=== PATIENT | male | born 1950 | race Caucasian/White ===

== ENCOUNTER 2019-02-11 04:31 | Inpatient (IN) ==
[2019-02-11] MEDS ORDERED: NS 1,000 ML ONE ×2 (04:33→05:17)
[2019-02-11] MEDS ORDERED: NS 1,000 ML IV ONE ×4 (04:37→07:24)
--- NOTE | 2019-02-11 04:46 | PROVIDER DOCUMENTATION ---
HPI-Fever - General Chief Complaint: Shortness of Breath Stated Complaint: AMS/difficulty breathing Time Seen by Provider: 02/11/19 04:40 Source: patient Allergies/Adverse Reactions: Patient Allergies Allergy/AdvReac Type Severity Reaction Status Date / Time No Known Allergies Allergy Verified 01/11/19 20:52 Home Medications: Home Medication List Medication Instructions Recorded Confirmed Last Taken Type Hum Insulin NPH/Reg Insulin Hm 32 units SQ BID 01/31/17 02/11/19 01/11/19 History [Novolin 70-30 100 Unit/ml Vial] Insulin Lispro [Humalog] 5 units SQ DIRECTED 02/11/19 02/11/19 Unknown History - History of Present Illness-Fever Nature of Presenting Problem: Patient is a 69 year old white male with renal failure requiring hemodialysis and sepsis, just discharged from [facility] yesterday evening, who presents by [facility] ambulance with severe hypotension. Patient is folowed by Dr. Morales. Fever Severity/Quality: reports: subjective Onset/Duration: reports: unsure Timing: reports: still present Context: reports: decreased mental status Similar Symptoms Previously?: Yes Recently seen or treated by another doctor?: Yes ([facility]) - Glascow Coma Score Best Eye Response (Shant): (4) open spontaneously Best Verbal Response (Shant): (5) oriented Best Motor Response ([place]): (6) obeys commands [place] Total: 15 Review of Systems - Adult - REVIEW OF SYSTEMS - ADULT ROS:: limited per condition Constitutional: reports: chills Eyes: reports: no symptoms reported Ears, Nose, Mouth & Throat: reports: no symptoms reported Cardiovascular: denies: chest pain Respiratory: reports: shortness of breath Gastrointestinal: denies: abdominal pain Past History - Adult - PAST MEDICAL HISTORY-ADULT Review of Records: reports: Old Records Reviewed, Nursing Assessment Review, Medications Reviewed, Social history reviewed & non-contributory. Cardiovascular: reports: denies history Respiratory: reports: denies history Gastrointestinal: reports: other (gallbladder disease) Genitourinary: reports: dialysis, ESRD, kidney stones Endocrine/Immune: reports: Diabetes - IMMUNIZATION STATUS Childhood Immunizations: See Nurse Assessment Flu Vaccine: See Nurse Assessment - FAMILY HISTORY Family History: reviewed, not pertinent Physical Exam-General - CONSTITUTIONAL General Appearance: other (cool, clammy, slow mentation, oriented to person) - EYES Eyes: other (clear) - HEAD, EARS, NOSE, MOUTH & THROAT HENMT: moist mucous membranes - NECK Neck: supple - RESPIRATORY Respiratory: no respiratory distress, no accessory muscle use, decreased breath sounds, other (large dialysis catheter over right upper chest) - CARDIOVASCULAR Cardiovascular: regular rate, rhythm - GASTROINTESTINAL (ABDOMEN) Abdominal Exam: non tender, soft - LYMPHATIC Lymphatic: no adenopathy - MUSCULOSKELETAL Back Exam: normal inspection Extremity: other (dressing over right groin due to previous central line) - SKIN Integumentary: other (poor turgor, cool) - NEUROLOGIC Neurologic: other (nonfocal) Progress - PLAN OF CARE/RESULTS Progress/Plan/Lab Results: Vital Signs - 8 hr 02/11/19 04:33 02/11/19 05:05 02/11/19 05:10 Temperature Pulse Rate 98 H 89 87 Respiratory Rate 26 H 15 16 Blood Pressure 77/48 80/39 75/41 O2 Sat by Pulse Oximetry 100 100 100 02/11/19 05:15 02/11/19 05:20 02/11/19 05:25 Temperature Pulse Rate 80 89 91 H Respiratory Rate 16 15 14 Blood Pressure 83/46 73/46 87/54 O2 Sat by Pulse Oximetry 100 100 100 02/11/19 05:30 02/11/19 05:35 02/11/19 05:40 Temperature Pulse Rate 88 90 94 H Respiratory Rate 20 16 15 Blood Pressure 82/49 74/53 78/37 O2 Sat by Pulse Oximetry 100 100 100 02/11/19 05:43 02/11/19 05:44 02/11/19 05:45 Temperature 95.3 F L Pulse Rate 90 69 Respiratory Rate 14 16 Blood Pressure 93/47 80/51 O2 Sat by Pulse Oximetry 100 100 02/11/19 05:47 02/11/19 05:49 02/11/19 06:05 Temperature Pulse Rate 90 90 96 H Respiratory Rate 13 18 14 Blood Pressure 81/65 78/36 81/63 O2 Sat by Pulse Oximetry 100 100 100 02/11/19 06:07 02/11/19 06:10 02/11/19 06:12 Temperature Pulse Rate 95 H 95 H 95 H Respiratory Rate 26 H Blood Pressure 78/59 110/77 94/57 O2 Sat by Pulse Oximetry 100 100 100 02/11/19 06:15 02/11/19 06:17 02/11/19 06:20 Temperature Pulse Rate 94 H 94 H 94 H Respiratory Rate 25 H 28 H 24 Blood Pressure 94/58 102/65 107/55 O2 Sat by Pulse Oximetry 100 100 100 02/11/19 06:23 02/11/19 06:25 02/11/19 06:27 Temperature 95.4 F L Pulse Rate 99 H 97 H 97 H Respiratory Rate 14 16 25 H Blood Pressure 117/52 128/69 104/66 O2 Sat by Pulse Oximetry 100 100 100 02/11/19 06:31 02/11/19 06:32 02/11/19 06:35 Temperature Pulse Rate 95 H 95 H 96 H Respiratory Rate 26 H 26 H 25 H Blood Pressure 100/56 90/60 95/68 O2 Sat by Pulse Oximetry 100 96 96 02/11/19 06:37 02/11/19 06:40 02/11/19 06:42 Temperature Pulse Rate 96 H 96 H 96 H Respiratory Rate 17 14 25 H Blood Pressure 108/57 87/57 110/67 O2 Sat by Pulse Oximetry 100 100 100 02/11/19 06:45 02/11/19 07:00 02/11/19 07:20 Temperature Pulse Rate 97 H 100 H Respiratory Rate 31 H 19 Blood Pressure 122/64 125/65 O2 Sat by Pulse Oximetry 100 100 100 02/11/19 07:22 02/11/19 08:00 Temperature 97.4 F L Pulse Rate 101 H 104 H Respiratory Rate 24 14 Blood Pressure 96/53 132/71 O2 Sat by Pulse Oximetry 100 100 Laboratory Results - last 24 hr 02/11/19 02/11/19 02/11/19 05:05 05:05 05:05 WBC 26.59 H RBC 3.35 L Hgb 9.3 L Hct 30.3 L MCV 90.4 MCH 27.8 MCHC 30.7 L RDW Std Deviation 14.3 Plt Count 331 MPV 10.9 H Immature Gran % (Auto) 1.7 H Neut % (Auto) 82.5 H Lymph % (Auto) 8.6 L [place] % (Auto) 7.0 Eos % (Auto) 0.0 Baso % (Auto) 0.2 Immature Gran # (Auto) 0.45 H Neut # (Auto) 21.92 H Lymph # (Auto) 2.29 [place] # (Auto) 1.86 H Eos # (Auto) 0.01 Baso # (Auto) 0.06 Segmented Neutrophils 87 H Band Neutrophils 1 Lymphocytes 6 L Monocytes 4 Atypical Lymphocytes 2.0 Hypochromia 1+ Poikilocytosis OCCASIONAL Anisocytosis OCCASIONAL Macrocytosis OCCASIONAL Ovalocytes OCCASIONAL Stomatocytes OCCASIONAL PT INR PTT (Actin FS) Sodium Potassium Chloride Carbon Dioxide Anion Gap BUN Creatinine Estimated GFR/1.73 m2 BUN/Creatinine Ratio Glucose Calculated Osmolality Calcium Magnesium Total Bilirubin AST ALT Alkaline Phosphatase Creatine Kinase Troponin T 0.425 H* Lwt-F-Lbdhosctrnc Pept 9262 H Total Protein Albumin Globulin Albumin/Globulin Ratio Plasma Lactate Urine Source Urine Color Urine Turbidity Urine pH Ur Specific [place] Urine Protein Ur Glucose (Stick) Ur Ketones (Stick) Urine Blood Urine Nitrite Urine Bilirubin Urobilinogen Dipstick Urine Leukocytes Urine WBC (Auto) Urine RBC (Auto) U Epithel Cells (Auto) Urine Bacteria (Auto) Urine Crystals Small Round Cells Urine Casts Urine Yeast-like Cells Acetone Level 02/11/19 02/11/19 02/11/19 05:05 05:20 05:20 WBC RBC Hgb Hct MCV MCH MCHC RDW Std Deviation Plt Count MPV Immature Gran % (Auto) Neut % (Auto) Lymph % (Auto) [place] % (Auto) Eos % (Auto) Baso % (Auto) Immature Gran # (Auto) Neut # (Auto) Lymph # (Auto) [place] # (Auto) Eos # (Auto) Baso # (Auto) Segmented Neutrophils Band Neutrophils Lymphocytes Monocytes Atypical Lymphocytes Hypochromia Poikilocytosis Anisocytosis Macrocytosis Ovalocytes Stomatocytes PT INR PTT (Actin FS) Sodium 135 L Potassium 4.6 Chloride 98 Carbon Dioxide 5 L Anion Gap 32 BUN 17 Creatinine 3.7 H Estimated GFR/1.73 m2 16 BUN/Creatinine Ratio 5 Glucose 378 H Calculated Osmolality 287 Calcium 7.6 L Magnesium 1.7 Total Bilirubin 0.40 AST 22 ALT 11 Alkaline Phosphatase 416 H Creatine Kinase 80 Troponin T Qnd-C-Yqmnyfkahds Pept Total Protein 4.9 L Albumin 2.6 L Globulin 2.0 Albumin/Globulin Ratio 1.0 Plasma Lactate 5.7 H* Urine Source CATH Urine Color YELLOW Urine Turbidity TURBID Urine pH 6.0 Ur Specific [place] 1.009 Urine Protein 200 A Ur Glucose (Stick) 100 A Ur Ketones (Stick) 10 A Urine Blood MODERATE A Urine Nitrite NEGATIVE Urine Bilirubin NEGATIVE Urobilinogen Dipstick NORMAL Urine Leukocytes LARGE A Urine WBC (Auto) TNTC A Urine RBC (Auto) <10 U Epithel Cells (Auto) <10 Urine Bacteria (Auto) 1+ Urine Crystals NONE SEEN Small Round Cells NONE SEEN Urine Casts NONE SEEN Urine Yeast-like Cells PRESENT Acetone Level 02/11/19 02/11/19 02/11/19 05:20 08:40 09:10 WBC RBC Hgb Hct MCV MCH MCHC RDW Std Deviation Plt Count MPV Immature Gran % (Auto) Neut % (Auto) Lymph % (Auto) [place] % (Auto) Eos % (Auto) Baso % (Auto) Immature Gran # (Auto) Neut # (Auto) Lymph # (Auto) [place] # (Auto) Eos # (Auto) Baso # (Auto) Segmented Neutrophils Band Neutrophils Lymphocytes Monocytes Atypical Lymphocytes Hypochromia Poikilocytosis Anisocytosis Macrocytosis Ovalocytes Stomatocytes PT 15.9 INR 1.20 PTT (Actin FS) 35.7 Sodium Potassium Chloride Carbon Dioxide Anion Gap BUN Creatinine Estimated GFR/1.73 m2 BUN/Creatinine Ratio Glucose Calculated Osmolality Calcium Magnesium Total Bilirubin AST ALT Alkaline Phosphatase Creatine Kinase Troponin T Egd-G-Bxwuntpjgoq Pept Total Protein Albumin Globulin Albumin/Globulin Ratio Plasma Lactate 3.0 H Urine Source Urine Color Urine Turbidity Urine pH Ur Specific [place] Urine Protein Ur Glucose (Stick) Ur Ketones (Stick) Urine Blood Urine Nitrite Urine Bilirubin Urobilinogen Dipstick Urine Leukocytes Urine WBC (Auto) Urine RBC (Auto) U Epithel Cells (Auto) Urine Bacteria (Auto) Urine Crystals Small Round Cells Urine Casts Urine Yeast-like Cells Acetone Level LARGE A Orders Category Date Time Status Admit - [facility] Routine AdmDCTranf 02/11/19 07:49 Active Cardiac Monitoring DIRECTED Care 02/11/19 05:21 Active Core Temperature ORDERED Care 02/11/19 04:46 Active Alan Cath Insertion ORDERED Care 02/11/19 05:12 Active IV Insertion ORDERED Care 02/11/19 05:12 Active Intake and Output-Strict ORDERED Care 02/11/19 05:12 Active Notify MD of + Sepsis Screen NOW Care 02/11/19 05:21 Active Notify MD of + Sepsis Screen NOW Care 02/11/19 09:05 Active Notify MD/PA/BRANDON for exam NOW Care 02/11/19 05:12 Active Notify Physician As Ordered Care 02/11/19 09:05 Active Repeat Vital Signs .Blood Pressure Care 02/11/19 05:12 Active Repeat Vital Signs .Heart Rate Care 02/11/19 05:12 Active Repeat Vital Signs .Oxygen Saturation Care 02/11/19 05:12 Active Repeat Vital Signs .Respiratory Rate Care 02/11/19 05:12 Active Repeat Vital Signs .Temp Care 02/11/19 05:12 Active Update & Confirm Home Medicati ROUTINE Care 02/11/19 08:01 Active CHEST-PORTABLE [RAD] Stat Exams 02/11/19 04:40 Completed ABG [RESP] Routine Lab 02/11/19 05:14 Ordered ABG [RESP] Routine Lab 02/11/19 09:06 Ordered ACETONE SERUM [CHEM] Stat Lab 02/11/19 09:10 Completed BASIC METABOLIC PANEL [CHEM] Routine Lab 02/12/19 06:00 Ordered BLOOD CULTURE [BLDCUL] Stat Lab 02/11/19 05:31 Ordered BNP [PRO B-NATRIURETIC PEPTIDE] Stat Lab 02/11/19 05:05 Completed CBC WITH DIFF [HEME] Routine Lab 02/12/19 06:00 Ordered CBC WITH DIFF [HEME] Stat Lab 02/11/19 05:05 Completed CK PROFILE [SP CHEM] Stat Lab 02/11/19 05:05 Completed CMP [COMPREHENSIVE METABOLIC PANEL] [CHEM] Stat Lab 02/11/19 05:05 Completed LACTATE, PLASMA [CHEM] Lab 02/11/19 08:40 Completed LACTATE, PLASMA [CHEM] Lab 02/11/19 11:30 Uncollected LACTATE, PLASMA [CHEM] Timed Lab 02/11/19 05:20 Completed MAGNESIUM [CHEM] Stat Lab 02/11/19 05:05 Completed PROTIME WITH INR [COAG] Stat Lab 02/11/19 05:20 Completed PROTIME WITH INR [COAG] Stat Lab 02/11/19 09:05 Uncollected PTT [COAG] Stat Lab 02/11/19 05:20 Completed TROPONIN T Stat Lab 02/11/19 05:05 Completed URINALYSIS W/POSS RFLX CULT [URINALYSIS] Stat Lab 02/11/19 05:20 Completed URINE CULTURE [RM] Routine Lab 02/11/19 06:40 Ordered URINE MANUAL MICROSCOPIC [URINALYSIS] Stat Lab 02/11/19 05:20 Completed 0.9% Sodium Chloride Inj [Ns] 1,000 ml Med 02/11/19 04:33 Discontinued .ROUTE As directed 0.9% Sodium Chloride Inj [Ns] 1,000 ml Med 02/11/19 05:17 Discontinued .ROUTE As directed 0.9% Sodium Chloride Inj [Ns] 1,000 ml Med 02/11/19 07:24 Discontinued IV 50 mls/hr 0.9% Sodium Chloride Inj [Ns] 1,000 ml Med 02/11/19 04:37 Discontinued IV 999 mls/hr 0.9% Sodium Chloride Inj [Ns] 1,000 ml Med 02/11/19 04:40 Discontinued IV 999 mls/hr 0.9% Sodium Chloride Inj [Ns] 1,000 ml Med 02/11/19 05:12 Discontinued IV As Directed mls/hr 0.9% Sodium Chloride Inj [Ns] 100 ml Med 02/11/19 05:15 Active Vasopressin [Pitressin] 40 unit IV As Directed mls/hr 0.9% Sodium Chloride Inj [Ns] 500 ml Med 02/11/19 08:31 Discontinued .ROUTE As directed 0.9% Sodium Chloride Inj [Ns] 500 ml Med 02/11/19 05:12 Discontinued IV 999 mls/hr Dextrose 5%-0.45% NaCl Inj [D5 1/2 Ns] 250 ml Med 02/11/19 05:15 Active Norepinephrine [Levophed] 8 mg IV As Directed mls/hr Dextrose 5%-0.45% NaCl Inj [D5 1/2 Ns] 250 ml Med 02/11/19 05:13 Discontinued .ROUTE As directed Dextrose 5%-Water Inj [D5w] 250 ml Med 02/11/19 05:15 Discontinued Epinephrine 8 mg IV As Directed mls/hr Norepinephrine [Levophed] Med 02/11/19 05:11 Discontinued 8 mg .ROUTE .STK-MED ONE Piperacillin/Tazobactam [Zosyn] 3.375 gm Med 02/11/19 05:14 Discontinued 0.9% Sodium Chloride Inj [Ns] 50 ml IV NOW Sodium Bicarbonate 8.4% Med 02/11/19 09:03 Discontinued 50 meq IV NOW ONE Vancomycin 1 gm/Ns Med 02/11/19 05:12 Discontinued 1 gm in 250 ml IV NOW Oxygen Device Stat Oth 02/11/19 05:21 Active Transfer/Admit Order [TRANSFER] Routine Transfer 02/11/19 07:31 Ordered Result Diagrams: 02/11/19 05:05 02/11/19 05:05 - XRAY 1 XRAY Study: Chest XRAY Interpretation: RLL infiltrate - CONSULTS/PCP/HOSPITALIST Notification #1 *Consult/PCP/Hospitalist*: Dr. June, hospitalist Time Discussed: 06:30 Reason/Comments: admit to ICU at [facility] when available Consult Disposition: Admit - CHANGE OF SHIFT REPORT (ED Provider) 1 Report Given and Care Transferred to:: Dr. Thomas Time of Transfer: 07:00 Items Pending: Labs, Physician Consult/Arrival (manage sepsis until bed is available at [facility] ICU) Departure - Departure Date of Disposition Decision: 02/11/19 Time of Disposition Decision: 09:31 DIAGNOSIS: Septic shock UTI (urinary tract infection) Qualifiers: Urinary tract infection type: site unspecified Hematuria presence: with hematuria Qualified Code(s): N39.0 - Urinary tract infection, site not specified Pneumonia Qualifiers: Pneumonia type: due to unspecified organism Laterality: right Lung location: lower lobe of lung Qualified Code(s): J18.1 - Lobar pneumonia, unspecified organism Uncontrolled diabetes mellitus Qualifiers: Diabetes mellitus type: type 2 Glycemic state: with hyperglycemia Qualified Code(s): E11.65 - Type 2 diabetes mellitus with hyperglycemia Disposition: ADMITTED INPATIENT 09 Certified Medical Emergency: Emergent Condition: Critical Referrals and Follow-Ups: Adonay Subramanian [Primary Care Provider] - - Critical Care Note This patient required my direct & personal management of CC.: Yes Total Time (mins): 95 Critical Care Statement: This patient required my direct personal management to treat or rule out processes, the absence of which, could potentiallly result in sudden, clinically significant life or limb threatening deterioration. Attestation - Physician/ LOPEZ Attestation Patient care was provided by Advanced Practice Provider:: No The physician spent face to face time with patient:: Yes Advanced Practice Provider documentation review:: Supervising physician onsite and consulted in the evaluation and care of this patient. The physician did have a face to face encounter with the patient. Sepsis: Tissue Perfusion Assmt - Physical Exam Assessment Date: 02/11/19 Time Assessment Initialized: 07:38 Vital Signs: Last Vital Signs Temp 97.4 F L 02/11/19 08:00 Pulse 104 H 02/11/19 08:00 Resp 14 02/11/19 08:00 BP 132/71 02/11/19 08:00 Pulse Ox 100 02/11/19 08:00 Height 5 ft 11 in Weight 79.379 kg Lung Sounds:: rhonchi, diminished Heart Sounds:: Regular Capillary Refill Time: Greater Than 2 Seconds Skin Exam:: pallor, turgor good - Impression Impression:: Tissue Perfusion Adequate - Plan Plan:: See Orders
[2019-02-11] MEDS ORDERED: LEVOPHED ONE (05:11)
[2019-02-11] MEDS ORDERED: VANCOMYCIN 1 GM/NS 1 GM/250 ML IVPB IV ONE (05:12)
[2019-02-11] MEDS: NS 500 ML IV ONE ×2 (05:12→06:00)
[2019-02-11] MEDS ORDERED: D5 1/2 NS 250 ML ONE (05:13)
[2019-02-11] MEDS ORDERED: ZOSYN 3.375 GM in NS 50 ML IV ONE (05:14)
[2019-02-11] MEDS ORDERED: EPINEPHRINE 8 MG in D5W 250 ML IV SCH (05:15)
[2019-02-11] MEDS ORDERED: PITRESSIN 40 UNIT in NS 100 ML IV SCH (05:15)
[2019-02-11] MEDS: LEVOPHED 8 MG in D5 1/2 NS 250 ML IV SCH ×11 (05:24→13:36)
[2019-02-11 05:33] LABS: BASO# 0.06 X1000 (0.0-0.2); BASO% 0.2 % (0.0-0.8); EOS# 0.01 X1000 (0.0-0.7); HEMATOCRIT 30.3 % (42.0-52.0); HEMOGLOBIN 9.3 g/dL (14.0-18.0); IMM GRAN# 0.45 X1000 (0.0-0.04); IMM GRAN% 1.7 % (0.0-0.5); LYMPH# 2.29 X1000 (1.2-3.4); LYMPH% 8.6 % (20.5-51.1); MCH 27.8 PG (27-31); MCHC 30.7 g/dL (33-37); MCV 90.4 FL (81-99); MONO# 1.86 X1000 (0.11-0.59); MPV 10.9 FL (7.4-10.4); NEUT# 21.92 X1000 (1.4-6.5); NEUT% 82.5 % (42.2-75.2); PLT 331 X1000 (130-400); RBC 3.35 XMIL (4.7-6.1); RDW 14.3 % (11.5-14.5); WBC 26.59 X1000 (4.8-10.8)
[2019-02-11 05:56] LABS: INR 1.2; PROTIME 15.9 Seconds (11.0-16.0)
[2019-02-11 05:57] LABS: PTT 35.7 Seconds (22.3-41.8)
[2019-02-11 06:03] LABS: URINE SOURCE CATH
[2019-02-11 06:15] LABS: ALBUMIN 2.6 g/dL (3.5-5.0); CALCIUM 7.6 mg/dL (8.8-10.2); CREATININE 3.7 mg/dL (0.7-1.2); MAGNESIUM 1.7 mg/dL (1.5-2.7); POTASSIUM 4.6 mmol/L (3.5-5.1); TOTAL BILIRUBIN 0.4 mg/dL (0.20-1.00); TOTAL PROTEIN 4.9 g/dL (6.3-8.3)
[2019-02-11 06:22] LABS: BILIRUBIN URINE NEGATIVE (NEGATIVE); BLOOD URINE MODERATE (NEGATIVE); COLOR YELLOW; GLUCOSE URINE 100 mg/dL (NEGATIVE); KETONE URINE 10 mg/dL (NEGATIVE); LEUKOCYTES URINE LARGE (NEGATIVE); NITRITE URINE NEGATIVE (NEGATIVE); PROTEIN URINE 200 mg/dL (NEGATIVE); SP GRAVITY URINE 1.009; TURBIDITY URINE TURBID (CLEAR); UROBILINOGEN URINE NORMAL (NORMAL)
[2019-02-11 06:29] LABS: BANDS 1 % (0-1); LYMPHS 6 % (21-51); MONO 4 % (1-9); SEGS 87 % (42-75)
[2019-02-11 06:30] LABS: ANISOCYTOSIS OCCASIONAL; HYPOCHROM 1+
[2019-02-11 06:31] LABS: OVALOCYTES OCCASIONAL; POIKILOCYTOSIS OCCASIONAL; STOMATOCYTES OCCASIONAL
[2019-02-11 06:40] LABS: UR EPITHELIAL CELLS <10 /HPF (<10); URINE BACTERIA 1+ /HPF; URINE CASTS NONE SEEN; URINE CRYSTALS NONE SEEN; URINE RBC <10 /HPF (<10); URINE SMALL ROUND CELLS NONE SEEN; URINE WBC TNTC /HPF (<10); URINE YEAST PRESENT
--- NOTE | 2019-02-11 07:07 | Diag Imaging Result Doc PS360 ---
EXAM: CHEST-PORTABLE 02/11/2019 HISTORY: sob TECHNIQUE: AP portable at 0512 COMMENT: There is a double-lumen catheter in the right internal jugular with its tip in the right atrium. There is ill-defined opacity in the right lower lobe which was not present on 02/01/2017. Otherwise are has been no significant change. IMPRESSION: Right lower lobe pneumonia. Electronically signed by Kvng iLzama 02/11/2019 7:05 AM
[2019-02-11] MEDS ORDERED: NS 500 ML ONE (08:31)
[2019-02-11] MEDS ORDERED: SODIUM BICARBONATE 8.4% IV ONE (09:03)
--- NOTE | 2019-02-11 09:10 | HISTORY AND PHYSICAL ---
PRIMARY CARE PHYSICIAN: Dr. Subramanian. CHIEF COMPLAINT: Was brought in by EMS for severe hypotension. HISTORY OF PRESENTING ILLNESS: This is a 69-year-old male who presents to [facility] ER via EMS after he was discharged from [facility] yesterday. Mom is at bedside and states that he had been having some shortness of breath, but she was not sure of the exact diagnosis. He also is an end-stage renal disease patient with hemodialysis and did receive dialysis yesterday around 3 p.m. He arrived to the emergency room this morning around 4:40 a.m. His blood pressure was noted to be 77/48. His core rectal temp was 95 degrees. He was placed on a Bear Hugger. Multiple attempts were made to obtain IV access. They were unable so they had to use his dialysis port or dialysis catheter to his right chest emergently. They placed him on a Levophed drip. He had a white blood cell count of 26.59. His creatinine was 3.7, glucose was 378. His troponin was 0.425. It is felt that may be elevated due to him being end-stage renal disease patient, but we will work that up further and he is plasma lactate was 5.7. Chest x-ray showed a right lower lobe pneumonia so he will be admitted to the intensive care unit at the [facility] for further evaluation and treatment. PAST MEDICAL HISTORY: Diabetes type 2 and end-stage renal disease with dialysis. PAST SURGICAL HISTORY: Of a left ureteroscopy with urethral stent placement. FAMILY HISTORY: Reviewed and noncontributory. SOCIAL HISTORY: Currently lives with family. Denies any tobacco, alcohol or illicit drug use. ALLERGIES: He has no known drug allergies. HOME MEDICATIONS: We will verify current medication list. We will reconcile, review and then restart as appropriate. We will place an order for nursing to update and confirm home medications. LABORATORY DATA: Showed a white blood cell count of 26.59, hemoglobin 9.3, hematocrit 30.3, platelets 331,000. PT and INR of 15.9 and 1.20. Sodium of 135, potassium 4.6, chloride 98, CO2 5, BUN of 17, creatinine 3.7, glucose 378, magnesium 1.7. Troponin of 0.425. ProBNP of 9262. Plasma lactate of 5.7. Urinalysis showed moderate blood, negative nitrites, large leukocytes, 1+ bacteria. Chest x-ray showed a right lower lobe pneumonia. REVIEW OF SYSTEMS: Unable to obtain from patient at this time. PHYSICAL EXAMINATION: On arrival he had a temperature of 95 degrees rectally on arrival, pulse was 98, respirations 26, blood pressure 77/48 and was saturating 100% on a non-rebreather. Blood pressure on a Levophed drip at 5 mcg currently is 132/71. The oral temp at this time is 97.4, and he remains on a Bear Hugger. HEENT: Normocephalic, atraumatic. Normal ENT inspection. Oropharynx and nares are clear. EYES: Pupils are equal, round, reactive to light and accommodation. Extraocular movements are intact. NECK: Normal inspection. Normal range of motion. LUNGS: With decreased breath sounds bilaterally with equal lung expansion and chest wall movement. O2 via nasal cannula currently in use. HEART: Regular rate and rhythm. No murmurs, rubs, or gallops. ABDOMEN: Soft, nontender, nondistended. Bowel sounds are present x4 quadrants. MUSCULOSKELETAL: Has normal inspection. Normal range of motion. Unable to participate in strength examination at this time. NEUROLOGICAL: Cranial nerves 2-12 appear grossly intact. ASSESSMENT: 1. Sepsis. 2. Healthcare acquired right lower lobe pneumonia. 3. Hypothermia. 4. Leukocytosis. 5. Hypotension. 6. An elevated troponin. 7. End-stage renal disease with dialysis. PLAN: He will be transferred to the [facility] to the intensive care unit. Placed on Zosyn 3.375 g IV q.6, vancomycin per pharmacy protocol. DuoNeb q.4 hours. Pattern blood sugars with sliding scale insulin. We need to update and confirm home medications. O2 per protocol. He will need a surgical consultation for central line placement. We will also consult Nephrology and do serial cardiac enzymes q.8 x3. Further orders after being seen by attending. Dictated by BRANDON Parker for Thad Carlton MD cc: BRANDON Parker MD Charles D Coffey, MD
--- NOTE | 2019-02-11 09:33 | HISTORY AND PHYSICAL ---
ADDENDUM: This is a 69-year-old male recently diagnosed with renal failure associated with sepsis. He was in [place] for about 10 days, got started on dialysis. Apparently he went to dialysis yesterday. There was a report his blood pressure was as low as 60. He was still awake I guess, but in any case he was discharged. He had been on Levaquin. It is not clear what his septic source was. There was some concern about his gallbladder. He was never told he had pneumonia, but he was discharged on Levaquin. In any case, he came back for evaluation because of hypotension. He was clinically septic. His blood pressure was low at 77/48. His temperature was 95.3 degrees. His white count is 26,000. His urine looks like there is infection or at least there is gross pyuria. His troponin was elevated. His lactate was elevated. His bicarbonate is 5. His chest x-ray shows a right lower lobe pneumonia. PROBLEM LIST: 1. Septic shock. He is currently on Levophed and stabilized blood pressure. We will presume pneumonia; hospital-acquired is the source and continue broad-spectrum antibiotics. He is on vancomycin and Zosyn. We will have to renally dose those. 2. Profound metabolic acidosis, which is likely lactic acidosis. He is not really azotemic. His BUN is only 17, but his lactate is 5.7. His gap is 32. I am not entirely sure. His sugar is 378, so we also need to probably rule out diabetic ketoacidosis, but in any case the patient is profoundly acidotic. I have started a bicarbonate drip on him, and we have initiated some bicarbonate. I am going to try to get a blood gas on him as well. 3. End-stage renal. He is on dialysis Wednesday, Wednesday, Wednesday. Dr. Jones knows him from [place]. He will evaluate him here. 4. Respiratory failure. We will continue to wean oxygen and follow. Get a Pulmonary consultation. 5. Possible balanitis. He has got irritation around the urethra just below the glans, like almost a constrictive band around his glans. I am not quite sure. Apparently the was aware of that and she describes there were some issues he had with the catheter when he was in [place], so we will get Urology just to look over and recommend wound care, and we will continue to follow. He has a catheter in place that is draining some urine. Continue antibiotics and follow. DISPOSITION: He is critically ill. He will need ICU care. TIME SPENT: 35 minute critical care time for septic shock, IV vasopressors, bicarbonate, and we will continue to monitor. cc: Thad Carlton MD
[2019-02-11 09:58] LABS: INR 1.02; PROTIME 13.9 Seconds (11.0-16.0)
[2019-02-11] MEDS ORDERED: HUMULIN R (PARKWAY) IV ONE ×2 (11:01→15:14)
[2019-02-11] MEDS ORDERED: D50W SYRINGE IV PRN ×2 (11:01→22:45)
[2019-02-11] MEDS ORDERED: HUMULIN R 100 UNIT in NS 100 ML IV SCH ×2 (11:15→22:45)
[2019-02-11] MEDS ORDERED: VANCOMYCIN IV PER PHARMACY MISC SCH (11:24)
[2019-02-11] MEDS ORDERED: HUMALOG SUBQ SCH (11:24)
[2019-02-11] MEDS ORDERED: ZOSYN 2.25 GM in NS 50 ML IV SCH ×2 (11:24→13:00)
[2019-02-11 11:44] LABS: BLOOD TYPE ARTERIAL; SAMPLE BLOOD
[2019-02-11 11:57] LABS: CALCIUM 7.3 mg/dL (8.8-10.2); CREATININE 3.6 mg/dL (0.7-1.2); MAGNESIUM 1.6 mg/dL (1.5-2.7); PHOSPHORUS 4.4 mg/dL (2.7-4.5); POTASSIUM 3.9 mmol/L (3.5-5.1)
[2019-02-11] MEDS ORDERED: SODIUM BICARBONATE 8.4% 150 MEQ in STERILE WATER INJ. 1,000 ML IV SCH (12:00)
[2019-02-11] MEDS ORDERED: HUMALOG (PARKWAY) ONE (12:05)
[2019-02-11 12:37] LABS: BE -8.6 mmoll (-2.0-2.0); BLOOD TYPE VENOUS; HCO3-(ACT) 18.1 mmoll (22-27); PCO2(98.6) 31 mmHg (40-60); PO2(98.6) 56 mmHg (30-55); SAMPLE BLOOD; SAO2 92.9 % (40.0-85.0); pH(98.6) 7.33 (7.32-7.43)
--- NOTE | 2019-02-11 13:10 | EKG Report ---
Test Performed on : 02/11/2019 04:36:18 AM Test Reason : HYPOTENSION Blood Pressure : / mmHG Vent. Rate : 098 BPM Atrial Rate : 100 BPM P-R Int : 000 ms QRS Dur : 082 ms QT Int : 364 ms P-R-T Axes : 000 042 -83 degrees QTc Int : 464 ms Accelerated Junctional rhythm. Nonspecific ST and T wave abnormality Prolonged QT Abnormal ECG When compared with ECG of 01-FEB-2017 07:49, Junctional rhythm. has replaced Sinus rhythm. Non-specific change in ST segment in Inferior leads Inverted T waves have replaced nonspecific T wave abnormality in Inferior leads Unconfirmed Result
--- NOTE | 2019-02-11 13:33 | Diag Imaging Result Doc PS360 ---
EXAM: CHEST-PORTABLE 02/11/2019 HISTORY: confirm central line placement TECHNIQUE: AP portable at 1322 COMMENT: There is a double-lumen right internal jugular central venous catheter with its tip in the right atrium. There is a left subclavian central venous catheter with its tip in the superior vena cava. There is atelectatic appearing opacity in the right middle and lower lobes. This is slightly worse than on 02/11/2019 at 0512. There is no evidence of pneumothorax. No abnormal pleural fluid collections are present. IMPRESSION: Worsened right middle lobe and lower lobe atelectasis. Electronically signed by Kvng Lizama 02/11/2019 1:30 PM
[2019-02-11 14:01] LABS: CALCIUM 7.4 mg/dL (8.8-10.2); CREATININE 3.9 mg/dL (0.7-1.2); POTASSIUM 3.7 mmol/L (3.5-5.1)
[2019-02-11] MEDS ORDERED: HUMULIN R (PARKWAY) 100 UNITS in NS 100 ML IV SCH (14:30)
[2019-02-11] MEDS ORDERED: TYLENOL PO ONE (15:02)
[2019-02-11] MEDS ORDERED: TYLENOL PO PRN (15:04)
[2019-02-11] MEDS ORDERED: HUMULIN R (PARKWAY) ONE (15:16)
--- NOTE | 2019-02-11 15:25 | OPERATIVE NOTE ---
PROCEDURE DATE: 02/11/2019 PROCEDURE: Left subclavian placement. SURGEON: Thad Carlton MD. INDICATION: Intravenous access. The patient has no IV access, except there is a dialysis catheter, and he is requiring several infusions. DESCRIPTION OF PROCEDURE: The patient was prepped in sterile fashion. Consent obtained. Local anesthetic was achieved. I had difficulty passing the catheter initially during the first pass. We got some blood return, but we could not easily pass the catheter. Patient was repositioned slightly and in Trendelenburg, and we were easily able to cannulate the vessel at that point, and the wire placed without difficulty. A triple lumen was placed up to 15 cm and good venous return from all ports. The patient tolerated procedure without difficulty. That being said, chest x-ray confirms placement, although the catheter is a bit high in the SVC, but he has another catheter on the other side that is from a Port-A-Cath. Hopefully, this will only be used short term. Chest x- ray again, confirmed placement. cc: Thad Carlton MD
[2019-02-11 15:44] LABS: CALCIUM 7.5 mg/dL (8.8-10.2); MAGNESIUM 1.6 mg/dL (1.5-2.7); PHOSPHORUS 4.4 mg/dL (2.7-4.5); POTASSIUM 3.7 mmol/L (3.5-5.1)
[2019-02-11] MEDS ORDERED: HUMALOG (PARKWAY) SUBQ SCH (16:00)
--- NOTE | 2019-02-11 17:00 | NEPHROLOGY CONSULTATION ---
DATE: 02/11/2019 REASON FOR CONSULTATION: Acute kidney injury. HISTORY OF PRESENT ILLNESS: Mr. Broussard is a 69-year-old white male who was just hospitalized at [facility] with pneumonia. He was discharged just yesterday evening. While he was hospitalized he developed oliguric acute kidney injury and was treated with renal replacement therapy. He underwent tunnel catheter placement prior to discharge. After getting home his status continually worsened according to his mother. Fatigue, malaise, weakness and therefore she brought him to the emergency room where he was markedly hypotensive and his exam indicated worsening status with metabolic acidosis etc. His anion gap was 32 and bicarbonate of 5. He is therefore being admitted to the hospital. He did have dialysis on yesterday. PAST MEDICAL HISTORY: As above. He also has diabetes and takes insulin. HOME MEDICATIONS: Only illicit drug is insulin. ALLERGIES: None. SOCIAL: Lives with his mother. FAMILY HISTORY/REVIEW OF SYSTEMS: Noncontributory. PHYSICAL EXAMINATION: Vital Signs: Blood pressure 135/62, heart rate 95, respirations 14, afebrile. General: Ill-appearing man lying flat. Skin is warm and dry pale. Pupils are equal. Conjunctivae are pink. Oropharynx is moist. Neck: Neck veins are not distended. Heart: Regular and tachycardic. No gallops. Lungs: Equal, no crackles. Abdomen: Soft, nontender. Bowel sounds present. Extremities: With minimal edema. No clubbing or cyanosis. IMPRESSION: 1. Acute kidney injury. Established acute tubular necrosis. We will continue his routine dialysis management while he is an inpatient. 2. Acidosis. Diabetic ketoacidosis. Dr. Carlton and Johanna Brown are managing this with IV insulin. He will have a central line placed to facilitate care. I agree with empiric broad spectrum antibiotics. His next planned dialysis treatment will be tomorrow. I have reviewed his medication and the only change I will make is to increase the interval back on his Zosyn to q.8 hours. cc: Stefano Jones MD
[2019-02-11 19:09] LABS: ALLEN TEST YES; BE -3.9 mmoll (-3.0-3.0); BLOOD TYPE ARTERIAL; HCO3-(ACT) 21.9 mmoll (20.0-26.0); METHB 0.7 % (0.0-1.5); O2HB 95.4 % (95.0-99.0); PCO2(98.6) 35 mmHg (35-45); PO2(98.6) 78 mmHg (60-100); SAMPLE BLOOD; SAO2 96.5 % (95.0-100.0); THB 9.6 g/dL (11.5-17.4); pH(98.6) 7.38 (7.35-7.45)
[2019-02-11 19:16] LABS: MODALITY CANNULA
[2019-02-11 21:23] LABS: CALCIUM 7.3 mg/dL (8.8-10.2); CREATININE 4.1 mg/dL (0.7-1.2); POTASSIUM 3.5 mmol/L (3.5-5.1)
[2019-02-11] MEDS ORDERED: POTASSIUM CHLORIDE 10% LIQUID PO PRN (22:45)
[2019-02-11] MEDS ORDERED: SODIUM BICARBONATE 8.4% 100 MEQ in STERILE WATER INJ. 500 ML IV PRN (22:45)
[2019-02-11] MEDS ORDERED: POTASSIUM CHLORIDE 40 MEQ/SWI 40 MEQ/100 ML IVPB IV PRN (22:45)
[2019-02-11] MEDS ORDERED: SODIUM PHOSPHATE 30 MMOL in D5W 250 ML IV PRN (22:45)
[2019-02-11] MEDS ORDERED: POTASSIUM CHLORIDE 20 MEQ/SWI 20 MEQ/100 ML IVPB IV PRN (22:45)
[2019-02-11] MEDS ORDERED: MAGNESIUM SULFATE 2 GM/S.W.I. 2 GM/50 ML IVPB IV PRN (22:45)
[2019-02-11] MEDS ORDERED: POTASSIUM CHLORIDE 20% LIQUID PO PRN (22:45)
[2019-02-11] MEDS: ZOSYN 2.25 GM in NS 50 ML IV SCH (23:07)
[2019-02-12 00:05] LABS: CALCIUM 7.4 mg/dL (8.8-10.2); CREATININE 4.3 mg/dL (0.7-1.2); POTASSIUM 3.5 mmol/L (3.5-5.1)
[2019-02-12 04:59] LABS: ALLEN TEST YES; BE 1.5 mmoll (-3.0-3.0); BLOOD TYPE ARTERIAL; HCO3-(ACT) 26.1 mmoll (20.0-26.0); METHB 0.5 % (0.0-1.5); O2(CT) 14.9 mL/dL (15.0-23.0); O2HB 96.2 % (95.0-99.0); PCO2(98.6) 43 mmHg (35-45); PO2(98.6) 95 mmHg (60-100); SAMPLE BLOOD; SAO2 96.9 % (95.0-100.0); THB 10.9 g/dL (11.5-17.4)
[2019-02-12 05:00] LABS: MODALITY CANNULA
[2019-02-12 05:44] LABS: CALCIUM 7.3 mg/dL (8.8-10.2); CREATININE 4.6 mg/dL (0.7-1.2); PHOSPHORUS 4.6 mg/dL (2.7-4.5); POTASSIUM 3.8 mmol/L (3.5-5.1)
[2019-02-12 06:21] LABS: BASO# 0.04 X1000 (0.0-0.2); BASO% 0.2 % (0.0-0.8); EOS# 0.12 X1000 (0.0-0.7); EOS% 0.7 % (0.0-10.0); HEMATOCRIT 25.4 % (42.0-52.0); HEMOGLOBIN 8.4 g/dL (14.0-18.0); IMM GRAN# 0.14 X1000 (0.0-0.04); IMM GRAN% 0.8 % (0.0-0.5); LYMPH# 2.14 X1000 (1.2-3.4); LYMPH% 12.2 % (20.5-51.1); MCH 27.8 PG (27-31); MCHC 33.1 g/dL (33-37); MCV 84.1 FL (81-99); MONO% 9.1 % (1.7-9.3); MPV 10.4 FL (7.4-10.4); NEUT# 13.47 X1000 (1.4-6.5); PLT 237 X1000 (130-400); RBC 3.02 XMIL (4.7-6.1); RDW 13.5 % (11.5-14.5); WBC 17.51 X1000 (4.8-10.8)
[2019-02-12] MEDS: ZOSYN 2.25 GM in NS 50 ML IV SCH ×3 (07:03→23:04)
--- NOTE | 2019-02-12 08:51 | PROGRESS NOTE ---
DATE: 02/12/2019 SUBJECTIVE: This patient seems to be a little bit better compared with yesterday. He is still on pressors. His anion gap closed and he received around 31 units of insulin in the past 24 hours so I will go ahead and put him on insulin 70/30 with 15 units in the morning and 15 in the afternoon, and I will monitor. Also, I will stop the insulin drip 2 hours after giving him the first dose of insulin 70/30. He is going to get dialysis today. He is more awake. He is answering my questions. He is not complaining of chest pain or shortness of breath. He is complaining of some periumbilical discomfort. OBJECTIVE: Vital Signs: Temperature 97.7 degrees, pulse 89, respiratory rate 12, blood pressure 111/58, oxygen saturation 95% on 1 L of nasal cannula. HEENT: Head normocephalic. No trauma. Poor dentition. Neck: Supple. No JVD. No masses. Central trachea. Chest: Decreased breath sounds, mostly at the bases, with right lower thoracic area rhonchi and crepitus. Abdomen: Soft. Some tenderness to palpation at the level of the periumbilical area. Extremities: Trace edema. No clubbing, no cyanosis. Neurological Examination: The patient is awake and alert. He is oriented x3. No focal deficits but generalized weakness. Laboratory: WBCs 17.5, hemoglobin 8.4, hematocrit 25.4, platelets 237,000. Sodium 139, potassium 3.8, chloride 103, bicarbonate 24, BUN 22, creatinine 4.6, glucose 125, calcium 7.3. Troponin 0.387. ASSESSMENT AND PLAN: 1. Septic shock due to right lower lobe pneumonia. Continue with broad-spectrum antibiotics. He seems to be feeling a bit better today. He is not requiring too much oxygen. Blood culture and urine culture are negative. Pending a sputum culture. 2. Diabetic ketoacidosis, resolved. I will put this patient back on insulin 70/30, sliding scale insulin, and I will put this patient on a diet. He seems to be tolerating well ice chips. 3. End-stage renal disease. He will get dialysis hopefully today. 4. Elevated troponin, likely due to his acute kidney injury and severe dehydration/septic shock. Troponin still elevated but getting better compared with admission. He is not complaining of chest pain. I requested an EKG today in the morning again and did not show any ST changes. 5. Uncontrolled type 2 diabetes with a hemoglobin A1c of 10. 6. Profound metabolic acidosis, resolved. 7. Possible balanitis. There is an erythema and irritation around the urethra just below the glans. We have requested a urology evaluation for this case. CRITICAL CARE TIME: 32 minutes. cc: Syd Rodriges MD
[2019-02-12] MEDS: HUMULIN 70/30 SUBQ SCH ×2 (09:10→15:54)
[2019-02-12] MEDS ORDERED: INSULIN PEN NEEDLES ONE (09:12)
[2019-02-12] MEDS ORDERED: CALMOSEPTINE OINTMENT TOP PRN (09:42)
[2019-02-12] MEDS ORDERED: TORADOL IV ONE (09:42)
--- NOTE | 2019-02-12 10:43 | PROVIDER PROGRESS NOTE ---
Progress Note Pulmonary additional note: Full consult dictation to follow. I have seen the case, reviewed the EMR, labs, latest images and other medical teams notes. Also reviewed the [employer] notes and signed necessary form(s). I have noted changes in condition if any from yesterday and did orders. Please see also signed progress sheet. Prognosis: Guarded for now. Septic Shock on pressors, DKA better and ERDS. Respiratory failure is better and now on NC. CXR seen. I reviewed notes from Dr. Anderson and Dr. Carlton I asked staff anesthesiologist about condition changes and if they have any needs in regard to today conditions. I spent 32 minutes in this process.
[2019-02-12] MEDS: HUMULIN R SUBQ SCH ×3 (11:17→21:00)
[2019-02-12] MEDS ORDERED: SODIUM BICARBONATE 8.4% 150 MEQ in STERILE WATER INJ. 1,000 ML IV SCH (12:15)
[2019-02-12 14:10] LABS: BASO# 0.06 X1000 (0.0-0.2); BASO% 0.4 % (0.0-0.8); EOS% 1.4 % (0.0-10.0); HEMOGLOBIN 8.4 g/dL (14.0-18.0); IMM GRAN# 0.08 X1000 (0.0-0.04); IMM GRAN% 0.6 % (0.0-0.5); LYMPH# 1.91 X1000 (1.2-3.4); LYMPH% 13.4 % (20.5-51.1); MCH 27.5 PG (27-31); MCHC 32.3 g/dL (33-37); MCV 85.2 FL (81-99); MONO# 1.14 X1000 (0.11-0.59); MPV 9.6 FL (7.4-10.4); NEUT# 10.82 X1000 (1.4-6.5); NEUT% 76.2 % (42.2-75.2); PLT 307 X1000 (130-400); RBC 3.05 XMIL (4.7-6.1); RDW 13.8 % (11.5-14.5); WBC 14.21 X1000 (4.8-10.8)
[2019-02-12 14:39] LABS: CALCIUM 7.5 mg/dL (8.8-10.2); MAGNESIUM 1.7 mg/dL (1.5-2.7); PHOSPHORUS 4.4 mg/dL (2.7-4.5); POTASSIUM 3.8 mmol/L (3.5-5.1)
[2019-02-12 14:40] LABS: CREATININE 5.2 mg/dL (0.7-1.2)
[2019-02-12] MEDS ORDERED: MORPHINE IV ONE (16:17)
--- NOTE | 2019-02-12 17:40 | EKG Report ---
Test Performed on : 02/12/2019 07:44:13 AM Test Reason : Elevated troponin Blood Pressure : / mmHG Vent. Rate : 089 BPM Atrial Rate : 089 BPM P-R Int : 126 ms QRS Dur : 082 ms QT Int : 380 ms P-R-T Axes : 021 041 036 degrees QTc Int : 462 ms Normal sinus rhythm. Low voltage QRS Borderline ECG When compared with ECG of 11-FEB-2019 04:36, (Unconfirmed) Sinus rhythm. has replaced Junctional rhythm. Non-specific change in ST segment in Inferior leads Confirmed by Brent PIZARRO, Shabbir Patel ([id number]) on 02/13/2019 9:29:02 AM
--- NOTE | 2019-02-12 20:58 | CONSULTATION ---
DATE OF CONSULTATION: 02/12/2019 CONSULTING PHYSICIAN: Dr. Anderson. REASON FOR CONSULTATION: "Balanitis". HISTORY OF PRESENT ILLNESS: A 69-year-old male, known to me in the past secondary to history of urolithiasis. He has poorly controlled diabetes mellitus. He was admitted to [facility] with gallbladder issues and was discharged on 02/10/2019. He re-presented to [facility] secondary to shortness of breath and hypotension. He was placed on pressors and during evaluation was noted to have irritation around the urethra. The patient states that while he was in [place] he had a Alan catheter placed after his foreskin was pulled back with discomfort and it was never replaced. He reports persistent pain at the head of the penis. He has not been circumcised. He denies flank pain. PAST MEDICAL HISTORY: Diabetes mellitus, end-stage renal disease on hemodialysis, urolithiasis. PAST SURGICAL HISTORY: Ureteroscopy with laser lithotripsy. ALLERGIES: No known drug allergies. HOME MEDICATIONS: Insulin. SOCIAL HISTORY: Denies tobacco, alcohol or illicit drug use. FAMILY HISTORY: No malignancies. REVIEW OF SYSTEMS: Reviewed and 12 systems negative except for the HPI. PHYSICAL EXAMINATION: Vital signs: Temperature 98 degrees, P 85, BP 108/61. General: No acute distress. Cooperative male. HEENT: Normocephalic, atraumatic. Cardiovascular: Regular rate and rhythm. Pulmonary: Bilateral breath sounds. Abdomen: Protuberant but soft and nontender to palpation. Normal bowel sounds. Back: No CVA tenderness. : Testes are descended bilaterally, atrophic, but age appropriate. Scrotum is without lesions. Alan catheter is in place. Glans is hyperemic and the foreskin is pulled back with the band consistent with paraphimosis. There is an area of skin breakdown and almost gangrenous appearance at the band level at the distal shaft. Perineum is without rashes or lesions noted. Rectal: Digital rectal examination deferred at this time. PERTINENT LABORATORY DATA: White cell count 14,000, creatinine is 5.3. His urinalysis from 02/11/2018 shows yeast, bacteria, white cells and red cells. His blood sugar was 100 on 02/12/2019. PERTINENT IMAGES: None. ASSESSMENT AND PLAN: A 69-year-old male with diabetes redundant foreskin and paraphimosis. He has evidence of ischemia from the band and appearing skin, but no significant gangrene noted at this time. I have requested for the patient to get 4 mg of morphine. I then used gauze and squeezed the head of the penis in order to decrease the swelling. I was eventually able to pull the skin back over the glans of the glans penis after multiple maneuvers. I have instructed the patient's family that nursing staff can clean the area, but should not retract the redundant foreskin all the way back. We discussed that if he does not heal at the area of the band or continues to have issues he may benefit from circumcision. PLAN: 1. Keep the skin reduced. 2. Its okay to clean the foreskin during his daily baths, but he does not need to have it pulled all the way back as to not have recurrent paraphimosis. 3. We will follow. cc: Miguel Ángel Gomez MD
--- NOTE | 2019-02-12 21:12 | CONSULTATION ---
DATE OF CONSULTATION: 02/12/2019 CHIEF COMPLAINT: Respiratory failure. HISTORY OF PRESENT ILLNESS: This is a 69-year-old male who has a medical history of diabetes mellitus type 2 and end-stage renal disease on dialysis. Recent chest x-ray reveals atelectatic-appearing opacity in the right middle and lower lobes. PAST MEDICAL HISTORY: Diabetes mellitus type 2 and end-stage renal disease with dialysis treatment. PAST SURGICAL HISTORY: Left ureteroscopy with urethral stent placement. FAMILY HISTORY: Noncontributory. SOCIAL HISTORY: Currently lives with family. Denies tobacco, alcohol or illicit drug use. ALLERGIES: No known drug allergies. HOME MEDICATIONS: Please see home reconciliation list. REVIEW OF SYSTEMS: A 10-point review of systems was obtained and the pertinent is listed in the HPI, otherwise noncontributory. LABORATORY DATA: White blood cells 26.59. Hemoglobin 9.3. Hematocrit 30.3. Platelets 331,000. PT and INR of [*]and 1.20. Sodium 135. Potassium 4.6. Chloride 98. CO2 of 5. BUN 17. Creatinine 3.7. Glucose 378. Magnesium 1.7. Troponin of 0.425. ProBNP 9262. Urinalysis showed moderate blood, negative nitrites, large leukocytes, plus-1 bacteria. DIAGNOSTIC DATA: Chest x-ray showed right lower lobe pneumonia. PHYSICAL EXAMINATION: VITAL SIGNS: Blood pressure 94/51, pulse 81, respirations 12, O2 saturation 98 with O2 per nasal cannula at 1 L. GENERAL: This is a 69-year-old male resting quietly in bed in no acute distress at the present time. HEENT: Head is normocephalic, atraumatic. PERRLA noted. Moist mucous membranes. NECK: Neck is supple. Trachea midline. RESPIRATORY: Decreased entry in all 4 quadrants, nonlabored. CARDIOVASCULAR: Regular rate and rhythm. No murmurs, rubs or gallops. S1, S2 auscultated. ABDOMEN: Soft, nontender, nondistended. Bowel sounds are present in all 4 quadrants. NEUROLOGICAL: Awake and alert. ASSESSMENT AND PLAN: 1. Septic shock. He is on pressors. 2. Acute hypoxic respiratory failure. Continue supplemental O2 and we will monitor with ABGs. We will also continue antibiotics as described. 3. Diabetic ketoacidosis. He is on IV insulin. 4. Acute kidney injury. He has established acute tubular necrosis. He is on dialysis Nephrology following. Thank you for the courtesy of this consult. Dictated by BRANDON Spicer for Sandip Berg MD cc: BRANDON Spicer MD
[2019-02-12 22:34] LABS: BASO# 0.02 X1000 (0.0-0.2); BASO% 0.2 % (0.0-0.8); EOS# 0.21 X1000 (0.0-0.7); EOS% 1.8 % (0.0-10.0); HEMATOCRIT 25.2 % (42.0-52.0); HEMOGLOBIN 8.3 g/dL (14.0-18.0); LYMPH# 1.93 X1000 (1.2-3.4); LYMPH% 16.6 % (20.5-51.1); MCH 28.8 PG (27-31); MCHC 32.9 g/dL (33-37); MCV 87.5 FL (81-99); MONO# 1.05 X1000 (0.11-0.59); MPV 9.7 FL (7.4-10.4); NEUT# 8.45 X1000 (1.4-6.5); NEUT% 72.4 % (42.2-75.2); PLT 274 X1000 (130-400); RBC 2.88 XMIL (4.7-6.1); RDW 13.9 % (11.5-14.5); WBC 11.66 X1000 (4.8-10.8)
[2019-02-12 23:15] LABS: CALCIUM 7.6 mg/dL (8.8-10.2); MAGNESIUM 1.7 mg/dL (1.5-2.7); PHOSPHORUS 4.4 mg/dL (2.7-4.5); POTASSIUM 3.9 mmol/L (3.5-5.1)
[2019-02-12 23:30] LABS: CREATININE 5.6 mg/dL (0.7-1.2)
[2019-02-13 05:03] LABS: ALLEN TEST YES; BE 1.3 mmoll (-3.0-3.0); BLOOD TYPE ARTERIAL; HCO3-(ACT) 25.9 mmoll (20.0-26.0); METHB 0.3 % (0.0-1.5); O2(CT) 18.9 mL/dL (15.0-23.0); O2HB 96.9 % (95.0-99.0); PCO2(98.6) 47 mmHg (35-45); PO2(98.6) 114 mmHg (60-100); SAMPLE BLOOD; SAO2 98.3 % (95.0-100.0); THB 13.8 g/dL (11.5-17.4); pH(98.6) 7.37 (7.35-7.45)
[2019-02-13 05:04] LABS: MODALITY CANNULA
[2019-02-13] MEDS: HUMULIN R SUBQ SCH ×4 (06:04→21:41)
[2019-02-13] MEDS: HUMULIN 70/30 SUBQ SCH ×2 (06:04→16:34)
[2019-02-13] MEDS: ZOSYN 2.25 GM in NS 50 ML IV SCH ×3 (06:06→22:15)
[2019-02-13 06:18] LABS: BASO# 0.03 X1000 (0.0-0.2); BASO% 0.3 % (0.0-0.8); EOS# 0.23 X1000 (0.0-0.7); EOS% 2.2 % (0.0-10.0); HEMATOCRIT 25.8 % (42.0-52.0); HEMOGLOBIN 8.3 g/dL (14.0-18.0); IMM GRAN# 0.06 X1000 (0.0-0.04); IMM GRAN% 0.6 % (0.0-0.5); LYMPH# 1.41 X1000 (1.2-3.4); LYMPH% 13.2 % (20.5-51.1); MCH 27.6 PG (27-31); MCHC 32.2 g/dL (33-37); MCV 85.7 FL (81-99); MONO# 0.95 X1000 (0.11-0.59); MONO% 8.9 % (1.7-9.3); MPV 10.6 FL (7.4-10.4); NEUT# 8.01 X1000 (1.4-6.5); NEUT% 74.8 % (42.2-75.2); PLT 236 X1000 (130-400); RBC 3.01 XMIL (4.7-6.1); RDW 13.8 % (11.5-14.5); WBC 10.69 X1000 (4.8-10.8)
[2019-02-13] MEDS ORDERED: HEPARIN IV PRN (06:20)
[2019-02-13] MEDS ORDERED: NS 2,000 ML MISC PRN (06:20)
[2019-02-13] MEDS ORDERED: TIGHT: 0.2 ML/HR FOR DIALYSIS MISC PRN (06:20)
[2019-02-13 06:47] LABS: CALCIUM 7.2 mg/dL (8.8-10.2); CREATININE 5.7 mg/dL (0.7-1.2); MAGNESIUM 1.8 mg/dL (1.5-2.7); PHOSPHORUS 4.8 mg/dL (2.7-4.5); POTASSIUM 4.1 mmol/L (3.5-5.1)
--- NOTE | 2019-02-13 08:22 | PROGRESS NOTE ---
DATE: 02/13/2019 SUBJECTIVE: The patient seems to be much better compared with yesterday. He is not on pressors. His vital signs are more stable. He had an episode of hypoglycemia because this patient has not been eating, even though I put him on half of his insulin dose. He is complaining of generalized weakness. I have requested Physical Therapy to evaluate this patient. OBJECTIVE: Vital Signs: Temperature 98.9 degrees, pulse 90, respiratory rate 15, blood pressure 153/68, oxygen saturation 98 on 2 L of nasal cannula. HEENT: Head normocephalic. No trauma. PERRLA. Neck: Supple. No JVD. No masses. Central trachea. Chest: Decreased breath sounds mostly at the bases, with right lower thoracic area rhonchi and crepitus. Abdomen: Soft. Some tenderness to palpation at the level of the periumbilical area. Extremities: Trace edema. No clubbing, no cyanosis. Neurological: The patient is awake, alert. He is oriented x3, but he does have generalized weakness. LABORATORY DATA: WBC 10.6, hemoglobin 8.3, hematocrit 25.8, platelets 236,000. Sodium 139, potassium 4.1, chloride 101, bicarbonate 25, BUN 27, creatinine 5.7, glucose 189, calcium 7.2. Phosphorus 4.8, magnesium 1.8. ASSESSMENT AND PLAN: 1. Septic shock due to right lower lobe pneumonia. Continue with broad-spectrum antibiotics. He seems to be much better. He is still on nasal cannula. Continue with the same management. 2. Diabetic ketoacidosis, resolved. I put this patient back on insulin 70/30, half of his home dose. He had an episode of hypoglycemia yesterday because he is not eating. I talked to the patient about it. 3. End-stage renal disease. Continue with dialysis as scheduled. 4. Elevated troponin, likely due to his chronic kidney disease, severe dehydration, and septic shock. He is not complaining of chest pain or shortness of breath. No electrocardiogram changes. 5. Uncontrolled type 2 diabetes with a hemoglobin A1c of 10. 6. Profound metabolic acidosis, resolved. 7. Redundant foreskin and paraphimosis. This patient has been evaluated by Urology Department already. He seems to be better. cc: Syd Rodriges MD
[2019-02-13] MEDS: ZOFRAN IV PRN (09:01)
[2019-02-13] MEDS ORDERED: APRESOLINE IV PRN (09:35)
--- NOTE | 2019-02-13 10:01 | PROVIDER PROGRESS NOTE ---
Progress Note Pulmonary additional note: Full consult dictation to follow. I have seen the case, reviewed the EMR, labs, latest images and other medical teams notes. Also reviewed the [employer] notes and signed necessary form(s). I have noted changes in condition if any from yesterday and did orders. Please see also signed progress sheet. Vital Signs 02/12/19 13:15 02/12/19 13:30 02/12/19 13:45 Temperature Pulse Rate 79 84 84 Respiratory Rate 13 11 L 11 L Blood Pressure 90/51 92/56 99/57 O2 Sat by Pulse Oximetry 96 97 97 02/12/19 14:00 02/12/19 14:15 02/12/19 14:30 Temperature Pulse Rate 85 84 85 Respiratory Rate 11 L 7 L 13 Blood Pressure 103/51 105/58 105/50 O2 Sat by Pulse Oximetry 98 98 99 02/12/19 14:45 02/12/19 15:00 02/12/19 15:15 Temperature Pulse Rate 84 87 86 Respiratory Rate 9 L 9 L 11 L Blood Pressure 107/53 107/54 115/57 O2 Sat by Pulse Oximetry 98 98 98 02/12/19 15:30 02/12/19 15:47 02/12/19 16:00 Temperature 97.9 F Pulse Rate 83 88 84 Respiratory Rate 13 16 9 L Blood Pressure 108/56 125/82 109/61 O2 Sat by Pulse Oximetry 99 99 100 02/12/19 16:15 02/12/19 16:30 02/12/19 16:43 Temperature Pulse Rate 89 89 87 Respiratory Rate 9 L 10 L 9 L Blood Pressure 120/61 124/75 124/75 O2 Sat by Pulse Oximetry 100 98 99 02/12/19 16:45 02/12/19 17:01 02/12/19 17:15 Temperature Pulse Rate 86 86 86 Respiratory Rate 8 L 13 11 L Blood Pressure 127/59 113/57 112/54 O2 Sat by Pulse Oximetry 99 97 99 02/12/19 17:30 02/12/19 17:46 02/12/19 18:00 Temperature Pulse Rate 86 81 86 Respiratory Rate 8 L 13 13 Blood Pressure 115/61 100/52 111/61 O2 Sat by Pulse Oximetry 98 98 98 02/12/19 18:15 02/12/19 18:30 02/12/19 18:45 Temperature Pulse Rate 85 83 83 Respiratory Rate 9 L 12 13 Blood Pressure 101/59 105/58 103/58 O2 Sat by Pulse Oximetry 98 99 99 02/12/19 19:05 02/12/19 19:15 02/12/19 19:30 Temperature Pulse Rate 87 78 77 Respiratory Rate 26 H 13 13 Blood Pressure 94/42 107/57 106/53 O2 Sat by Pulse Oximetry 97 99 99 02/12/19 19:45 02/12/19 20:00 02/12/19 20:16 Temperature 97.2 F L Pulse Rate 75 84 83 Respiratory Rate 15 15 15 Blood Pressure 106/56 123/76 122/73 O2 Sat by Pulse Oximetry 99 98 94 L 02/12/19 20:31 02/12/19 20:45 02/12/19 21:00 Temperature Pulse Rate 80 85 87 Respiratory Rate 12 13 11 L Blood Pressure 104/54 112/60 99/52 O2 Sat by Pulse Oximetry 96 99 97 02/12/19 21:16 02/12/19 21:31 02/12/19 21:47 Temperature Pulse Rate 83 83 89 Respiratory Rate 11 L 17 14 Blood Pressure 121/55 97/48 109/53 O2 Sat by Pulse Oximetry 97 96 98 02/12/19 22:00 02/12/19 22:15 02/12/19 22:30 Temperature Pulse Rate 81 84 81 Respiratory Rate 14 12 20 Blood Pressure 117/53 114/59 109/52 O2 Sat by Pulse Oximetry 92 L 94 L 93 L 02/12/19 22:45 02/12/19 23:00 02/12/19 23:16 Temperature Pulse Rate 86 83 88 Respiratory Rate 16 11 L 24 Blood Pressure 113/55 106/60 137/78 O2 Sat by Pulse Oximetry 94 L 95 88 L 02/12/19 23:30 02/12/19 23:45 02/13/19 00:00 Temperature 97.0 F L Pulse Rate 81 78 81 Respiratory Rate 11 L 14 17 Blood Pressure 121/56 114/56 115/55 O2 Sat by Pulse Oximetry 99 99 99 02/13/19 00:15 02/13/19 00:30 02/13/19 00:45 Temperature Pulse Rate 80 79 78 Respiratory Rate 12 18 13 Blood Pressure 118/61 118/60 129/59 O2 Sat by Pulse Oximetry 100 99 100 02/13/19 01:00 02/13/19 01:16 02/13/19 01:31 Temperature Pulse Rate 89 87 87 Respiratory Rate 14 15 18 Blood Pressure 139/69 144/65 134/68 O2 Sat by Pulse Oximetry 100 99 97 02/13/19 01:45 02/13/19 02:00 02/13/19 02:15 Temperature Pulse Rate 81 84 84 Respiratory Rate 16 17 14 Blood Pressure 129/59 136/57 126/60 O2 Sat by Pulse Oximetry 98 97 96 02/13/19 02:30 02/13/19 02:45 02/13/19 03:00 Temperature Pulse Rate 84 85 88 Respiratory Rate 8 L 18 12 Blood Pressure 135/64 136/78 135/62 O2 Sat by Pulse Oximetry 94 L 95 92 L 02/13/19 03:15 02/13/19 03:30 02/13/19 03:45 Temperature Pulse Rate 85 85 85 Respiratory Rate 7 L 14 13 Blood Pressure 132/63 122/62 141/68 O2 Sat by Pulse Oximetry 96 97 100 02/13/19 04:00 02/13/19 04:15 02/13/19 04:30 Temperature 98.9 F Pulse Rate 85 85 84 Respiratory Rate 13 8 L 10 L Blood Pressure 127/71 145/70 134/66 O2 Sat by Pulse Oximetry 100 99 100 02/13/19 04:45 02/13/19 05:00 02/13/19 05:15 Temperature Pulse Rate 84 86 90 Respiratory Rate 14 12 11 L Blood Pressure 140/65 139/64 142/72 O2 Sat by Pulse Oximetry 100 100 100 02/13/19 05:31 02/13/19 05:45 02/13/19 06:00 Temperature Pulse Rate 93 H 88 90 Respiratory Rate 16 15 15 Blood Pressure 143/73 133/71 153/68 O2 Sat by Pulse Oximetry 98 98 02/13/19 07:00 02/13/19 07:16 02/13/19 07:30 Temperature Pulse Rate 95 H 95 H 95 H Respiratory Rate 15 13 13 Blood Pressure 157/77 147/77 146/81 O2 Sat by Pulse Oximetry 99 99 98 02/13/19 07:45 02/13/19 08:00 02/13/19 08:16 Temperature 97.8 F Pulse Rate 95 H 94 H 94 H Respiratory Rate 11 L 10 L 11 L Blood Pressure 148/80 172/87 145/84 O2 Sat by Pulse Oximetry 97 98 93 L 02/13/19 08:31 02/13/19 08:46 02/13/19 08:49 Temperature Pulse Rate 92 H 97 H 97 H Respiratory Rate 12 14 15 Blood Pressure 164/70 162/105 153/84 O2 Sat by Pulse Oximetry 98 100 92 L 02/13/19 09:00 02/13/19 09:04 02/13/19 09:16 Temperature Pulse Rate 95 H 95 H 94 H Respiratory Rate 16 15 9 L Blood Pressure 163/82 169/89 156/78 O2 Sat by Pulse Oximetry 98 100 98 02/13/19 09:30 02/13/19 09:46 02/13/19 10:00 Temperature Pulse Rate 93 H 94 H 97 H Respiratory Rate 12 15 13 Blood Pressure 170/86 156/75 172/81 O2 Sat by Pulse Oximetry 98 96 96 02/13/19 10:16 02/13/19 10:31 02/13/19 10:46 Temperature Pulse Rate 94 H 95 H 93 H Respiratory Rate 17 13 13 Blood Pressure 161/83 164/84 154/86 O2 Sat by Pulse Oximetry 97 97 96 02/13/19 11:00 02/13/19 11:15 02/13/19 11:31 Temperature 97.9 F Pulse Rate 94 H 95 H 97 H Respiratory Rate 19 23 16 Blood Pressure 153/105 166/85 169/89 O2 Sat by Pulse Oximetry 96 97 96 02/13/19 11:46 02/13/19 11:47 Temperature Pulse Rate 96 H 96 H Respiratory Rate 14 9 L Blood Pressure 158/82 O2 Sat by Pulse Oximetry 97 96 Intake & Output 02/12/19 02/13/19 02/13/19 19:59 07:59 19:59 Intake Total 1205 / 3095 1890 / 3095 Output Total 100 / 195 95 / 195 Balance 1105 / 2900 1795 / 2900 Intake: Intake, IV Amount 400 / 1200 800 / 1200 Intake, IVPB 150 / 150 Intake, IV Insulin 4 / 4 Intake, IV Levophed / Intake, Oral Amount 800 / 1740 940 / 1740 Output: Output, Urine Alan Amount 100 / 195 95 / 195 Other: Percent of Meal Consumed Bites Only Prognosis: Guarded for now. Septic Shock is better, DKA better and ERDS. Respiratory failure now on NC. CXR ordered. I reviewed notes from Dr. Anderson I asked staff nurse anesthetist about condition changes and if they have any needs in regard to today conditions. I spent 33 minutes in this process. Laboratory Results 02/12/19 02/12/19 02/12/19 13:53 13:53 15:45 WBC 14.21 H RBC 3.05 L Hgb 8.4 L Hct 26.0 L MCV 85.2 MCH 27.5 MCHC 32.3 L RDW Std Deviation 13.8 Plt Count 307 MPV 9.6 Immature Gran % (Auto) 0.6 H Neut % (Auto) 76.2 H Lymph % (Auto) 13.4 L [place] % (Auto) 8.0 Eos % (Auto) 1.4 Baso % (Auto) 0.4 Immature Gran # (Auto) 0.08 H Neut # (Auto) 10.82 H Lymph # (Auto) 1.91 [place] # (Auto) 1.14 H Eos # (Auto) 0.20 Baso # (Auto) 0.06 Specimen Type Sample Site pH pCO2 pO2 HCO3 Base Excess Oxyhemoglobin ABG O2 Sat (Calculated) ABG O2 Saturation ABG Carboxyhemoglobin ABG Methemoglobin Jaya Test A-a O2 Difference Total Hemoglobin Lactate Liter Flow Blood Gas Modality FiO2 % Sodium 142 Potassium 3.8 Chloride 105 Carbon Dioxide 24 L Anion Gap 13 BUN 24 H Creatinine 5.2 H Estimated GFR/1.73 m2 11 BUN/Creatinine Ratio 5 Glucose 100 POC Glucose 143 H Calculated Osmolality 287 Calcium 7.5 L Phosphorus 4.4 Magnesium 1.7 02/12/19 02/12/19 02/12/19 19:59 21:00 22:15 WBC RBC Hgb Hct MCV MCH MCHC RDW Std Deviation Plt Count MPV Immature Gran % (Auto) Neut % (Auto) Lymph % (Auto) [place] % (Auto) Eos % (Auto) Baso % (Auto) Immature Gran # (Auto) Neut # (Auto) Lymph # (Auto) [place] # (Auto) Eos # (Auto) Baso # (Auto) Specimen Type Sample Site pH pCO2 pO2 HCO3 Base Excess Oxyhemoglobin ABG O2 Sat (Calculated) ABG O2 Saturation ABG Carboxyhemoglobin ABG Methemoglobin Jaya Test A-a O2 Difference Total Hemoglobin Lactate Liter Flow Blood Gas Modality FiO2 % Sodium 143 Potassium 3.9 Chloride 104 Carbon Dioxide 26 Anion Gap 13 BUN 25 H Creatinine 5.6 H Estimated GFR/1.73 m2 10 BUN/Creatinine Ratio 4 Glucose 83 POC Glucose 64 L D 78 Calculated Osmolality 289 Calcium 7.6 L Phosphorus 4.4 Magnesium 1.7 02/12/19 02/13/19 02/13/19 22:15 04:10 04:10 WBC 11.66 H 10.69 RBC 2.88 L 3.01 L Hgb 8.3 L 8.3 L Hct 25.2 L 25.8 L MCV 87.5 85.7 MCH 28.8 27.6 MCHC 32.9 L 32.2 L RDW Std Deviation 13.9 13.8 Plt Count 274 236 MPV 9.7 10.6 H Immature Gran % (Auto) 0.6 H Neut % (Auto) 72.4 74.8 Lymph % (Auto) 16.6 L 13.2 L [place] % (Auto) 9.0 8.9 Eos % (Auto) 1.8 2.2 Baso % (Auto) 0.2 0.3 Immature Gran # (Auto) 0.06 H Neut # (Auto) 8.45 H 8.01 H Lymph # (Auto) 1.93 1.41 [place] # (Auto) 1.05 H 0.95 H Eos # (Auto) 0.21 0.23 Baso # (Auto) 0.02 0.03 Specimen Type Sample Site pH pCO2 pO2 HCO3 Base Excess Oxyhemoglobin ABG O2 Sat (Calculated) ABG O2 Saturation ABG Carboxyhemoglobin ABG Methemoglobin Jaya Test A-a O2 Difference Total Hemoglobin Lactate Liter Flow Blood Gas Modality FiO2 % Sodium 139 Potassium 4.1 Chloride 101 Carbon Dioxide 25 Anion Gap 13 BUN 27 H Creatinine 5.7 H Estimated GFR/1.73 m2 10 BUN/Creatinine Ratio 5 Glucose 189 H D POC Glucose Calculated Osmolality 288 Calcium 7.2 L Phosphorus 4.8 H Magnesium 1.8 02/13/19 02/13/19 02/13/19 04:55 06:02 08:50 WBC RBC Hgb Hct MCV MCH MCHC RDW Std Deviation Plt Count MPV Immature Gran % (Auto) Neut % (Auto) Lymph % (Auto) [place] % (Auto) Eos % (Auto) Baso % (Auto) Immature Gran # (Auto) Neut # (Auto) Lymph # (Auto) [place] # (Auto) Eos # (Auto) Baso # (Auto) Specimen Type ARTERIAL Sample Site R RADIAL pH 7.37 pCO2 47 H pO2 114 H HCO3 25.9 Base Excess 1.3 Oxyhemoglobin 96.9 ABG O2 Sat (Calculated) 18.9 ABG O2 Saturation 98.3 ABG Carboxyhemoglobin 1.10 ABG Methemoglobin 0.3 Jaya Test YES A-a O2 Difference 27.0 Total Hemoglobin 13.8 Lactate 0.90 Liter Flow 2.0 Blood Gas Modality [place]UL[place] FiO2 % 28.0 Sodium Potassium Chloride Carbon Dioxide Anion Gap BUN Creatinine Estimated GFR/1.73 m2 BUN/Creatinine Ratio Glucose POC Glucose 221 H D 221 H Calculated Osmolality Calcium Phosphorus Magnesium 02/13/19 10:09 WBC RBC Hgb Hct MCV MCH MCHC RDW Std Deviation Plt Count MPV Immature Gran % (Auto) Neut % (Auto) Lymph % (Auto) [place] % (Auto) Eos % (Auto) Baso % (Auto) Immature Gran # (Auto) Neut # (Auto) Lymph # (Auto) [place] # (Auto) Eos # (Auto) Baso # (Auto) Specimen Type Sample Site pH pCO2 pO2 HCO3 Base Excess Oxyhemoglobin ABG O2 Sat (Calculated) ABG O2 Saturation ABG Carboxyhemoglobin ABG Methemoglobin Jaya Test A-a O2 Difference Total Hemoglobin Lactate Liter Flow Blood Gas Modality FiO2 % Sodium Potassium Chloride Carbon Dioxide Anion Gap BUN Creatinine Estimated GFR/1.73 m2 BUN/Creatinine Ratio Glucose POC Glucose 258 H Calculated Osmolality Calcium Phosphorus Magnesium
--- NOTE | 2019-02-13 13:08 | PROVIDER PROGRESS NOTE ---
Progress Note Dr. Berg Progress Note/Pulmonary and or critical care We appreciated progress of care, Complications, change in diagnosis, and instructions to patient under direct supervision of Dr. Berg. Subjective: We note the level of consciousness, bed (chair) position, family presence (if any), level of lethargy, feeling of symptoms, and changes from baseline condition/symptom. The patient feels: no change from baseline The patient has been on RA since this am and he tolerates well. He reports productive cough with white foamy phlegm at times. Family at the bedside. Vital Signs: We reviewed EMR current values for Pulse rate, Blood pressure, Pulse rate, respiratory rate and Pulse oximetry. Also noted other values and trends if present (e.g. I/O, CVP). Vital Signs 02/12/19 17:15 02/12/19 17:30 02/12/19 17:46 Temperature Pulse Rate 86 86 81 Respiratory Rate 11 L 8 L 13 Blood Pressure 112/54 115/61 100/52 O2 Sat by Pulse Oximetry 99 98 98 02/12/19 18:00 02/12/19 18:15 02/12/19 18:30 Temperature Pulse Rate 86 85 83 Respiratory Rate 13 9 L 12 Blood Pressure 111/61 101/59 105/58 O2 Sat by Pulse Oximetry 98 98 99 02/12/19 18:45 02/12/19 19:05 02/12/19 19:15 Temperature Pulse Rate 83 87 78 Respiratory Rate 13 26 H 13 Blood Pressure 103/58 94/42 107/57 O2 Sat by Pulse Oximetry 99 97 99 02/12/19 19:30 02/12/19 19:45 02/12/19 20:00 Temperature 97.2 F L Pulse Rate 77 75 84 Respiratory Rate 13 15 15 Blood Pressure 106/53 106/56 123/76 O2 Sat by Pulse Oximetry 99 99 98 02/12/19 20:16 02/12/19 20:31 02/12/19 20:45 Temperature Pulse Rate 83 80 85 Respiratory Rate 15 12 13 Blood Pressure 122/73 104/54 112/60 O2 Sat by Pulse Oximetry 94 L 96 99 02/12/19 21:00 02/12/19 21:16 02/12/19 21:31 Temperature Pulse Rate 87 83 83 Respiratory Rate 11 L 11 L 17 Blood Pressure 99/52 121/55 97/48 O2 Sat by Pulse Oximetry 97 97 96 02/12/19 21:47 02/12/19 22:00 02/12/19 22:15 Temperature Pulse Rate 89 81 84 Respiratory Rate 14 14 12 Blood Pressure 109/53 117/53 114/59 O2 Sat by Pulse Oximetry 98 92 L 94 L 02/12/19 22:30 02/12/19 22:45 02/12/19 23:00 Temperature Pulse Rate 81 86 83 Respiratory Rate 20 16 11 L Blood Pressure 109/52 113/55 106/60 O2 Sat by Pulse Oximetry 93 L 94 L 95 02/12/19 23:16 02/12/19 23:30 02/12/19 23:45 Temperature Pulse Rate 88 81 78 Respiratory Rate 24 11 L 14 Blood Pressure 137/78 121/56 114/56 O2 Sat by Pulse Oximetry 88 L 99 99 02/13/19 00:00 02/13/19 00:15 02/13/19 00:30 Temperature 97.0 F L Pulse Rate 81 80 79 Respiratory Rate 17 12 18 Blood Pressure 115/55 118/61 118/60 O2 Sat by Pulse Oximetry 99 100 99 02/13/19 00:45 02/13/19 01:00 02/13/19 01:16 Temperature Pulse Rate 78 89 87 Respiratory Rate 13 14 15 Blood Pressure 129/59 139/69 144/65 O2 Sat by Pulse Oximetry 100 100 99 02/13/19 01:31 02/13/19 01:45 02/13/19 02:00 Temperature Pulse Rate 87 81 84 Respiratory Rate 18 16 17 Blood Pressure 134/68 129/59 136/57 O2 Sat by Pulse Oximetry 97 98 97 02/13/19 02:15 02/13/19 02:30 02/13/19 02:45 Temperature Pulse Rate 84 84 85 Respiratory Rate 14 8 L 18 Blood Pressure 126/60 135/64 136/78 O2 Sat by Pulse Oximetry 96 94 L 95 02/13/19 03:00 02/13/19 03:15 02/13/19 03:30 Temperature Pulse Rate 88 85 85 Respiratory Rate 12 7 L 14 Blood Pressure 135/62 132/63 122/62 O2 Sat by Pulse Oximetry 92 L 96 97 02/13/19 03:45 02/13/19 04:00 02/13/19 04:15 Temperature 98.9 F Pulse Rate 85 85 85 Respiratory Rate 13 13 8 L Blood Pressure 141/68 127/71 145/70 O2 Sat by Pulse Oximetry 100 100 99 02/13/19 04:30 02/13/19 04:45 02/13/19 05:00 Temperature Pulse Rate 84 84 86 Respiratory Rate 10 L 14 12 Blood Pressure 134/66 140/65 139/64 O2 Sat by Pulse Oximetry 100 100 100 02/13/19 05:15 02/13/19 05:31 02/13/19 05:45 Temperature Pulse Rate 90 93 H 88 Respiratory Rate 11 L 16 15 Blood Pressure 142/72 143/73 133/71 O2 Sat by Pulse Oximetry 100 98 02/13/19 06:00 02/13/19 07:00 02/13/19 07:16 Temperature Pulse Rate 90 95 H 95 H Respiratory Rate 15 15 13 Blood Pressure 153/68 157/77 147/77 O2 Sat by Pulse Oximetry 98 99 99 02/13/19 07:30 02/13/19 07:45 02/13/19 08:00 Temperature 97.8 F Pulse Rate 95 H 95 H 94 H Respiratory Rate 13 11 L 10 L Blood Pressure 146/81 148/80 172/87 O2 Sat by Pulse Oximetry 98 97 98 02/13/19 08:16 02/13/19 08:31 02/13/19 08:46 Temperature Pulse Rate 94 H 92 H 97 H Respiratory Rate 11 L 12 14 Blood Pressure 145/84 164/70 162/105 O2 Sat by Pulse Oximetry 93 L 98 100 02/13/19 08:49 02/13/19 09:00 02/13/19 09:04 Temperature Pulse Rate 97 H 95 H 95 H Respiratory Rate 15 16 15 Blood Pressure 153/84 163/82 169/89 O2 Sat by Pulse Oximetry 92 L 98 100 02/13/19 09:16 02/13/19 09:30 02/13/19 09:46 Temperature Pulse Rate 94 H 93 H 94 H Respiratory Rate 9 L 12 15 Blood Pressure 156/78 170/86 156/75 O2 Sat by Pulse Oximetry 98 98 96 02/13/19 10:00 02/13/19 10:16 02/13/19 10:31 Temperature Pulse Rate 97 H 94 H 95 H Respiratory Rate 13 17 13 Blood Pressure 172/81 161/83 164/84 O2 Sat by Pulse Oximetry 96 97 97 02/13/19 10:46 02/13/19 11:00 02/13/19 11:15 Temperature Pulse Rate 93 H 94 H 95 H Respiratory Rate 13 19 23 Blood Pressure 154/86 153/105 166/85 O2 Sat by Pulse Oximetry 96 96 97 02/13/19 11:31 02/13/19 11:46 02/13/19 11:47 Temperature 97.9 F Pulse Rate 97 H 96 H 96 H Respiratory Rate 16 14 9 L Blood Pressure 169/89 158/82 O2 Sat by Pulse Oximetry 96 97 96 Intake & Output 02/12/19 02/13/19 02/13/19 19:59 07:59 19:59 Intake Total 1205 / 3095 1890 / 3095 410 / 410 Output Total 100 / 195 95 / 195 188 / 1887 Balance 1105 / 2900 1795 / 2900 -1477 / -1477 Intake: Intake, IV Amount 400 / 1200 800 / 1200 50 / 50 Intake, IVPB 150 / 150 Intake, IV Insulin 4 / 4 Intake, IV Levophed / Intake, Oral Amount 800 / 1740 940 / 1740 360 / 360 Output: Output, Urine Alan Amount 100 / 195 95 / 195 Output Dialysis 1886 Other: Percent of Meal Consumed Bites Only 50% Bowel Movement Color and Soft Character Liquid Brown Objective: General and HEENT: Trachea Midline. Chest: Reduced Entry. shallow CVS: S1 S2. Abdomen: Non-tender. Bowel Sounds present. Soft. edema Extremities: 1+edema. Neuro: Alert. Weakness present. Labs and Radiology: Reviewed available labs and radiology values available at time of EMR review. Laboratory Results 02/12/19 02/12/19 02/12/19 19:59 21:00 22:15 WBC RBC Hgb Hct MCV MCH MCHC RDW Std Deviation Plt Count MPV Immature Gran % (Auto) Neut % (Auto) Lymph % (Auto) [place] % (Auto) Eos % (Auto) Baso % (Auto) Immature Gran # (Auto) Neut # (Auto) Lymph # (Auto) [place] # (Auto) Eos # (Auto) Baso # (Auto) Specimen Type Sample Site pH pCO2 pO2 HCO3 Base Excess Oxyhemoglobin ABG O2 Sat (Calculated) ABG O2 Saturation ABG Carboxyhemoglobin ABG Methemoglobin Jaya Test A-a O2 Difference Total Hemoglobin Lactate Liter Flow Blood Gas Modality FiO2 % Sodium 143 Potassium 3.9 Chloride 104 Carbon Dioxide 26 Anion Gap 13 BUN 25 H Creatinine 5.6 H Estimated GFR/1.73 m2 10 BUN/Creatinine Ratio 4 Glucose 83 POC Glucose 64 L D 78 Calculated Osmolality 289 Calcium 7.6 L Phosphorus 4.4 Magnesium 1.7 02/12/19 02/13/19 02/13/19 22:15 04:10 04:10 WBC 11.66 H 10.69 RBC 2.88 L 3.01 L Hgb 8.3 L 8.3 L Hct 25.2 L 25.8 L MCV 87.5 85.7 MCH 28.8 27.6 MCHC 32.9 L 32.2 L RDW Std Deviation 13.9 13.8 Plt Count 274 236 MPV 9.7 10.6 H Immature Gran % (Auto) 0.6 H Neut % (Auto) 72.4 74.8 Lymph % (Auto) 16.6 L 13.2 L [place] % (Auto) 9.0 8.9 Eos % (Auto) 1.8 2.2 Baso % (Auto) 0.2 0.3 Immature Gran # (Auto) 0.06 H Neut # (Auto) 8.45 H 8.01 H Lymph # (Auto) 1.93 1.41 [place] # (Auto) 1.05 H 0.95 H Eos # (Auto) 0.21 0.23 Baso # (Auto) 0.02 0.03 Specimen Type Sample Site pH pCO2 pO2 HCO3 Base Excess Oxyhemoglobin ABG O2 Sat (Calculated) ABG O2 Saturation ABG Carboxyhemoglobin ABG Methemoglobin Jaya Test A-a O2 Difference Total Hemoglobin Lactate Liter Flow Blood Gas Modality FiO2 % Sodium 139 Potassium 4.1 Chloride 101 Carbon Dioxide 25 Anion Gap 13 BUN 27 H Creatinine 5.7 H Estimated GFR/1.73 m2 10 BUN/Creatinine Ratio 5 Glucose 189 H D POC Glucose Calculated Osmolality 288 Calcium 7.2 L Phosphorus 4.8 H Magnesium 1.8 02/13/19 02/13/19 02/13/19 04:55 06:02 08:50 WBC RBC Hgb Hct MCV MCH MCHC RDW Std Deviation Plt Count MPV Immature Gran % (Auto) Neut % (Auto) Lymph % (Auto) [place] % (Auto) Eos % (Auto) Baso % (Auto) Immature Gran # (Auto) Neut # (Auto) Lymph # (Auto) [place] # (Auto) Eos # (Auto) Baso # (Auto) Specimen Type ARTERIAL Sample Site R RADIAL pH 7.37 pCO2 47 H pO2 114 H HCO3 25.9 Base Excess 1.3 Oxyhemoglobin 96.9 ABG O2 Sat (Calculated) 18.9 ABG O2 Saturation 98.3 ABG Carboxyhemoglobin 1.10 ABG Methemoglobin 0.3 Jaya Test YES A-a O2 Difference 27.0 Total Hemoglobin 13.8 Lactate 0.90 Liter Flow 2.0 Blood Gas Modality CANNULA FiO2 % 28.0 Sodium Potassium Chloride Carbon Dioxide Anion Gap BUN Creatinine Estimated GFR/1.73 m2 BUN/Creatinine Ratio Glucose POC Glucose 221 H D 221 H Calculated Osmolality Calcium Phosphorus Magnesium 02/13/19 02/13/19 10:09 16:29 WBC RBC Hgb Hct MCV MCH MCHC RDW Std Deviation Plt Count MPV Immature Gran % (Auto) Neut % (Auto) Lymph % (Auto) [place] % (Auto) Eos % (Auto) Baso % (Auto) Immature Gran # (Auto) Neut # (Auto) Lymph # (Auto) [place] # (Auto) Eos # (Auto) Baso # (Auto) Specimen Type Sample Site pH pCO2 pO2 HCO3 Base Excess Oxyhemoglobin ABG O2 Sat (Calculated) ABG O2 Saturation ABG Carboxyhemoglobin ABG Methemoglobin Jaya Test A-a O2 Difference Total Hemoglobin Lactate Liter Flow Blood Gas Modality FiO2 % Sodium Potassium Chloride Carbon Dioxide Anion Gap BUN Creatinine Estimated GFR/1.73 m2 BUN/Creatinine Ratio Glucose POC Glucose 258 H 173 H Calculated Osmolality Calcium Phosphorus Magnesium Dr. Berg evaluated and additional note below. Evaluation time in minutes: 31 minutes Assessment: Respiratory failure Septic Shock: improving; off pressor at this time Uncontrolled DM with DKA, improved ERDS, dialysis Atelectasis, RML and RLL Plan Continue current treatment and supportive care per admitting and other teams on the case. Antibiotics Appropriate DVT and GI prophylaxis Input was appreciated from Admitting MD and other teams on the case. See additional notes of Dr. Berg.
--- NOTE | 2019-02-13 13:55 | NEPHROLOGY PROGRESS NOTE ---
DATE: 02/13/2019 TIME SEEN: 0650. SUBJECTIVE: Mr. Broussard is resting quietly in bed. States that he is feeling much better. He currently has IV fluids infusing. Insulin drip is off. OBJECTIVE: Vital Signs: Temperature is 98.9 degrees, blood pressure 145/66, heart rate 96, respirations 10. He is on 2 L nasal cannula. Last recorded saturation 99%. He has had 3095 in. He has had 160 mL out to Alan catheter. Laboratory Data: Sodium 139, potassium 4.1, chloride of 101, CO2 of 25, BUN 27, creatinine 5.7, glucose 189, his anion gap is 13, calcium 7.2, phosphorus 4.8, magnesium of 1.8. White count 10.69, hemoglobin 8.3, hematocrit 25.8, with a platelet count of 236,000. ABGs, pH 7.37, CO2 of 47, PO2 of 114, bicarb 25.9, with a plasma lactate of 0.9 on 2 L nasal cannula. Physical Examination: General: This is a 69-year-old, white male. He is currently resting quietly in bed. He appears chronically ill, though no acute distress. Skin is warm and dry. HEENT: Normocephalic, atraumatic. Conjunctiva are pale pink. He has [place]. Mucous membranes are dry. Neck: Supple. Trachea midline. Trace JVD. Cardiovascular: Regular rate and rhythm. No murmur or gallop appreciated. Lungs: Clear to auscultation bilaterally. Equal excursion, on O2. Abdomen: Soft, nontender. Positive bowel sounds. Genitourinary: Not inspected. Alan catheter is in place, with hemodialysis assist. Extremities: Have 2+ lower extremity edema up into the mid hip/thigh region. Neurological: Alert and oriented x3. ASSESSMENT AND PLAN: 1. Chronic kidney disease stage 5D. The patient is to have hemodialysis today per his routine treatments on Wednesday, Wednesday, Wednesday, but secondary to his fluid volume overload, we will place him on dialysis today. He is to be on a 2 K bath. He will dialyze for 3.5 hours. We will attempt to pull 4 L of ultrafiltration with plan for dialysis again on Wednesday. 2. Electrolytes and acid-base balance. The patient's ketoacidosis and diabetic acidosis have improved. He has been monitored on fluid volume resuscitation with insulin drip. This is currently off. This is being monitored by the primary care. 3. Electrolytes and acid-base balance. Closing gap to be corrected on dialysis. 4. Anemia. This is close to target with a hemoglobin of 11.66. 5. Pneumonia. Patient is currently on renal dosed antibiotics. 6. Septic shock. Blood pressure remains stable, with diminished urine output at this time. I would like to thank you for allowing us to follow with this patient. Dictated by BRANDON Tejada for Stefano Jones MD Face to face encounter, data reviewed, discussed with Chase Skinner on 02/13/19. I agree with the above assessment and plan of care. cc: BRANDON Tejada MD [facility]
[2019-02-13] MEDS ORDERED: VANCOMYCIN 500 MG/NS 500 MG/100 ML IVPB IV SCH (17:00)
[2019-02-14] MEDS: ZOSYN 2.25 GM in NS 50 ML IV SCH ×2 (06:40→16:10)
[2019-02-14] MEDS: HUMULIN 70/30 SUBQ SCH ×2 (06:50→15:54)
[2019-02-14 07:13] LABS: BASO# 0.02 X1000 (0.0-0.2); BASO% 0.3 % (0.0-0.8); CALCIUM 7.4 mg/dL (8.8-10.2); CREATININE 4.5 mg/dL (0.7-1.2); EOS# 0.12 X1000 (0.0-0.7); EOS% 1.9 % (0.0-10.0); HEMATOCRIT 29.1 % (42.0-52.0); HEMOGLOBIN 9.2 g/dL (14.0-18.0); IMM GRAN# 0.02 X1000 (0.0-0.04); IMM GRAN% 0.3 % (0.0-0.5); LYMPH# 1.06 X1000 (1.2-3.4); LYMPH% 16.6 % (20.5-51.1); MCH 27.4 PG (27-31); MCHC 31.6 g/dL (33-37); MCV 86.6 FL (81-99); MONO# 0.52 X1000 (0.11-0.59); MONO% 8.2 % (1.7-9.3); MPV 10.3 FL (7.4-10.4); NEUT# 4.64 X1000 (1.4-6.5); NEUT% 72.7 % (42.2-75.2); PLT 201 X1000 (130-400); POTASSIUM 3.8 mmol/L (3.5-5.1); RBC 3.36 XMIL (4.7-6.1); RDW 13.7 % (11.5-14.5); WBC 6.38 X1000 (4.8-10.8)
--- NOTE | 2019-02-14 07:31 | Diag Imaging Result Doc PS360 ---
EXAM: CHEST-PORTABLE INDICATION: dyspnea TECHNIQUE: One view COMPARISON: 02/11/2019 FINDINGS: Bilateral central lines are in stable positions. There is stable platelike opacity at the right lower lung zone likely representing atelectasis, +/- pneumonia. There is now blunting of the right costophrenic angle suggesting a possible trace effusion. No new consolidation is identified. Cardiac silhouette is stable. IMPRESSION: Suggestion of a trace effusion at the right lung base. Stable chest, otherwise. Electronically signed by Magen Wolff 02/14/2019 7:28 AM
[2019-02-14] MEDS ORDERED: HEPARIN IV PRN (07:41)
[2019-02-14] MEDS ORDERED: NS 2,000 ML MISC PRN (07:41)
[2019-02-14] MEDS: HUMULIN R SUBQ SCH ×4 (08:49→21:00)
--- NOTE | 2019-02-14 09:23 | PROVIDER PROGRESS NOTE ---
Progress Note Pulmonary additional note: I have seen the case, reviewed the EMR, labs, latest images and other medical teams notes. Also reviewed the PIPE [employer]EM[employer] notes and signed necessary form(s). I have noted changes in condition if any from yesterday and did orders. Please see also signed progress sheet. Prognosis: Guarded for now. Since yesterday, he is off pressors and has satisfactory oxygenation. I reviewed notes from Dr. Anderson and Dr. Jones, HD per renal. Pneumonia. Septic Shock is better, DKA better and ERDS. Respiratory failure now on NC. I asked staff radiographer about condition changes and if they have any needs in regard to today conditions. I spent 32 minutes in this process.
--- NOTE | 2019-02-14 10:15 | PROVIDER PROGRESS NOTE ---
Progress Note Dr. Berg Progress Note/Pulmonary and or critical care We appreciated progress of care, Complications, change in diagnosis, and instructions to patient under direct supervision of Dr. Berg. Subjective: We note the level of consciousness, bed (chair) position, family presence (if any), level of lethargy, feeling of symptoms, and changes from baseline condition/symptom. The patient feels better. The patient is on RA since yesterday am and tolerates well. He has difficulty hearing. Patients daughter at the bedside. He has been having diarrhea with slow improvement. He is currently on bedside dialysis. Objective: Vital Signs: We reviewed EMR current values for Pulse rate, Blood pressure, Pulse rate, respiratory rate and Pulse oximetry. Also noted other values and trends if present (e.g. I/O, CVP). Vital Signs 02/13/19 16:23 02/13/19 16:24 02/13/19 16:30 Temperature Pulse Rate 90 88 89 Respiratory Rate 14 15 20 Blood Pressure 129/63 130/60 O2 Sat by Pulse Oximetry 95 95 95 02/13/19 16:45 02/13/19 17:00 02/13/19 17:15 Temperature Pulse Rate 90 91 H 91 H Respiratory Rate 10 L 21 13 Blood Pressure 135/63 136/69 133/65 O2 Sat by Pulse Oximetry 95 95 96 02/13/19 17:30 02/13/19 17:45 02/13/19 18:00 Temperature Pulse Rate 92 H 91 H 92 H Respiratory Rate 13 14 14 Blood Pressure 139/70 129/66 139/82 O2 Sat by Pulse Oximetry 96 96 96 02/13/19 18:15 02/13/19 18:30 02/13/19 18:31 Temperature Pulse Rate 92 H 89 89 Respiratory Rate 12 11 L 8 L Blood Pressure 142/72 128/60 O2 Sat by Pulse Oximetry 97 94 L 96 02/13/19 18:45 02/13/19 19:00 02/13/19 19:15 Temperature Pulse Rate 87 84 83 Respiratory Rate 10 L 12 11 L Blood Pressure 109/56 105/57 96/55 O2 Sat by Pulse Oximetry 95 95 92 L 02/13/19 19:30 02/13/19 19:45 02/13/19 20:00 Temperature 98.5 F Pulse Rate 79 87 81 Respiratory Rate 10 L 10 L 14 Blood Pressure 99/57 116/62 115/57 O2 Sat by Pulse Oximetry 84 L 94 L 93 L 02/13/19 20:15 02/13/19 20:30 02/13/19 20:45 Temperature Pulse Rate 80 88 90 Respiratory Rate 10 L 13 9 L Blood Pressure 107/55 139/69 O2 Sat by Pulse Oximetry 93 L 94 L 91 L 02/13/19 20:46 02/13/19 21:00 02/13/19 21:15 Temperature Pulse Rate 90 87 88 Respiratory Rate 8 L 11 L 17 Blood Pressure 130/73 124/68 129/65 O2 Sat by Pulse Oximetry 94 L 94 L 94 L 02/13/19 21:30 02/13/19 21:45 02/13/19 22:00 Temperature Pulse Rate 90 85 85 Respiratory Rate 10 L 13 15 Blood Pressure 124/63 110/58 101/55 O2 Sat by Pulse Oximetry 94 L 90 L 91 L 02/13/19 22:15 02/13/19 22:30 02/13/19 22:45 Temperature Pulse Rate 85 83 83 Respiratory Rate 11 L 13 14 Blood Pressure 101/54 92/52 109/56 O2 Sat by Pulse Oximetry 92 L 93 L 92 L 02/13/19 23:00 02/13/19 23:15 02/13/19 23:30 Temperature Pulse Rate 81 82 84 Respiratory Rate 15 13 10 L Blood Pressure 105/55 107/60 105/58 O2 Sat by Pulse Oximetry 93 L 95 92 L 02/13/19 23:45 02/14/19 00:00 02/14/19 00:15 Temperature 98.5 F Pulse Rate 81 82 85 Respiratory Rate 16 14 13 Blood Pressure 102/55 111/57 103/57 O2 Sat by Pulse Oximetry 93 L 92 L 91 L 02/14/19 00:30 02/14/19 00:45 02/14/19 01:00 Temperature Pulse Rate 86 87 87 Respiratory Rate 10 L 10 L 12 Blood Pressure 109/57 122/61 117/58 O2 Sat by Pulse Oximetry 91 L 93 L 93 L 02/14/19 01:15 02/14/19 01:30 02/14/19 01:45 Temperature Pulse Rate 89 90 87 Respiratory Rate 13 11 L 10 L Blood Pressure 130/59 121/61 113/53 O2 Sat by Pulse Oximetry 93 L 94 L 90 L 02/14/19 02:00 02/14/19 02:15 02/14/19 02:30 Temperature Pulse Rate 85 83 84 Respiratory Rate 10 L 13 12 Blood Pressure 111/55 109/54 109/54 O2 Sat by Pulse Oximetry 92 L 92 L 91 L 02/14/19 02:45 02/14/19 03:00 02/14/19 03:15 Temperature Pulse Rate 81 81 81 Respiratory Rate 13 10 L 12 Blood Pressure 126/62 128/60 125/60 O2 Sat by Pulse Oximetry 91 L 94 L 95 02/14/19 03:30 02/14/19 03:45 02/14/19 04:00 Temperature 98.6 F Pulse Rate 88 81 81 Respiratory Rate 12 12 12 Blood Pressure 132/67 114/55 114/55 O2 Sat by Pulse Oximetry 91 L 92 L 90 L 02/14/19 04:15 02/14/19 04:30 02/14/19 04:45 Temperature Pulse Rate 80 81 79 Respiratory Rate 12 10 L 12 Blood Pressure 118/62 120/57 114/59 O2 Sat by Pulse Oximetry 91 L 92 L 93 L 02/14/19 05:00 02/14/19 05:15 02/14/19 05:30 Temperature Pulse Rate 87 94 H 94 H Respiratory Rate 12 15 13 Blood Pressure 141/70 141/74 133/76 O2 Sat by Pulse Oximetry 92 L 94 L 02/14/19 05:44 02/14/19 05:45 02/14/19 06:00 Temperature Pulse Rate 92 H 94 H Respiratory Rate 20 12 Blood Pressure 143/80 139/72 O2 Sat by Pulse Oximetry 93 L 94 L 02/14/19 06:15 02/14/19 06:30 02/14/19 06:45 Temperature Pulse Rate 94 H 92 H 94 H Respiratory Rate 6 L 13 10 L Blood Pressure 140/68 140/68 129/83 O2 Sat by Pulse Oximetry 95 02/14/19 07:00 02/14/19 07:15 02/14/19 07:30 Temperature Pulse Rate 93 H 96 H 95 H Respiratory Rate 12 18 9 L Blood Pressure 140/67 147/80 159/82 O2 Sat by Pulse Oximetry 95 95 96 02/14/19 07:36 02/14/19 07:45 02/14/19 08:00 Temperature 98.2 F Pulse Rate 95 H 101 H 96 H Respiratory Rate 10 L 16 9 L Blood Pressure 159/82 145/77 138/71 O2 Sat by Pulse Oximetry 96 95 97 02/14/19 08:15 02/14/19 08:31 02/14/19 08:45 Temperature Pulse Rate 94 H 95 H 96 H Respiratory Rate 11 L 11 L 12 Blood Pressure 124/64 157/84 164/88 O2 Sat by Pulse Oximetry 97 95 99 02/14/19 09:01 02/14/19 09:15 02/14/19 09:30 Temperature Pulse Rate 100 H 91 H 93 H Respiratory Rate 16 10 L 14 Blood Pressure 135/73 152/80 162/83 O2 Sat by Pulse Oximetry 97 96 97 02/14/19 09:45 02/14/19 10:00 02/14/19 10:15 Temperature Pulse Rate 90 88 89 Respiratory Rate 10 L 14 13 Blood Pressure 143/72 150/85 153/79 O2 Sat by Pulse Oximetry 97 95 98 02/14/19 10:30 02/14/19 10:45 02/14/19 11:00 Temperature Pulse Rate 92 H 89 87 Respiratory Rate 14 13 18 Blood Pressure 152/85 149/83 154/91 O2 Sat by Pulse Oximetry 98 99 99 02/14/19 11:15 02/14/19 11:30 02/14/19 11:45 Temperature Pulse Rate 87 88 85 Respiratory Rate 15 13 12 Blood Pressure 155/76 142/84 138/72 O2 Sat by Pulse Oximetry 97 98 98 02/14/19 11:49 02/14/19 12:00 02/14/19 12:15 Temperature 98.1 F Pulse Rate 87 87 88 Respiratory Rate 18 10 L 10 L Blood Pressure 154/91 149/72 150/75 O2 Sat by Pulse Oximetry 99 97 97 02/14/19 12:30 02/14/19 12:45 02/14/19 13:01 Temperature Pulse Rate 92 H 88 91 H Respiratory Rate 15 8 L 21 Blood Pressure 143/78 141/81 146/81 O2 Sat by Pulse Oximetry 99 98 100 02/14/19 13:15 Temperature Pulse Rate 90 Respiratory Rate 12 Blood Pressure 141/89 O2 Sat by Pulse Oximetry 96 Intake & Output 02/13/19 02/14/19 02/14/19 19:59 07:59 19:59 Intake Total 410 / 780 370 / 780 480 / 480 Output Total 1887 / 1887 0 / 0 Balance -1477 / -1107 370 / -1107 480 / 480 Intake: Intake, IV Amount 50 / 300 250 / 300 Intake, Oral Amount 360 / 480 120 / 480 480 / 480 Output: Output, Urine Void Amount 0 / 0 Output Dialysis 1886 Other: Percent of Meal Consumed 50% 50% Number of Bowel Movements 1 1 Bowel Movement Color and Soft Formed Liquid Character Liquid Liquid Brown Brown Brown Physical Examination: General: Chronically ill appearing. Lying in bed with no acute distress noted. Family at the bedside. HEENT: Trachea midline. Mucus pink and moist. Chest: Symmetrical excursion. Clear to auscultation bilaterally. CVS: Regular rate and rhythm. Abdomen: Soft. Nontender. Bowel sounds present. Mildly distended with edema. Extremities: BLE pitting edema 1+ up to thigh region. No cyanosis. No clubbing. Dorsalis pedis 1+ b/l. Neuro: A/O x3. Difficulty hearing. Speech fluent. Follow commands. Labs and Radiology: Reviewed available labs and radiology values available at time of EMR review. Laboratory Results 02/13/19 02/13/19 02/14/19 16:29 20:12 04:30 WBC RBC Hgb Hct MCV MCH MCHC RDW Std Deviation Plt Count MPV Immature Gran % (Auto) Neut % (Auto) Lymph % (Auto) [place] % (Auto) Eos % (Auto) Baso % (Auto) Immature Gran # (Auto) Neut # (Auto) Lymph # (Auto) [place] # (Auto) Eos # (Auto) Baso # (Auto) PTT (Actin FS) Sodium 141 Potassium 3.8 Chloride 102 Carbon Dioxide 28 Anion Gap 11 BUN 19 Creatinine 4.5 H Estimated GFR/1.73 m2 13 BUN/Creatinine Ratio 4 Glucose 115 H POC Glucose 173 H 118 H Calculated Osmolality 284 Calcium 7.4 L 02/14/19 02/14/19 02/14/19 04:30 06:48 08:11 WBC 6.38 RBC 3.36 L Hgb 9.2 L Hct 29.1 L MCV 86.6 MCH 27.4 MCHC 31.6 L RDW Std Deviation 13.7 Plt Count 201 MPV 10.3 Immature Gran % (Auto) 0.3 Neut % (Auto) 72.7 Lymph % (Auto) 16.6 L [place] % (Auto) 8.2 Eos % (Auto) 1.9 Baso % (Auto) 0.3 Immature Gran # (Auto) 0.02 Neut # (Auto) 4.64 Lymph # (Auto) 1.06 L [place] # (Auto) 0.52 Eos # (Auto) 0.12 Baso # (Auto) 0.02 PTT (Actin FS) 34.4 Sodium Potassium Chloride Carbon Dioxide Anion Gap BUN Creatinine Estimated GFR/1.73 m2 BUN/Creatinine Ratio Glucose POC Glucose 156 H Calculated Osmolality Calcium 02/14/19 02/14/19 11:16 15:21 WBC RBC Hgb Hct MCV MCH MCHC RDW Std Deviation Plt Count MPV Immature Gran % (Auto) Neut % (Auto) Lymph % (Auto) [place] % (Auto) Eos % (Auto) Baso % (Auto) Immature Gran # (Auto) Neut # (Auto) Lymph # (Auto) [place] # (Auto) Eos # (Auto) Baso # (Auto) PTT (Actin FS) Sodium Potassium Chloride Carbon Dioxide Anion Gap BUN Creatinine Estimated GFR/1.73 m2 BUN/Creatinine Ratio Glucose POC Glucose 159 H 140 H Calculated Osmolality Calcium Dr. Berg evaluated and additional note below. Evaluation time in minutes: 32 minutes. Assessment: Acute respiratory failure. Improved. Septic shock. Improved. Uncontrolled DM with DKA. Improved. CKD stage 5D. On hemodialysis. Possible RML and RLL pneumonia with possible right basilar trace effusion. Plan: Continue current treatment and supportive care per admitting and other teams on the case. Antibiotics. Encourage incentive spirometer, deep breathing, and cough. Transfer to the medical floor. Input was appreciated from Admitting MD and other teams on the case. See additional notes by Dr. Berg.
--- NOTE | 2019-02-14 10:27 | PROGRESS NOTE ---
DATE: 02/14/2019 SUBJECTIVE: The patient seems to be much better today. He is not on pressors. Vital signs are stable. He is going to get dialysis in the unit, and then probably I can transfer this patient to the medical floor. He is still complaining of generalized weakness. Physical Therapy on board. OBJECTIVE: Vital Signs: Temperature 98.6 degrees, pulse 92, respiratory rate 13, blood pressure 140/68, and oxygen saturation 94% on room air. HEENT: Head normocephalic. No trauma. PERRLA. Neck: Supple. No JVD. No masses. Central trachea. Chest: Decreased breath sounds mostly at the bases with right lower thoracic area rhonchi and crepitus. Abdomen: Soft. There is some tenderness to palpation at the level of the periumbilical area. Extremities: 1+ lower extremity edema, 1 to 2+ upper extremity edema. No clubbing. No cyanosis. Neurological: The patient is awake and alert. He is oriented x3. He does have generalized weakness. LABORATORY: WBC 6.3, hemoglobin 9.2, hematocrit 29.1, and platelets 201,000. Sodium 141, potassium 3.8, chloride 102, bicarbonate 28, BUN 19, creatinine 4.5, glucose 115, and calcium 7.4. ASSESSMENT AND PLAN: 1. Septic shock due to right lower lobe pneumonia. Continue broad-spectrum antibiotics. He seems to be much better. He is not using a nasal cannula at this moment, the blood sugar seems to be stable. 2. Diabetic ketoacidosis, resolved. Continue with same management. Blood sugar under control. 3. End-stage renal disease. Continue with dialysis today. 4. Elevated troponin likely due to CKD, severe dehydration, and septic shock. He is not complaining of chest pain or shortness of breath. I reviewed a couple of EKGs with no changes. 5. Uncontrolled type 2 diabetes with a hemoglobin A1c of 10. 6. Profound metabolic acidosis, resolved. 7. Redundant foreskin and paraphimosis. The patient has been evaluated by Urology Department. We will follow their recommendations. He seems to be better. cc: Syd Rodriges MD
--- NOTE | 2019-02-14 15:40 | NEPHROLOGY PROGRESS NOTE ---
DATE: 02/14/2019 TIME SEEN: 06:55. SUBJECTIVE: Mr. Broussard is resting quietly in bed. States that he is breathing much better. Has no chest pain, though feels very swollen and his hands and legs are tight. OBJECTIVE: Vital Signs: Temperature 98.6 degrees, blood pressure 129/83, heart rate 93, respirations 16. He is on room air. Last recorded saturation 93%. He has had 680 in, 1887 out on hemodialysis. Unable to reach goal due to cramping. Labs: Sodium is 141, potassium 3.8, chloride 102, CO2 28, BUN 19, creatinine 4.5, glucose is 115. His anion gap is 11. His calcium is 7.4. White count 6.38, hemoglobin 9.2, hematocrit 29.1, with a platelet count of 201,000. Chest x-ray this a.m. shows opacity to the right lower lobe zone. Trace pleural effusions to the right lung base. PHYSICAL EXAMINATION: General: This is a 69-year-old white male resting quietly in bed. He appears chronically ill, no acute distress. Skin: Warm and dry. HEENT: Normocephalic, atraumatic. Conjunctiva is pale pink. He has [place]. Mucous membranes are dry. Neck: Supple. Trachea midline. Trace JVD in the upright position. No hepatojugular reflux. Cardiovascular: Regular rate and rhythm. He is without murmur or gallop. Lungs: Clear to auscultation anteriorly. Equal excursion. He does have a faint expiratory wheeze to the left upper low back posterior. Abdomen: Large, round, soft, nontender. Positive bowel sounds. Genitourinary: Not inspected. Alan catheter is in place. Continues with minimal urine output with dialysis assist. Extremities: Continues with 2+ lower extremity edema, 1+ upper extremities, with edema to the mid hip region, nonpitting. Neurological: Alert and oriented x3. ASSESSMENT AND PLAN: 1. Chronic kidney disease stage 5D. Patient had his hemodialysis treatment yesterday. They were only able to achieve 1.8 L of UF. The patient now has a right pleural effusion. Continues with positive JVD and swelling. Secondary to these findings, we will place him on SLED. He is to dialyze for [address] him on a 4 K bath. We will attempt to pull 4 to 6 L of ultrafiltration as tolerated with, again, revaluation for dialysis in the a.m. 2. Electrolytes and acid-base balance. To be corrected on dialysis. 3. Anemia. Hemoglobin of 9.2. This remains stable. 4. Septic shock. The patient is currently not on any pressor support. Followed by the primary care. 5. Pneumonia. He remains on renal dosed antibiotics. I would like to thank you for allowing us to follow with this patient. Dictated by BRANDON Tejada for Stefano Jones MD Face to face encounter, data reviewed, discussed with Chase Skinner on 02/14/19. I agree with the above assessment and plan of care. cc: BRANDON Tejada MD [facility]
[2019-02-14] MEDS: VANCOMYCIN 500 MG/NS 500 MG/100 ML IVPB IV SCH (17:14)
[2019-02-15] MEDS: ZOSYN 2.25 GM in NS 50 ML IV SCH ×3 (01:50→18:28)
[2019-02-15] MEDS ORDERED: G.I. COCKTAIL PO ONE (04:16)
[2019-02-15] MEDS: ZOFRAN IV PRN ×2 (04:19→09:17)
[2019-02-15] MEDS ORDERED: ZOFRAN IV ONE (06:31)
[2019-02-15] MEDS: HUMULIN R SUBQ SCH ×3 (06:35→10:34)
[2019-02-15] MEDS: HUMULIN 70/30 SUBQ SCH (06:37)
[2019-02-15] MEDS ORDERED: NS 1,000 ML IV ONE ×2 (08:10→10:26)
[2019-02-15] MEDS ORDERED: NS 1,000 ML IV SCH (08:15)
--- NOTE | 2019-02-15 09:02 | EKG Report ---
Test Performed on : 02/15/2019 08:46:16 AM Test Reason : CP Blood Pressure : / mmHG Vent. Rate : 109 BPM Atrial Rate : 109 BPM P-R Int : 154 ms QRS Dur : 074 ms QT Int : 314 ms P-R-T Axes : 048 041 086 degrees QTc Int : 422 ms Sinus tachycardia. Low voltage QRS Nonspecific T wave abnormality Abnormal ECG Confirmed by Brent PIZARRO, Shabbir Patel ([id number]) on 02/17/2019 7:00:39 PM
--- NOTE | 2019-02-15 09:10 | Diag Imaging Result Doc PS360 ---
EXAM: CHEST-PORTABLE 02/15/2019 HISTORY: SOB TECHNIQUE: AP portable erect at 0903 COMMENT: There is a double-lumen catheter in the right internal jugular with its tip in the right atrium. There is a left subclavian central venous catheter with its tip in the superior vena cava. Compared to 02/14/2019 the atelectasis over the right base and hazy opacity which was present previously obscuring the hemidiaphragm has improved somewhat. IMPRESSION: Improved right lower lobe atelectasis and pleural effusion. Electronically signed by Kvng Lizama 02/15/2019 9:09 AM
[2019-02-15] MEDS: TRANSDERM-SCOP TD SCH (09:17)
[2019-02-15 09:53] LABS: CALCIUM 7.6 mg/dL (8.8-10.2); CREATININE 3.3 mg/dL (0.7-1.2); MAGNESIUM 1.5 mg/dL (1.5-2.7); PHOSPHORUS 3.9 mg/dL (2.7-4.5); POTASSIUM 5.1 mmol/L (3.5-5.1)
--- NOTE | 2019-02-15 10:28 | PROGRESS NOTE ---
DATE: 02/15/2019 SUBJECTIVE: This patient has been transferred to the medical floor from the ICU. He was doing good yesterday during the day but during the night he started having nausea, vomiting, and diarrhea. As per the which is at the bedside he had so far 5 episodes of liquid bowel movements and also this is associated with nausea and vomiting. He is clinically dehydrated and he his blood sugar increased again to 362, I will give him a sliding scale insulin and I will bolus him with 1 L of fluid and I will re-evaluate this patient. Probably I will give him an extra L later today, I have requested his laboratory again. Since he has been getting antibiotics and now he is having diarrhea, I requested C difficile antigen and toxin lab work. OBJECTIVE: Vital signs: I have requested a new set of vital signs right now, but at 3 a.m. temperature 98.7 degrees, pulse 100, respiratory rate 17, blood pressure 90/40, oxygen saturation 97% on room air. HEENT head normocephalic, no trauma. PERRLA. Dry oral mucosa. Neck is supple no JVD. Central trachea. Chest bilateral coarse breath sounds. Abdomen is soft generalized tenderness to palpation mostly at the level of the periumbilical area. Extremities: Trace lower extremity edema, 1+ upper extremity edema. No clubbing. No cyanosis. Neurological examination: He is awake, alert. He is oriented x3. He seems to be weak and tired. LABORATORY: Glucose 362. Pending the rest of the lab work. ASSESSMENT AND PLAN: 1. Septic shock due to right lower lobe pneumonia. He used to be on pressors but not anymore. Continue with broad spectrum antibiotics. He was getting much better but now he started having nausea, vomiting, and diarrhea. Blood sugar was stable yesterday but today is elevated. We will go ahead and use sliding scale insulin for now, he is getting a bolus of fluid again. 2. Nausea, vomiting, and diarrhea. He had 5 episodes of diarrhea during the night. He is clinically dehydrated. I will go ahead and bolus him, with 1 L of fluid. I have requested C difficile toxin and antigen since he has been on antibiotics to rule out colitis. 3. Dehydration as above. 4. End-stage renal disease. I will continue with dialysis as scheduled. 5. Elevated troponin, likely due to chronic kidney disease, severe dehydration and septic shock upon admission. He is complaining of some chest discomfort at this moment. I will get an EKG stat and a new set of troponins, but I suspect this is going to be high due to his clinical picture. 6. Uncontrolled type 2 diabetes with a hemoglobin A1c of 10. 7. Profound metabolic acidosis, resolved. Pending lab work today though. 8. Redundant foreskin and paraphimosis, already evaluated by Urology Department. This is better. cc: Syd Rodriges MD
[2019-02-15 11:44] LABS: ALLEN TEST YES; BE -9.8 mmoll (-3.0-3.0); BLOOD TYPE ARTERIAL; HCO3-(ACT) 17.3 mmoll (20.0-26.0); METHB 0.8 % (0.0-1.5); O2(CT) 11.5 mL/dL (15.0-23.0); O2HB 96.6 % (95.0-99.0); PCO2(98.6) 23 mmHg (35-45); PO2(98.6) 99 mmHg (60-100); SAMPLE BLOOD; SAO2 97.8 % (95.0-100.0); THB 8.3 g/dL (11.5-17.4); pH(98.6) 7.39 (7.35-7.45)
[2019-02-15 11:45] LABS: MODALITY CANNULA
[2019-02-15] MEDS ORDERED: ZOFRAN IV PRN ×2 (12:10→13:00)
[2019-02-15] MEDS ORDERED: TYLENOL PO PRN ×2 (12:13→13:00)
[2019-02-15] MEDS ORDERED: NS 1,000 ML ONE (12:17)
--- NOTE | 2019-02-15 12:38 | PROVIDER PROGRESS NOTE ---
Progress Note Dr. Berg Progress Note/Pulmonary and or critical care We appreciated progress of care, Complications, change in diagnosis, and instructions to patient under direct supervision of Dr. Berg. Subjective: We note the level of consciousness, bed (chair) position, family presence (if any), level of lethargy, feeling of symptoms, and changes from baseline condition/symptom. The patient was just transferred from the medical floor back to ICU. He states he actually feels better now. It was reported that he has been having N/V and worsening diarrhea since last night. The patient doesnt remember how many episodes of diarrhea he has since this morning. He does have BLQ stomach ache. The patient is on RA and tolerates well. Patients friend at the bedside. Objective: Vital Signs: We reviewed EMR current values for Pulse rate, Blood pressure, Pulse rate, respiratory rate and Pulse oximetry. Also noted other values and trends if present (e.g. I/O, CVP). Vital Signs 02/14/19 14:16 02/14/19 14:30 02/14/19 14:45 Temperature Pulse Rate 91 H 92 H 92 H Respiratory Rate 12 13 12 Blood Pressure 131/82 142/80 118/67 O2 Sat by Pulse Oximetry 96 98 98 02/14/19 15:00 02/14/19 15:15 02/14/19 15:31 Temperature Pulse Rate 90 87 95 H Respiratory Rate 11 L 11 L 15 Blood Pressure 136/68 122/66 145/82 O2 Sat by Pulse Oximetry 98 97 02/14/19 15:45 02/14/19 15:52 02/14/19 16:00 Temperature 97.8 F Pulse Rate 94 H 98 H 93 H Respiratory Rate 21 15 14 Blood Pressure 139/70 145/82 137/70 O2 Sat by Pulse Oximetry 94 L 94 L 94 L 02/14/19 16:15 02/14/19 16:30 02/14/19 16:45 Temperature Pulse Rate 97 H 99 H 101 H Respiratory Rate 18 30 H 14 Blood Pressure 123/66 150/91 136/79 O2 Sat by Pulse Oximetry 97 97 96 02/14/19 17:00 02/14/19 17:15 02/14/19 17:30 Temperature Pulse Rate 98 H 98 H 94 H Respiratory Rate 26 H 18 13 Blood Pressure 139/81 127/69 104/65 O2 Sat by Pulse Oximetry 95 94 L 95 02/14/19 17:45 02/14/19 18:00 02/14/19 18:31 Temperature Pulse Rate 92 H 89 98 H Respiratory Rate 14 13 17 Blood Pressure 104/50 98/50 O2 Sat by Pulse Oximetry 95 95 90 L 02/14/19 18:34 02/14/19 18:45 02/14/19 19:00 Temperature Pulse Rate 98 H 99 H 94 H Respiratory Rate 14 15 13 Blood Pressure 125/64 132/61 125/57 O2 Sat by Pulse Oximetry 98 96 95 02/14/19 19:15 02/14/19 19:30 02/14/19 19:45 Temperature Pulse Rate 93 H 94 H 94 H Respiratory Rate 14 13 11 L Blood Pressure 119/60 109/52 137/69 O2 Sat by Pulse Oximetry 96 96 97 02/14/19 19:46 02/14/19 20:00 02/14/19 20:15 Temperature 98.9 F Pulse Rate 91 H 90 88 Respiratory Rate 13 13 15 Blood Pressure 121/55 130/59 O2 Sat by Pulse Oximetry 95 96 96 02/14/19 20:30 02/14/19 20:45 02/14/19 21:00 Temperature Pulse Rate 89 88 88 Respiratory Rate 13 12 16 Blood Pressure 122/57 117/58 117/56 O2 Sat by Pulse Oximetry 94 L 94 L 94 L 02/14/19 21:15 02/14/19 21:30 02/14/19 22:00 Temperature Pulse Rate 91 H 89 97 H Respiratory Rate 12 12 13 Blood Pressure 101/54 115/55 115/59 O2 Sat by Pulse Oximetry 95 94 L 96 02/15/19 03:34 02/15/19 06:04 02/15/19 08:00 Temperature 98.5 F 98.1 F Pulse Rate 100 H 90 106 H Respiratory Rate 17 14 Blood Pressure 90/40 107/59 O2 Sat by Pulse Oximetry 97 99 02/15/19 12:00 Temperature 98.1 F Pulse Rate 104 H Respiratory Rate 15 Blood Pressure 112/51 O2 Sat by Pulse Oximetry 100 Intake & Output 02/14/19 02/15/19 02/15/19 19:59 07:59 19:59 Intake Total 480 / 870 390 / 870 2268 / 2268 Output Total 5500 / 5500 0 / 5500 0 / 0 Balance -5020 / -4630 390 / -4630 2268 / 2268 Intake: Intake, IV Amount 1999 Intake, IVPB 150 / 150 Intake, IV Insulin 3 / 3 Intake, Oral Amount 480 / 720 240 / 720 265 / 265 Output: Output, Urine Void Amount 0 / 0 0 / 0 0 / 0 Output Dialysis 5500 / 5500 Other: Percent of Meal Consumed 50% Bites Only 0 Number of Bowel Movements 1 Bowel Movement Color and Liquid Character Brown Physical Examination: General: Chronically ill appearing. Lying in bed with no acute distress noted. HEENT: Trachea midline. Mucus pink and slightly dry. Chest: Symmetrical excursion. Shallow breathing. Clear to auscultation bilaterally. CVS: Regular rate and rhythm. Abdomen: Soft. BLQ tenderness. Bowel sounds present. Mildly distended with edema. Extremities: BLE pitting edema 1+ up to thigh region. No cyanosis. No clubbing. Dorsalis pedis 1+ b/l. Neuro: A/O x3. Speech fluent. Follow commands. Labs and Radiology: Reviewed available labs and radiology values available at time of EMR review. Laboratory Results 02/14/19 02/14/19 02/15/19 15:21 20:32 05:53 Specimen Type Sample Site pH pCO2 pO2 HCO3 Base Excess Oxyhemoglobin ABG O2 Sat (Calculated) ABG O2 Saturation ABG Carboxyhemoglobin ABG Methemoglobin Jaya Test A-a O2 Difference Total Hemoglobin Lactate Blood Gas Modality FiO2 % Sodium Potassium Chloride Carbon Dioxide Anion Gap BUN Creatinine Estimated GFR/1.73 m2 BUN/Creatinine Ratio Glucose POC Glucose 140 H 196 H 368 H D Calculated Osmolality Calcium Phosphorus Magnesium Troponin T High Sens Lipase Acetone Level 02/15/19 02/15/19 02/15/19 08:00 08:21 08:55 Specimen Type Sample Site pH pCO2 pO2 HCO3 Base Excess Oxyhemoglobin ABG O2 Sat (Calculated) ABG O2 Saturation ABG Carboxyhemoglobin ABG Methemoglobin Jaya Test A-a O2 Difference Total Hemoglobin Lactate Blood Gas Modality FiO2 % Sodium 135 L Potassium 5.1 D Chloride 97 L Carbon Dioxide 9 L Anion Gap 29 BUN 22 Creatinine 3.3 H Estimated GFR/1.73 m2 19 BUN/Creatinine Ratio 7 Glucose 383 H D POC Glucose 362 H Calculated Osmolality 289 Calcium 7.6 L Phosphorus 3.9 Magnesium 1.5 Troponin T High Sens Lipase Acetone Level MODERATE A 02/15/19 02/15/19 02/15/19 08:55 10:28 11:40 Specimen Type ARTERIAL Sample Site R RADIAL pH 7.39 pCO2 23 L pO2 99 HCO3 17.3 L Base Excess -9.8 L Oxyhemoglobin 96.6 ABG O2 Sat (Calculated) 11.5 L ABG O2 Saturation 97.8 ABG Carboxyhemoglobin 0.40 ABG Methemoglobin 0.8 Jaya Test YES A-a O2 Difference 72.0 Total Hemoglobin 8.3 L Lactate 1.30 Blood Gas Modality CANNULA FiO2 % 28.0 Sodium Potassium Chloride Carbon Dioxide Anion Gap BUN Creatinine Estimated GFR/1.73 m2 BUN/Creatinine Ratio Glucose POC Glucose 331 H Calculated Osmolality Calcium Phosphorus Magnesium Troponin T High Sens 151 H* Lipase Acetone Level 02/15/19 02/15/19 02/15/19 12:12 13:07 13:13 Specimen Type Sample Site pH pCO2 pO2 HCO3 Base Excess Oxyhemoglobin ABG O2 Sat (Calculated) ABG O2 Saturation ABG Carboxyhemoglobin ABG Methemoglobin Jaya Test A-a O2 Difference Total Hemoglobin Lactate Blood Gas Modality FiO2 % Sodium 141 Potassium 4.5 Chloride 106 Carbon Dioxide 18 L Anion Gap 17 BUN 21 Creatinine 3.4 H Estimated GFR/1.73 m2 18 BUN/Creatinine Ratio 6 Glucose 205 H POC Glucose 311 H 241 H Calculated Osmolality 290 Calcium 7.5 L Phosphorus Magnesium 1.7 Troponin T High Sens Lipase Acetone Level 02/15/19 02/15/19 13:13 13:13 Specimen Type Sample Site pH pCO2 pO2 HCO3 Base Excess Oxyhemoglobin ABG O2 Sat (Calculated) ABG O2 Saturation ABG Carboxyhemoglobin ABG Methemoglobin Jaya Test A-a O2 Difference Total Hemoglobin Lactate Blood Gas Modality FiO2 % Sodium Potassium Chloride Carbon Dioxide Anion Gap BUN Creatinine Estimated GFR/1.73 m2 BUN/Creatinine Ratio Glucose POC Glucose Calculated Osmolality Calcium Phosphorus 2.6 L Magnesium Troponin T High Sens Lipase [address] Berg evaluated and additional note below. Evaluation time in minutes: 33 minutes. Assessment: Acute respiratory failure. Improved. Septic shock. Improved. Uncontrolled DM with DKA. Improved. CKD stage 5D. On hemodialysis. Possible RML and RLL pneumonia with possible right basilar trace effusion. Improving. N/V/D. Plan: Continue current treatment and supportive care per admitting and other teams on the case. Antibiotics. Encourage incentive spirometer, deep breathing, and cough. Transfer to ICU. Input was appreciated from Admitting MD and other teams on the case. See additional notes by Dr. Berg.
--- NOTE | 2019-02-15 12:48 | PROVIDER PROGRESS NOTE ---
Progress Note Pulmonary additional note: I have seen the case, reviewed the EMR, labs, latest images and other medical teams notes. Also reviewed the TRUCK AND TRANSPORT MECHANIC notes and signed necessary form(s). I have noted changes in condition if any from yesterday and did orders. Please see also signed progress sheet. Prognosis: Guarded for now. Since yesterday, He was transferred to [facility], developed DKA and sent back to ICU for insulin drip. He has satisfactory oxygenation. I reviewed notes from Dr. Anderson HD per renal. Pneumonia. Septic Shock is better, DKA back on insulin drip and ERDS. Respiratory failure now on RA. Check amylase and lipase. Elevated troponins could be due to ESRD, however in presence of DKA, we ordered EKG, Echo, cardiac eval. Case and details were discussed with patient, and brother and their questions were answered. I asked staff interpreter about condition changes and if they have any needs in regard to today conditions. I spent 33 minutes in this process.
[2019-02-15] MEDS ORDERED: SODIUM BICARBONATE 8.4% 100 MEQ in STERILE WATER INJ. 500 ML IV PRN (13:00)
[2019-02-15] MEDS ORDERED: SODIUM PHOSPHATE 30 MMOL in D5W 250 ML IV PRN (13:00)
[2019-02-15] MEDS ORDERED: POTASSIUM CHLORIDE 10% LIQUID PO PRN (13:00)
[2019-02-15] MEDS ORDERED: POTASSIUM CHLORIDE 40 MEQ/SWI 40 MEQ/100 ML IVPB IV PRN (13:00)
[2019-02-15] MEDS ORDERED: ZOFRAN PO PRN (13:00)
[2019-02-15] MEDS ORDERED: POTASSIUM CHLORIDE 20% LIQUID PO PRN (13:00)
[2019-02-15 14:00] LABS: CALCIUM 7.5 mg/dL (8.8-10.2); CREATININE 3.4 mg/dL (0.7-1.2); MAGNESIUM 1.7 mg/dL (1.5-2.7); POTASSIUM 4.5 mmol/L (3.5-5.1)
[2019-02-15] MEDS: HUMULIN R 100 UNIT in NS 100 ML IV SCH (14:00)
[2019-02-15] MEDS: NS 1,000 ML IV SCH (14:04)
[2019-02-15] MEDS: MAGNESIUM SULFATE 2 GM/S.W.I. 2 GM/50 ML IVPB IV PRN (15:15)
[2019-02-15] MEDS: POTASSIUM CHLORIDE 20 MEQ/SWI 20 MEQ/100 ML IVPB IV PRN ×2 (15:15→22:50)
--- NOTE | 2019-02-15 16:31 | ECHO REPORT ---
ORDER DATE: 02/15/2019 INTERPRETING PHYSICIAN: Dr. Christian Jones. ECHOCARDIOGRAPHIC MEASUREMENTS: 1. Interventricular septum: 1.2 cm. 2. Left ventricular posterior wall: 1.2 cm. 3. Diastolic diameter: 3.9 cm. 4. Aorta: 3.2 cm. 5. Left atrium: 3 cm. SUMMARY OF THE 2-DIMENSIONAL IMAGIN. Aortic valve leaflets were trileaflet, mildly sclerosed, opening normally. 2. Pulmonic valve was normal. 3. Mitral valve was normal. 4. Tricuspid valve was normal. 5. There is mild mitral regurgitation. 6. Peak velocity across the aortic valve was 2.2 meters per second. 7. There is no aortic stenosis or regurgitation. 8. Mild tricuspid regurgitation. 9. Peak velocity across the tricuspid valve was 2 meters per second. 10. Normal left ventricular cavity size. 11. Mild left ventricular hypertrophy. 12. Estimated ejection fraction of 70%. 13. There is no pericardial effusion or obvious intracardiac mass or thrombus seen. cc: MD Sandip Sullivan MD
[2019-02-15 17:31] LABS: CREATININE 3.6 mg/dL (0.7-1.2); MAGNESIUM 2.2 mg/dL (1.5-2.7); POTASSIUM 4.6 mmol/L (3.5-5.1)
--- NOTE | 2019-02-15 18:08 | PROVIDER PROGRESS NOTE ---
Progress Note Subjective: pt voices nausea through the night with 2-3 vomiting episodes unrelieved with prn medications. He also complains of smothering with an o2 sat of 98% on room air. Objective: most recently: temperature 98.1, pulse 106, respirations 14, blood pressure 107/59, 02 sat 99% on 2 L nasal cannula. General: chronically ill white male in apparent GI distress. HEENT: normocephalic, atraumatic, conjunctiva pale pink, pupils equal and reactive. Neck: supple, no evidence of JVD. Cardiovascular: S1S2, regular rate and rhythm with high-pitched murmur heard best at the left sternal border, grade 3/6. No gallop. Respiratory: expiratory wheezes auscultated anteriorly Abdomen: tenderness to the right lower quadrant, soft, nondistended. Bowel sounds active : non-inspected Extremities: generalized edema to the bilateral upper extremities with trace bilateral lower extremity edema. Neurological: alert and oriented to person, place, and time. Labs: sodium 135, potassium 5.1, chloride 97, carbon dioxide nine, BUN 22, creatinine 3.3, anion gap 29. Impression: Acute tubular necrosis without recovery related to septic shock. Pt was placed on sled with a 5.5L removal yesterday. His Creatinine has improved. However, he is extremely nauseous and is vomiting with complaints of smothering. His anion gap is up to 29 and his CO2 is 9. We will order an acetone level to check for DKA. Blood pressure. In target. Fluid volume. Slightly expanded. Anemia. Stable on last labs. Electrolytes. Stable, Acid base balance. Acidotic.
[2019-02-15 22:09] LABS: CREATININE 3.8 mg/dL (0.7-1.2); MAGNESIUM 2.2 mg/dL (1.5-2.7); POTASSIUM 4.8 mmol/L (3.5-5.1)
[2019-02-16] MEDS: ZOSYN 2.25 GM in NS 50 ML IV SCH ×3 (01:27→18:28)
[2019-02-16 01:40] LABS: MAGNESIUM 2.1 mg/dL (1.5-2.7); PHOSPHORUS 3.1 mg/dL (2.7-4.5)
[2019-02-16 01:44] LABS: CALCIUM 7.5 mg/dL (8.8-10.2); POTASSIUM 5.3 mmol/L (3.5-5.1)
[2019-02-16 05:28] LABS: BASO# 0.03 X1000 (0.0-0.2); BASO% 0.3 % (0.0-0.8); EOS# 0.06 X1000 (0.0-0.7); EOS% 0.5 % (0.0-10.0); HEMATOCRIT 24.4 % (42.0-52.0); HEMOGLOBIN 7.5 g/dL (14.0-18.0); IMM GRAN# 0.05 X1000 (0.0-0.04); IMM GRAN% 0.4 % (0.0-0.5); LYMPH# 1.81 X1000 (1.2-3.4); LYMPH% 15.8 % (20.5-51.1); MCH 27.3 PG (27-31); MCHC 30.7 g/dL (33-37); MCV 88.7 FL (81-99); MONO# 0.84 X1000 (0.11-0.59); MONO% 7.3 % (1.7-9.3); MPV 10.5 FL (7.4-10.4); NEUT# 8.67 X1000 (1.4-6.5); NEUT% 75.7 % (42.2-75.2); PLT 218 X1000 (130-400); RBC 2.75 XMIL (4.7-6.1); RDW 13.7 % (11.5-14.5); WBC 11.46 X1000 (4.8-10.8)
[2019-02-16 05:32] LABS: CALCIUM 7.5 mg/dL (8.8-10.2); CREATININE 4.4 mg/dL (0.7-1.2); MAGNESIUM 2.1 mg/dL (1.5-2.7); PHOSPHORUS 3.2 mg/dL (2.7-4.5); POTASSIUM 5.6 mmol/L (3.5-5.1)
[2019-02-16] MEDS ORDERED: ALBUTEROL 0.5% INH CONC FOR HYPERKALEMIA INH ONE (05:48)
[2019-02-16] MEDS ORDERED: D50W SYRINGE IV ONE (05:49)
[2019-02-16] MEDS ORDERED: HUMULIN R IV ONE (05:49)
[2019-02-16] MEDS ORDERED: CALCIUM GLUCONATE 1 GM in NS 50 ML IV ONE (05:50)
[2019-02-16] MEDS: D5W 1,000 ML IV SCH (06:14)
[2019-02-16] MEDS ORDERED: NS 2,000 ML MISC PRN (06:32)
[2019-02-16] MEDS ORDERED: ZOFRAN IV ONE (06:48)
[2019-02-16] MEDS ORDERED: ALBUMIN 25% IV ONE (07:55)
--- NOTE | 2019-02-16 07:57 | PROVIDER PROGRESS NOTE ---
Progress Note Pulmonary additional note: I have seen and examined the case, reviewed the EMR, labs, latest images and other medical teams notes. Also reviewed the DEPUTY BRAND INSPECTOR notes and signed necessary form(s). I have noted changes in condition if any from yesterday and did orders. Please see also signed progress sheet. Since yesterday, He remains on insulin drip for DKA and tolerating RA and NC. He is less acidotic Prognosis: Guarded for now. I reviewed notes from Dr. Jones and Pneumonia. Septic Shock is better, DKA on insulin drip and ESRD. Respiratory failure now on RA and NC. . Elevated troponins could be due to ESRD, Echo seen. EKG seen and lipase is not elevated. cardiology consult is pending. I asked staff psychologist about condition changes and if they have any needs in regard to today conditions. I spent 31 minutes in this process.
[2019-02-16] MEDS ORDERED: NS 500 ML IV ONE (07:58)
[2019-02-16] MEDS ORDERED: LEVOPHED 8 MG in D5 1/2 NS 250 ML IV SCH (08:00)
[2019-02-16 09:03] LABS: POTASSIUM 5.2 mmol/L (3.5-5.1)
[2019-02-16 09:04] LABS: CALCIUM 8.1 mg/dL (8.8-10.2); CREATININE 4.6 mg/dL (0.7-1.2)
[2019-02-16 09:05] LABS: MAGNESIUM 2.1 mg/dL (1.5-2.7); PHOSPHORUS 4.7 mg/dL (2.7-4.5)
--- NOTE | 2019-02-16 09:11 | Diag Imaging Result Doc PS360 ---
EXAM: CHEST-PORTABLE 02/16/2019 HISTORY: increased work of breathing TECHNIQUE: AP portable semiupright at 0851 COMMENT: There is a right internal jugular central venous catheter with its tip in the right atrium. There is a left subclavian catheter with its tip in the superior vena cava. There is atelectasis or pneumonia in the right lower lobe which has not changed significantly since 02/15/2019. IMPRESSION: Stable chest. Electronically signed by Kvng Lizama 02/16/2019 9:09 AM
--- NOTE | 2019-02-16 09:46 | PROGRESS NOTE ---
DATE: 02/16/2019 SUBJECTIVE: The patient has been transferred to the ICU because of he has DKA again, since yesterday. He has been placed on the DKA protocol again. Acetone level is moderate. He was completely awake, alert, and oriented, but he received breathing treatment this morning for hyperkalemia and apparently he became confused, tachycardic, and short of breath after that so we will not repeat that treatment again. Also, he became confused. At this moment, he is oriented to person, date of , and place. He is not oriented to time but before the treatment, he was completely oriented and actually he was sleeping fine. His anion gap is still elevated at 16. He is going to be dialyzed today. They are gone to [facility] him. Nephrology department following this patient closely. They have placed this patient on a little bit of fluids. His white blood cell count increased a little bit to 11.4 and hemoglobin dropped to 7.5. I requested an occult blood in the stool, and I will check the hemoglobin and hematocrit frequently. OBJECTIVE: Vital Signs: Temperature 97.1 degrees, pulse at this moment on the monitor of 113, oxygen saturation 97, breathing 21, blood pressure 100/48. HEENT: Head normocephalic. No trauma. PERRLA. Neck: Supple. No JVD. No masses. Central trachea. Chest: Clear to auscultation. Some crepitus at the bases. Abdomen: Soft. Mild tenderness to palpation at the level of the periumbilical area. Extremities: Trace lower extremity edema, 1+ upper extremity edema. No clubbing. No cyanosis. Neurological Examination: This patient is awake. He is oriented x2. He is confused and he is following commands. He is not oriented to time. Laboratory: WBC 11.4, hemoglobin 7.5, hematocrit 24.4, platelets 218,000. Sodium 140, potassium 5.6, chloride 105, bicarbonate 19, BUN 26, creatinine 4.4, glucose 195, calcium 7.5, albumin 2.1. ASSESSMENT AND PLAN: 1. Septic shock due to right lower lobe pneumonia. He used to be on pressors but not anymore. We will continue with antibiotics. X-ray was better. I had a new x-ray yesterday that showed improved right lower lobe atelectasis and pleural effusion. 2. Nausea, vomiting, and diarrhea. No more diarrhea during the night. He received 2 L of fluid yesterday and now nephrology department put him on a little bit of fluids as well. 3. Encephalopathy, probably related to medications. As per the nurse, after getting treatment with DuoNeb, this patient became confused, tachycardic, and the blood pressure dropped a little bit so no more breathing treatment for this patient. He feels short of breath. He has been placed on a nasal cannula. 4. Dehydration. We will continue to monitor. He will be dialyzed today as well. 5. End-stage renal disease. Continue with dialysis as scheduled. 6. Elevated troponin, likely due to chronic kidney disease, dehydration, septic shock upon admission. At the beginning, his troponin was around 0.38 and now seems to be, with a new high sensitive, 177 which probably 0.17 of the previous generation of troponins. 7. Uncontrolled type 2 diabetes with a hemoglobin A1c of 10. He is in diabetic ketoacidosis right now. 8. Diabetic ketoacidosis. Continue with diabetic ketoacidosis protocol except that he is not going to get the electrolytes and fluids as recommended per protocol because he is an end- stage renal disease. 9. Redundant foreskin and paraphimosis, already evaluated by urology department. I think he is better. CRITICAL CARE TIME: 35 minutes. cc: Syd Rodriges MD
[2019-02-16] MEDS: PROTONIX IV SCH (12:45)
[2019-02-16] MEDS: ZOFRAN IV PRN ×2 (12:45→22:38)
[2019-02-16] MEDS: SODIUM CHLORIDE 0.9% INJ SCH (12:45)
--- NOTE | 2019-02-16 12:49 | EKG Report ---
Test Performed on : 02/16/2019 12:43:02 PM Test Reason : tachy Blood Pressure : / mmHG Vent. Rate : 119 BPM Atrial Rate : 119 BPM P-R Int : 150 ms QRS Dur : 070 ms QT Int : 284 ms P-R-T Axes : 093 064 130 degrees QTc Int : 399 ms Sinus tachycardia. Low voltage QRS ST & T wave abnormality, consider inferior ischemia Abnormal ECG When compared with ECG of 15-FEB-2019 08:46, (Unconfirmed) Inverted T waves have replaced nonspecific T wave abnormality in Inferior leads Confirmed by Brent PIZARRO, Shabbir Patel ([id number]) on 02/17/2019 7:02:30 PM
--- NOTE | 2019-02-16 13:16 | CARDIOLOGY CONSULTATION ---
DATE: 02/16/2019 CHIEF COMPLAINT: Hypotension. HISTORY OF PRESENT ILLNESS: Mr. Broussard is a 69-year-old white male with end-stage renal disease, type 2 diabetes, apparently on hemodialysis for a few weeks who was brought in on the with severe hypotension. Since that admission, he has been found to be septic, has been placed on pressors. He has continued with his hemodialysis schedule. He has had elevated troponins during the course of the hospitalization, initially felt by the Hospitalist Service to be secondary to sepsis/hypotension/end-stage renal disease. With transition from the standard troponin T to a high sensitivity, his initial was 0.4 25, that trended down to 0.387 on the troponin-T and then a more recent check of the high sensitivity showed a check of 177. The patient adamantly denies any chest pain. He is lying in bed. He is following commands. He is currently receiving hemodialysis. PAST MEDICAL HISTORY: Significant for: 1. End-stage renal disease with hemodialysis. He reports he has been receiving it through a [facility] for the last few weeks or so. 2. Diabetes. SOCIAL HISTORY: He currently lives with family; I believe his is at bedside. He does not smoke. No alcohol use. FAMILY HISTORY: Significant for hypertension. REVIEW OF SYSTEMS: A 10 system review of systems is negative, except for those things mentioned in HPI. PHYSICAL EXAMINATION: Vital Signs: He has not been febrile during the course of this hospitalization. He was hypothermic, but with a core temperature of approximately 95 degrees on presentation. His most recent heart rate has been in the 110s to 120s. His blood pressure is 121/53. He continues to be on Levophed. General: He is a somewhat ill-appearing white male in no acute distress. HEENT: Oropharynx is moist. He has poor dentition. Eye examination shows pink conjunctivae, white sclerae. Neck: Examination shows no obvious thyromegaly or thyroid tenderness. Cardiovascular: He is in a tachycardic and regular rhythm. He has no obvious murmurs. He has trace to 1+ bilateral lower extremity edema. Chest: Exam sounds relatively clear. He has no increased work of breathing. Abdomen: Soft, nontender. He has no obvious organomegaly. Skin: Exam is warm and dry throughout. Neurological: He is moving all extremities well. He has no lateralizing deficits. PERTINENT DATA: His echocardiogram on the demonstrates a preserved ejection fraction of 70%. He has mild left ventricular hypertrophy. He had no obvious wall motion abnormalities. No significant valvular abnormalities were noted. His most recent electrocardiogram on the demonstrates what appears to be sinus tachycardia, rate of 109 beats per minute. His most recent chest x-ray on the demonstrates a right internal jugular catheter, as well as a left subclavian catheter, atelectasis or possible pneumonia in the right lower lobe which appeared to be stable. His white count is 11.4, his hematocrit is 24, his platelet count is 218. His sodium is 140, potassium is 5.6, his BUN is 26 with a creatinine of 4.4. His albumin level was 2.1. His troponin-Ts and high sensitivity troponin-Ts have been reviewed as detailed above. ASSESSMENT: Mr. Broussard is a 69-year-old gentleman who presents with sepsis of a possible lung source. He is end-stage renal disease, as well as diabetic ketoacidosis. PLAN: At this point, his troponin elevation does not seem to be secondary to acute coronary syndrome. It is likely secondary to a supply-demand mismatch exacerbated by the sepsis, end-stage renal disease and hypotension. I would not recommend anticoagulation in this patient. His recent ejection fraction was preserved. I am repeating an EKG to evaluate the tachycardia that he is presently in. We will follow up on that EKG and, if no new changes are found, we will likely sign off. cc: Juan Flores MD
--- NOTE | 2019-02-16 13:34 | PROVIDER PROGRESS NOTE ---
Progress Note Dr. Berg Progress Note/Pulmonary and or critical care We appreciated progress of care, Complications, change in diagnosis, and instructions to patient under direct supervision of Dr. Berg. Subjective: We note the level of consciousness, bed (chair) position, family presence (if any), level of lethargy, feeling of symptoms, and changes from baseline condition/symptom. The patient is lying in bed c/o sharp RLQ pain 8/10 with N/V and milder diffuse abd pain. He had cholecystitis last Jan.. No episode of diarrhea since this am. He is on a mask, but tolerates well on room air. He is on bedside dialysis at this time. WBC elevated this am, but no fever overnight. at the bedside. Objective Vital Signs: We reviewed EMR current values for Pulse rate, Blood pressure, Pulse rate, respiratory rate and Pulse oximetry. Also noted other values and trends if present (e.g. I/O, CVP). Vital Signs 02/15/19 19:35 02/16/19 00:00 02/16/19 04:00 Temperature 98.9 F 98.1 F 97.1 F L Pulse Rate 89 89 87 Respiratory Rate 19 10 L 14 Blood Pressure 103/46 116/61 120/56 O2 Sat by Pulse Oximetry 94 L 98 98 02/16/19 06:08 02/16/19 07:35 02/16/19 08:00 Temperature 97.4 F L Pulse Rate 93 H 116 H Respiratory Rate 18 20 Blood Pressure 100/48 O2 Sat by Pulse Oximetry 98 95 100 02/16/19 08:10 02/16/19 08:30 02/16/19 09:00 Temperature Pulse Rate 112 H 112 H Respiratory Rate 18 22 Blood Pressure 83/47 81/44 O2 Sat by Pulse Oximetry 96 95 94 L 02/16/19 09:30 02/16/19 09:44 02/16/19 09:59 Temperature 97.7 F 98.6 F Pulse Rate 109 H 110 H 115 H Respiratory Rate 20 19 17 Blood Pressure 78/42 89/51 88/43 O2 Sat by Pulse Oximetry 98 96 97 02/16/19 10:30 02/16/19 11:00 02/16/19 11:23 Temperature 97.8 F 97.8 F Pulse Rate 120 H 124 H 124 H Respiratory Rate 20 18 Blood Pressure 104/48 121/53 121/53 O2 Sat by Pulse Oximetry 94 L 100 100 02/16/19 11:24 02/16/19 12:30 02/16/19 12:50 Temperature 98.7 F 98.5 F Pulse Rate 124 H 122 H 122 H Respiratory Rate 18 20 20 Blood Pressure 121/53 135/71 136/61 O2 Sat by Pulse Oximetry 100 100 100 02/16/19 13:00 02/16/19 13:30 02/16/19 14:00 Temperature Pulse Rate 122 H 119 H 116 H Respiratory Rate 18 18 18 Blood Pressure 136/57 142/71 117/60 O2 Sat by Pulse Oximetry 100 100 100 02/16/19 14:30 02/16/19 15:00 02/16/19 15:30 Temperature Pulse Rate 114 H 115 H 123 H Respiratory Rate 20 18 18 Blood Pressure 107/73 144/47 145/61 O2 Sat by Pulse Oximetry 99 99 99 02/16/19 16:00 Temperature 100.0 F H Pulse Rate 119 H Respiratory Rate 18 Blood Pressure 127/62 O2 Sat by Pulse Oximetry 98 Intake & Output 02/15/19 02/16/19 02/16/19 19:59 07:59 19:59 Intake Total 2268 / 2585 317 / 2585 1163 / 1163 Output Total 0 / 0 0 / 0 Balance 2268 / 2585 317 / 2585 1163 / 1163 Intake: Intake, IV Amount 1999 / 1999 400 / 400 Intake, IVPB 300 / 300 50 / 50 Intake, IV Insulin 37 / 37 Intake, IV Levophed 126 / 126 Intake, Blood Product Amount 550 / 550 Leukoreduced Pc E0336 Unit 350 / 350 [id number] Intake, Oral Amount 265 / 265 0 / 0 Output: Output, Urine Void Amount 0 / 0 0 / 0 Other: Percent of Meal Consumed 0 Number of Bowel Movements 0 Physical Examination: General: Chronically ill appearing. Lying in bed restless with face grimacing. at the bedside. HEENT: Trachea midline. Mucus pink and moist. Poor dentition. Chest: Symmetrical excursion. Shallow breathing. Clear to auscultation bilaterally. CVS: Regular rate and rhythm. Abdomen: Soft. Generalized tenderness with LLQ pain 8/10. Bowel sounds present. Mildly distended with edema. Extremities: BLE pitting edema 1+ up to thigh region. No cyanosis. No clubbing. Dorsalis pedis 1+ b/l. Neuro: A/O x3. Speech fluent. Follow commands. Labs and Radiology: Reviewed available labs and radiology values available at time of EMR review. Laboratory Results 02/14/19 02/15/19 02/15/19 04:30 17:01 17:01 WBC RBC Hgb Hct MCV MCH MCHC RDW Std Deviation Plt Count MPV Immature Gran % (Auto) Neut % (Auto) Lymph % (Auto) Gates % (Auto) Eos % (Auto) Baso % (Auto) Immature Gran # (Auto) Neut # (Auto) Lymph # (Auto) Gates # (Auto) Eos # (Auto) Baso # (Auto) PTT (Actin FS) Sodium 142 Potassium 4.6 Chloride 107 Carbon Dioxide 23 L Anion Gap 12 BUN 22 Creatinine 3.6 H Estimated GFR/1.73 m2 17 BUN/Creatinine Ratio 6 Glucose 119 H POC Glucose Calculated Osmolality 288 Calcium 8.0 L Phosphorus 2.4 L Magnesium 2.2 Creatine Kinase Albumin Acetone Level Blood Type Blood Type Confirm O POSITIVE Antibody Screen Crossmatch 02/15/19 02/15/19 02/15/19 17:02 17:56 18:53 WBC RBC Hgb Hct MCV MCH MCHC RDW Std Deviation Plt Count MPV Immature Gran % (Auto) Neut % (Auto) Lymph % (Auto) Gates % (Auto) Eos % (Auto) Baso % (Auto) Immature Gran # (Auto) Neut # (Auto) Lymph # (Auto) Gates # (Auto) Eos # (Auto) Baso # (Auto) PTT (Actin FS) Sodium Potassium Chloride Carbon Dioxide Anion Gap BUN Creatinine Estimated GFR/1.73 m2 BUN/Creatinine Ratio Glucose POC Glucose 120 H 106 H 98 Calculated Osmolality Calcium Phosphorus Magnesium Creatine Kinase Albumin Acetone Level Blood Type Blood Type Confirm Antibody Screen Crossmatch 02/15/19 02/15/19 02/15/19 20:00 21:22 21:28 WBC RBC Hgb Hct MCV MCH MCHC RDW Std Deviation Plt Count MPV Immature Gran % (Auto) Neut % (Auto) Lymph % (Auto) Gates % (Auto) Eos % (Auto) Baso % (Auto) Immature Gran # (Auto) Neut # (Auto) Lymph # (Auto) Gates # (Auto) Eos # (Auto) Baso # (Auto) PTT (Actin FS) Sodium 141 Potassium 4.8 Chloride 106 Carbon Dioxide 21 L Anion Gap 14 BUN 23 H Creatinine 3.8 H Estimated GFR/1.73 m2 16 BUN/Creatinine Ratio 6 Glucose 115 H POC Glucose 100 108 H Calculated Osmolality 286 Calcium 8.0 L Phosphorus Magnesium 2.2 Creatine Kinase Albumin Acetone Level Blood Type Blood Type Confirm Antibody Screen Crossmatch 02/15/19 02/15/19 02/15/19 21:28 21:28 22:15 WBC RBC Hgb Hct MCV MCH MCHC RDW Std Deviation Plt Count MPV Immature Gran % (Auto) Neut % (Auto) Lymph % (Auto) Gates % (Auto) Eos % (Auto) Baso % (Auto) Immature Gran # (Auto) Neut # (Auto) Lymph # (Auto) Gates # (Auto) Eos # (Auto) Baso # (Auto) PTT (Actin FS) Sodium Potassium Chloride Carbon Dioxide Anion Gap BUN Creatinine Estimated GFR/1.73 m2 BUN/Creatinine Ratio Glucose POC Glucose 104 Calculated Osmolality Calcium Phosphorus 3.0 Magnesium Creatine Kinase 30 Albumin Acetone Level Blood Type Blood Type Confirm Antibody Screen Crossmatch 02/15/19 02/16/19 02/16/19 23:11 00:15 01:12 WBC RBC Hgb Hct MCV MCH MCHC RDW Std Deviation Plt Count MPV Immature Gran % (Auto) Neut % (Auto) Lymph % (Auto) Gates % (Auto) Eos % (Auto) Baso % (Auto) Immature Gran # (Auto) Neut # (Auto) Lymph # (Auto) Gates # (Auto) Eos # (Auto) Baso # (Auto) PTT (Actin FS) Sodium Potassium Chloride Carbon Dioxide Anion Gap BUN Creatinine Estimated GFR/1.73 m2 BUN/Creatinine Ratio Glucose POC Glucose 140 H 127 H 139 H Calculated Osmolality Calcium Phosphorus Magnesium Creatine Kinase Albumin Acetone Level Blood Type Blood Type Confirm Antibody Screen Crossmatch 02/16/19 02/16/19 02/16/19 01:20 01:20 03:14 WBC RBC Hgb Hct MCV MCH MCHC RDW Std Deviation Plt Count MPV Immature Gran % (Auto) Neut % (Auto) Lymph % (Auto) Gates % (Auto) Eos % (Auto) Baso % (Auto) Immature Gran # (Auto) Neut # (Auto) Lymph # (Auto) Gates # (Auto) Eos # (Auto) Baso # (Auto) PTT (Actin FS) Sodium 141 Potassium 5.3 H Chloride 106 Carbon Dioxide 20 L Anion Gap 15 BUN 24 H Creatinine 4.0 H Estimated GFR/1.73 m2 15 BUN/Creatinine Ratio 6 Glucose 144 H POC Glucose 168 H Calculated Osmolality 288 Calcium 7.5 L Phosphorus 3.1 Magnesium 2.1 Creatine Kinase Albumin Acetone Level Blood Type Blood Type Confirm Antibody Screen Crossmatch 02/16/19 02/16/19 02/16/19 04:05 04:48 05:00 WBC RBC Hgb Hct MCV MCH MCHC RDW Std Deviation Plt Count MPV Immature Gran % (Auto) Neut % (Auto) Lymph % (Auto) Gates % (Auto) Eos % (Auto) Baso % (Auto) Immature Gran # (Auto) Neut # (Auto) Lymph # (Auto) Gates # (Auto) Eos # (Auto) Baso # (Auto) PTT (Actin FS) Sodium 140 Potassium 5.6 H Chloride 105 Carbon Dioxide 19 L Anion Gap 16 BUN 26 H Creatinine 4.4 H Estimated GFR/1.73 m2 13 BUN/Creatinine Ratio 6 Glucose 193 H POC Glucose 175 H 189 H Calculated Osmolality 289 Calcium 7.5 L Phosphorus 3.2 Magnesium 2.1 Creatine Kinase Albumin Acetone Level Blood Type Blood Type Confirm Antibody Screen Crossmatch 02/16/19 02/16/19 02/16/19 05:00 05:00 05:46 WBC 11.46 H RBC 2.75 L Hgb 7.5 L Hct 24.4 L MCV 88.7 MCH 27.3 MCHC 30.7 L RDW Std Deviation 13.7 Plt Count 218 MPV 10.5 H Immature Gran % (Auto) 0.4 Neut % (Auto) 75.7 H Lymph % (Auto) 15.8 L Gates % (Auto) 7.3 Eos % (Auto) 0.5 Baso % (Auto) 0.3 Immature Gran # (Auto) 0.05 H Neut # (Auto) 8.67 H Lymph # (Auto) 1.81 Gates # (Auto) 0.84 H Eos # (Auto) 0.06 Baso # (Auto) 0.03 PTT (Actin FS) Sodium Potassium Chloride Carbon Dioxide Anion Gap BUN Creatinine Estimated GFR/1.73 m2 BUN/Creatinine Ratio Glucose POC Glucose 201 H Calculated Osmolality Calcium Phosphorus Magnesium Creatine Kinase Albumin 2.1 L Acetone Level Blood Type Blood Type Confirm Antibody Screen Crossmatch 02/16/19 02/16/19 02/16/19 06:29 07:13 08:10 WBC RBC Hgb Hct MCV MCH MCHC RDW Std Deviation Plt Count MPV Immature Gran % (Auto) Neut % (Auto) Lymph % (Auto) Gates % (Auto) Eos % (Auto) Baso % (Auto) Immature Gran # (Auto) Neut # (Auto) Lymph # (Auto) Gates # (Auto) Eos # (Auto) Baso # (Auto) PTT (Actin FS) Cancelled Sodium 141 Potassium 5.2 H Chloride 102 Carbon Dioxide 7 L Anion Gap 32 BUN 28 H Creatinine 4.6 H Estimated GFR/1.73 m2 13 BUN/Creatinine Ratio 6 Glucose 406 H* D POC Glucose 285 H Calculated Osmolality 304 Calcium 8.1 L Phosphorus Magnesium Creatine Kinase Albumin Acetone Level Blood Type Blood Type Confirm Antibody Screen Crossmatch 02/16/19 02/16/19 02/16/19 08:10 08:10 08:10 WBC RBC Hgb Hct MCV MCH MCHC RDW Std Deviation Plt Count MPV Immature Gran % (Auto) Neut % (Auto) Lymph % (Auto) Gates % (Auto) Eos % (Auto) Baso % (Auto) Immature Gran # (Auto) Neut # (Auto) Lymph # (Auto) Gates # (Auto) Eos # (Auto) Baso # (Auto) PTT (Actin FS) 27.7 Sodium Potassium Chloride Carbon Dioxide Anion Gap BUN Creatinine Estimated GFR/1.73 m2 BUN/Creatinine Ratio Glucose POC Glucose Calculated Osmolality Calcium Phosphorus 4.7 H Magnesium 2.1 Creatine Kinase Albumin Acetone Level Blood Type O POSITIVE Blood Type Confirm Antibody Screen NEGATIVE Crossmatch See Detail 02/16/19 02/16/19 02/16/19 08:10 08:17 09:08 WBC RBC Hgb Hct MCV MCH MCHC RDW Std Deviation Plt Count MPV Immature Gran % (Auto) Neut % (Auto) Lymph % (Auto) Gates % (Auto) Eos % (Auto) Baso % (Auto) Immature Gran # (Auto) Neut # (Auto) Lymph # (Auto) Gates # (Auto) Eos # (Auto) Baso # (Auto) PTT (Actin FS) Sodium Potassium Chloride Carbon Dioxide Anion Gap BUN Creatinine Estimated GFR/1.73 m2 BUN/Creatinine Ratio Glucose POC Glucose 335 H 334 H Calculated Osmolality Calcium Phosphorus Magnesium Creatine Kinase Albumin Acetone Level MODERATE A Blood Type Blood Type Confirm Antibody Screen Crossmatch 02/16/19 02/16/19 02/16/19 10:00 11:14 12:01 WBC RBC Hgb Hct MCV MCH MCHC RDW Std Deviation Plt Count MPV Immature Gran % (Auto) Neut % (Auto) Lymph % (Auto) Gates % (Auto) Eos % (Auto) Baso % (Auto) Immature Gran # (Auto) Neut # (Auto) Lymph # (Auto) Gates # (Auto) Eos # (Auto) Baso # (Auto) PTT (Actin FS) Sodium Potassium Chloride Carbon Dioxide Anion Gap BUN Creatinine Estimated GFR/1.73 m2 BUN/Creatinine Ratio Glucose POC Glucose 310 H 249 H 315 H Calculated Osmolality Calcium Phosphorus Magnesium Creatine Kinase Albumin Acetone Level Blood Type Blood Type Confirm Antibody Screen Crossmatch 02/16/19 02/16/19 02/16/19 12:49 13:11 13:31 WBC RBC Hgb Hct MCV MCH MCHC RDW Std Deviation Plt Count MPV Immature Gran % (Auto) Neut % (Auto) Lymph % (Auto) Gates % (Auto) Eos % (Auto) Baso % (Auto) Immature Gran # (Auto) Neut # (Auto) Lymph # (Auto) Gates # (Auto) Eos # (Auto) Baso # (Auto) PTT (Actin FS) Sodium 141 Potassium 4.8 Chloride 102 Carbon Dioxide 17 L Anion Gap 22 BUN 11 D Creatinine 2.2 H Estimated GFR/1.73 m2 30 BUN/Creatinine Ratio 5 Glucose 214 H POC Glucose 261 H Calculated Osmolality 287 Calcium 8.9 Phosphorus 1.7 L Magnesium 1.8 Creatine Kinase Albumin Acetone Level Blood Type Blood Type Confirm Antibody Screen Crossmatch 02/16/19 13:31 WBC RBC Hgb 8.1 L Hct 25.8 L MCV MCH MCHC RDW Std Deviation Plt Count MPV Immature Gran % (Auto) Neut % (Auto) Lymph % (Auto) Gates % (Auto) Eos % (Auto) Baso % (Auto) Immature Gran # (Auto) Neut # (Auto) Lymph # (Auto) Gates # (Auto) Eos # (Auto) Baso # (Auto) PTT (Actin FS) Sodium Potassium Chloride Carbon Dioxide Anion Gap BUN Creatinine Estimated GFR/1.73 m2 BUN/Creatinine Ratio Glucose POC Glucose Calculated Osmolality Calcium Phosphorus Magnesium Creatine Kinase Albumin Acetone Level Blood Type Blood Type Confirm Antibody Screen Crossmatch Dr. Berg evaluated and additional note below. Evaluation time in minutes: 34 minutes. Assessment: Acute respiratory failure. Improved. Septic shock. Improved. Uncontrolled DM with DKA. CKD stage 5D. On hemodialysis. Possible RML and RLL pneumonia with possible right basilar trace effusion. Improving. Recent cholecystitis with N/V and abdominal pain. Plan: Continue current treatment and supportive care per admitting and other teams on the case. Antibiotics. Encourage incentive spirometer, deep breathing, and cough. CT abd/pelvis w/o contrast. Input was appreciated from Admitting MD and other teams on the case. See additional notes by Dr. Berg.
[2019-02-16 14:01] LABS: HEMATOCRIT 25.8 % (42.0-52.0); HEMOGLOBIN 8.1 g/dL (14.0-18.0)
[2019-02-16 14:57] LABS: MAGNESIUM 1.8 mg/dL (1.5-2.7); PHOSPHORUS 1.7 mg/dL (2.7-4.5)
[2019-02-16 15:06] LABS: CALCIUM 8.9 mg/dL (8.8-10.2); CREATININE 2.2 mg/dL (0.7-1.2); POTASSIUM 4.8 mmol/L (3.5-5.1)
--- NOTE | 2019-02-16 15:29 | NEPHROLOGY PROGRESS NOTE ---
DATE: 02/16/2019 TIME SEEN: 0650. SUBJECTIVE: Mr. Broussard is sitting up in bed. He has been dry heaving most of the night. He has been receiving Zofran 4 mg q. 4 hours without improvement. His anion gap is elevated now up to 16 from below 12 yesterday morning. He has been transferred to the ICU in the last 36 hours, started on insulin drip, now currently receiving D5W at 50 mL an hour per the hospitalist EXPLOSIVE OPERATOR. OBJECTIVE: Vital Signs: Temperature 97.1 degrees, blood pressure 85/74, heart rate is 119, respirations are 26. He is on room air, last recorded saturation 98%. He has had 2474 in. He has had 0 recorded out to void or to his Alan catheter. LABS: Sodium is 140, potassium 5.6, chloride 105, CO2 19, BUN 26, creatinine 4.4, glucose 193, anion gap 16, calcium 7.5, phosphorus 3.2. White count 11.46, hemoglobin 7.5, hematocrit 24.4 with a platelet count of 218,000. PHYSICAL EXAMINATION: General: This is a 69-year-old white male who appears ill secondary to nausea, vomiting, and dry heaving during the night. Skin: Warm and dry, pale. HEENT: Normocephalic, atraumatic. Conjunctiva is pale pink. He has EAST[place]. Mucous membranes are dry. Neck: Supple. Trachea midline. He has positive JVD today. Cardiovascular: Regular rate and rhythm. He has a systolic murmur. He has no gallop. Lungs: Clear to auscultation bilaterally. Equal excursion on the anterior. Otherwise he has an expiratory wheeze to the right upper lobe posterior. He is currently on room air. Abdomen: Tender to the right lower quadrant, nondistended. Hypoactive bowel sounds. Genitourinary: Not inspected. Alan catheter is in place. Extremities: He continues to have generalized edema. 1+ present. Also edema to the hands. Integumentary: No rashes or lesions evident. Neurological: He is alert to person, place and time. ASSESSMENT AND PLAN: 1. Acute kidney injury, more likely acute tubular necrosis secondary to his septic shock with pneumonia and DKA. He is requiring dialysis today. We will place him on sled 3K bath for 8 hours. We will attempt to pull 5 to 6 L of ultrafiltration if tolerated. 2. Electrolytes, with acid-base balance. Patient's anion gap has been elevated. He is currently on insulin with IV fluids and plan for dialysis with assistance. 3. Anemia. Patient's hemoglobin remains low at 7.5. No indications for intervention. 4. DKA. This is currently being followed by the primary care team. He is currently on insulin drip with D5W at 50 mL an hour following DKA protocol. We will check an acetone this a.m. and in the a.m. 5. Tachycardia with increased work of breathing. We will check a chest x-ray this a.m. which showed stable chest. 6. I would like to thank you for allowing us to follow with this patient. Dictated by BRANDON Tejada for Stefano Jones MD Face to face encounter, data reviewed, discussed with Chase Skinner on 02/16/19. I agree with the above assessment and plan of care. cc: BRANDON Tejada MD [facility]
--- NOTE | 2019-02-16 15:31 | Diag Imaging Result Doc PS360 ---
EXAM: US ABDOMEN-COMPLETE 02/16/2019 HISTORY: R/O cholecystitis TECHNIQUE: Abdominal ultrasound COMMENT: The study is suboptimal due to the patient's body habitus. There are portions of the liver which are not well demonstrated. There is antegrade flow in the portal vein. There is apparent sediment in the gallbladder. The gallbladder wall is thickened. There is apparent para cholecystic fluid. The kidneys are grossly normal in appearance without evidence of hydronephrosis or mass. There are apparent stones in the mid and upper pole of the left kidney. The spleen is not enlarged. The pancreas is obscured. IMPRESSION: The possibility of acute cholecystitis cannot be excluded. Electronically signed by Kvng Lizama 02/16/2019 3:29 PM
[2019-02-16] MEDS ORDERED: SODIUM CHLORIDE 0.9% INJ ONE (15:53)
[2019-02-16] MEDS ORDERED: PHENERGAN IV ONE (15:53)
[2019-02-16 17:35] LABS: HEMATOCRIT 25.3 % (42.0-52.0); HEMOGLOBIN 7.9 g/dL (14.0-18.0)
[2019-02-16 17:45] LABS: CALCIUM 8.2 mg/dL (8.8-10.2); CREATININE 1.7 mg/dL (0.7-1.2); POTASSIUM 4.7 mmol/L (3.5-5.1)
[2019-02-16] MEDS: VANCOMYCIN 500 MG/NS 500 MG/100 ML IVPB IV SCH (18:00)
[2019-02-16 18:09] LABS: MAGNESIUM 1.6 mg/dL (1.5-2.7); PHOSPHORUS 1.1 mg/dL (2.7-4.5)
--- NOTE | 2019-02-16 18:31 | Diag Imaging Result Doc PS360 ---
EXAM: CT ABD/PELVIS W/IV CONT ONLY 02/16/2019 HISTORY: Vomiting TECHNIQUE: This exam was performed using automated exposure control, adjustment of mA or kV according to patient size, and/or use of iterative reconstruction technique. COMMENT: There are bilateral pleural effusions which were not present on 05/30/2016. There is atelectasis or pneumonia in the right lower lobe. Some compressive atelectasis is also present in the left lower lobe. There is apparent anasarca. There is a cyst in the left hepatic lobe which was also present previously. There is also a lucency posteriorly in the right lower lobe which was previously present. The gallbladder is distended and there is some pericholecystic fluid. There are no apparent stones. There is a fluid collection which appears to be subcapsular in location over the inferior tip of the right hepatic lobe which was not present previously. This measures at least 6.3 cm in greatest dimension. The aorta is normal in caliber. The mesenteric and renal arteries are patent. There are multiple calculi in both kidneys. The largest calculus in the right kidney measures over 7 mm. The pancreas is largely atrophic. The adrenal glands are not enlarged. There is no evidence of bowel obstruction. The appendix is normal in appearance. Pelvis: The urinary bladder is thickened and irregular in appearance with stranding in the fat surrounding it. The possibility of cystitis is suggested. There was a similar appearance on the previous study. There is some arteriosclerosis. There is no evidence of acute bony abnormality. IMPRESSION: 1. Anasarca and pleural effusions. 2. The possibility of cholecystitis cannot be excluded. 3. Subcapsular fluid collection in the inferior liver which may be a hematoma. 4. Bilateral nephrolithiasis without evidence of obstructive uropathy. Chronic cystitis. Electronically signed by Kvng Lizama 02/16/2019 6:29 PM
[2019-02-16] MEDS: D50W SYRINGE IV PRN (19:10)
[2019-02-16 21:16] LABS: HEMATOCRIT 23.2 % (42.0-52.0); HEMOGLOBIN 7.2 g/dL (14.0-18.0)
[2019-02-16 21:33] LABS: MAGNESIUM 1.6 mg/dL (1.5-2.7); PHOSPHORUS 1.3 mg/dL (2.7-4.5)
[2019-02-16 21:36] LABS: CREATININE 1.9 mg/dL (0.7-1.2); POTASSIUM 4.5 mmol/L (3.5-5.1)
[2019-02-16] MEDS: MAGNESIUM SULFATE 2 GM/S.W.I. 2 GM/50 ML IVPB IV PRN (23:40)
[2019-02-17 01:33] LABS: HEMATOCRIT 24.3 % (42.0-52.0); HEMOGLOBIN 7.5 g/dL (14.0-18.0)
[2019-02-17 01:49] LABS: MAGNESIUM 2.1 mg/dL (1.5-2.7); PHOSPHORUS 1.8 mg/dL (2.7-4.5)
[2019-02-17 01:56] LABS: CREATININE 2.3 mg/dL (0.7-1.2); POTASSIUM 4.9 mmol/L (3.5-5.1)
[2019-02-17 02:18] LABS: CALCIUM 8.2 mg/dL (8.8-10.2)
[2019-02-17] MEDS: PROTONIX IV SCH ×2 (02:53→14:04)
[2019-02-17] MEDS: D5W 1,000 ML IV SCH ×2 (02:54→23:24)
[2019-02-17] MEDS ORDERED: NS 50 ML ONE (03:06)
[2019-02-17] MEDS: ZOSYN 2.25 GM in NS 50 ML IV SCH ×3 (03:12→17:04)
[2019-02-17] MEDS: HUMULIN R 100 UNIT in NS 100 ML IV SCH (03:13)
[2019-02-17 05:05] LABS: BASO# 0.02 X1000 (0.0-0.2); BASO% 0.2 % (0.0-0.8); EOS# 0.04 X1000 (0.0-0.7); EOS% 0.3 % (0.0-10.0); HEMOGLOBIN 7.5 g/dL (14.0-18.0); IMM GRAN# 0.05 X1000 (0.0-0.04); IMM GRAN% 0.4 % (0.0-0.5); LYMPH# 1.74 X1000 (1.2-3.4); LYMPH% 13.9 % (20.5-51.1); MCH 27.3 PG (27-31); MCHC 31.3 g/dL (33-37); MCV 87.3 FL (81-99); MONO# 0.85 X1000 (0.11-0.59); MONO% 6.8 % (1.7-9.3); NEUT# 9.83 X1000 (1.4-6.5); NEUT% 78.4 % (42.2-75.2); PLT 211 X1000 (130-400); RBC 2.75 XMIL (4.7-6.1); RDW 14.3 % (11.5-14.5); WBC 12.53 X1000 (4.8-10.8)
[2019-02-17 05:18] LABS: MAGNESIUM 2.1 mg/dL (1.5-2.7); PHOSPHORUS 1.8 mg/dL (2.7-4.5)
[2019-02-17 05:21] LABS: CREATININE 2.6 mg/dL (0.7-1.2); POTASSIUM 4.8 mmol/L (3.5-5.1)
--- NOTE | 2019-02-17 07:13 | Diag Imaging Result Doc PS360 ---
EXAM: CHEST-1 VIEW 02/17/2019 HISTORY: SOB TECHNIQUE: AP portable at 0516 COMMENT: There is a right internal jugular double-lumen catheter with its tip in the superior vena cava. There is atelectasis and/or pneumonia in the right lower lobe as are has been on the previous studies. Compared to 02/16/2019 the lungs are slightly better expanded. There is some suggestion of interstitial pulmonary edema and there is a small amount of fluid in the minor fissure on the right. IMPRESSION: Atelectasis versus pneumonia right lower lobe. Mild pulmonary edema. Electronically signed by Kvng Lizama 02/17/2019 7:10 AM
[2019-02-17] MEDS ORDERED: SENSORCAINE-MPF 0.5%/EPI 1:200,000 ONE (08:36)
[2019-02-17] MEDS ORDERED: SODIUM CHLORIDE 0.9% ONE (08:36)
[2019-02-17] MEDS ORDERED: LR 1,000 ML ONE (08:36)
[2019-02-17] MEDS ORDERED: BRIDION ONE (08:48)
[2019-02-17] MEDS ORDERED: ALBUMIN 25% ONE (08:49)
[2019-02-17] MEDS ORDERED: ROBINUL ONE (08:51)
[2019-02-17] MEDS ORDERED: QUELICIN (DOSE) ONE (08:51)
[2019-02-17] MEDS ORDERED: XYLOCAINE-MPF 2% ONE (08:51)
[2019-02-17] MEDS ORDERED: DIPRIVAN 1% ONE (08:51)
[2019-02-17 09:03] LABS: INR 1.22; PROTIME 15.6 Seconds (11.0-16.0)
[2019-02-17 09:04] LABS: PTT 32.5 Seconds (22.3-41.8)
[2019-02-17 09:12] LABS: ALB/GLOB RATIO 1.1; ALBUMIN 2.7 g/dL (3.5-5.0); DIRECT BILIRUBIN 0.2 mg/dL (0.00-0.20); TOTAL BILIRUBIN 0.42 mg/dL (0.20-1.00); TOTAL PROTEIN 5.1 g/dL (6.3-8.3)
[2019-02-17 09:13] LABS: CALCIUM 8.1 mg/dL (8.8-10.2); CREATININE 2.8 mg/dL (0.7-1.2); POTASSIUM 4.7 mmol/L (3.5-5.1)
[2019-02-17] MEDS ORDERED: OFIRMEV 1000 MG/ISOTONIC SOLN 1,000 MG/100 ML BOTTLE ONE (09:25)
[2019-02-17] MEDS ORDERED: ZEMURON ONE (09:29)
[2019-02-17] MEDS ORDERED: ZOFRAN ONE (09:30)
--- NOTE | 2019-02-17 09:31 | PROGRESS NOTE ---
DATE: 02/17/2019 SUBJECTIVE: This patient is still in the ICU. He is still having nausea, vomiting, and diarrhea, pending stool collection to rule out C. diff. We have consulted Surgery Department to evaluate this patient to rule out cholecystitis which it is possible based on the CT scan results and the abdominal ultrasound result. He has positive blood in the stool. He was transfused with 1 unit of blood yesterday, but the hemoglobin is about the same today 7.5. I will recheck the hemoglobin in the afternoon. OBJECTIVE: Vital Signs: Temperature 98.7 degrees, pulse 94, respiratory rate 16, blood pressure 145/74, oxygen saturation 95% on room air. HEENT: Head normocephalic. No trauma. PERRLA. Neck: Supple. No JVD. No masses. Central trachea. Chest: Clear to auscultation. Some crepitus at the bases. Abdomen: Soft. Mild generalized tenderness to palpation mostly at the level of the periumbilical area. Extremities: Trace lower extremity edema, 1+ upper extremity edema. No clubbing. No cyanosis. Neurological: The patient is awake. He is alert. He seems to be more oriented today compared with yesterday. LABORATORY: WBC 12.5, hemoglobin 7.5, hematocrit 24, platelet 211,000. Sodium 137, potassium 4.8, chloride 103, bicarbonate 18, BUN 11, creatinine 2.6, glucose 202, calcium 8, phosphorus 1.8, and magnesium 2.1. ASSESSMENT AND PLAN: 1. Septic shock due to right lower lobe pneumonia. We put this patient back on pressors yesterday during the day while he was basically receiving dialysis. He is not on pressors anymore. We will continue with antibiotics. 2. Nausea, vomiting, and diarrhea. There is also a possibility of cholecystitis. We will continue with the same management. I have requested an evaluation by Surgery Department. We will monitor. 3. Encephalopathy, probably related to medications and sepsis. This seems to be better today. We will continue with same treatment. 4. Dehydration, better. 5. End-stage renal disease. Continue with dialysis as scheduled. 6. Elevated troponin. I do not think it is cardiac related. Cardiology Department already evaluated this patient and following this patient closely. 7. DKA, he is still in DKA. Continue with the protocol. I have requested to not replace electrolytes, just to let us know. He is an end-stage renal disease patient. 8. Redundant foreskin and paraphimosis, already evaluated by Urology Department. I think he is better. 9. Anemia, with positive blood in the stool. He has been placed on PPIs twice a day. We will monitor for now. I will request a new hemoglobin and hematocrit this afternoon. CRITICAL CARE TIME: 35 minutes. cc: Syd Rodriges MD
--- NOTE | 2019-02-17 10:38 | Diag Imaging Result Doc PS360 ---
EXAM: OPERATIVE CHOLANGIOGRAM 02/17/2019 HISTORY: GALLBLADDER DX TECHNIQUE: Intraoperative cholangiogram COMMENT: There is no evidence of filling defect or obstruction in the common hepatic or common bile ducts. There is reflux into the distal pancreatic duct which was also apparently clear. IMPRESSION: No evidence retained stones or obstruction. Electronically signed by Kvng Lizama 02/17/2019 10:35 AM
[2019-02-17] MEDS ORDERED: DILAUDID ONE (11:39)
[2019-02-17 13:57] LABS: CREATININE 2.8 mg/dL (0.7-1.2); POTASSIUM 4.7 mmol/L (3.5-5.1)
[2019-02-17] MEDS: MORPHINE IV PRN ×3 (14:04→21:03)
[2019-02-17 14:20] LABS: PHOSPHORUS 2.6 mg/dL (2.7-4.5)
--- NOTE | 2019-02-17 15:11 | CONSULTATION ---
DATE OF CONSULTATION: 02/17/2019 HISTORY OF PRESENT ILLNESS: Mr. Lars Broussard is a 69-year-old, white male hospitalized in our ICU. He has been admitted through our emergency department since 02/11/2019. He was recently hospitalized at [facility] and was discharged. Within 24 hours, he was hospitalized through our emergency department with hypotension. He has been hospitalized in our ICU since his admission. He is getting hemodialysis under the direction of Dr. Jones. There has also been consultations with Urology and Cardiology. Most recently, he has undergone an abdominal ultrasound 02/16/[address] scan of his abdomen and pelvis with suggested sludge in the gallbladder with some fluid around the gallbladder, and there was a question whether acute cholecystitis could be a cause for his sepsis. He also was being treated for right-sided pneumonia. We were asked to evaluate the patient. There has been no recent liver function tests. PAST MEDICAL HISTORY: Diabetes type 2, end-stage renal disease requiring hemodialysis, hypertension. PAST SURGICAL HISTORY: Left ureter stent placement, kidney stones. FAMILY HISTORY: Family history was reviewed and was noncontributory. SOCIAL HISTORY: His was at the bedside. He does not smoke or abuse alcohol. ALLERGIES: No known drug allergies. MEDICATION: Include insulin, Protonix, and now he is on antibiotics. REVIEW OF SYSTEMS: Recently, he has had problems with nausea and also diarrhea. A 14 point review of systems was obtained. PHYSICAL EXAMINATION: General: Mr. Broussard is in the ICU. He seems to be resting comfortably. He is awake and cooperative. Vital Signs: Hemodynamically, he is satisfactory. His heart rate is 94, blood pressure 150/70, O2 saturation 94%. HEENT: He has no work of breathing. He has no evidence of jaundice. No oral lesions. Neck: No cervical or supraclavicular lymphadenopathy. Cardiovascular: His heart has a regular rate. Lungs: Clear. Abdomen: Soft. It did not appear to be very tender in the right upper quadrant. I could feel no mass. He has had no previous incisions on his abdomen. No evidence of hernia. No costovertebral tenderness. Rectal Exam: Was not performed. Extremities: He does have palpable femoral pulses bilaterally. He has no ischemic changes of his lower extremities. He has mild edema. Neurological: No focal deficit. His white blood cell count has increased recently from 11 to 12. He is anemic at 24%. He was dialyzed yesterday. BUN and creatinine 11 and 2.6. He has not had recent coagulation studies or liver function tests. IMAGING: I reviewed his CT scan and ultrasound with our radiologist. There appears to be sludge in the gallbladder and some fluid around the gallbladder. PLAN: We will obtain liver function tests, coagulation studies, and type and screen, and we will plan to proceed with laparoscopic possible open cholecystectomy. I discussed the risks with him at the bedside. He understands that he is at increased risk for surgery because of his acute illness and dialysis. We specifically discussed risks of bleeding, infection, injury to the extrahepatic bile ducts requiring reoperation, conversion of laparoscopic to open cholecystectomy, bile leak requiring reoperation for drainage, conversion of laparoscopic to open cholecystectomy, injury to intra-abdominal contents with trocar placement. I discussed these risks with both the patient and his at the bedside, and they want to proceed. cc: Shira Messina MD
[2019-02-17] MEDS ORDERED: SODIUM BICARBONATE 8.4% 150 MEQ in STERILE WATER INJ. 1,000 ML IV SCH (15:45)
--- NOTE | 2019-02-17 16:54 | NEPHROLOGY PROGRESS NOTE ---
DATE: 02/17/2019 SUBJECTIVE: He has less nausea and vomiting today. Some urine output today. He had nausea and vomiting overnight. OBJECTIVE: Vital Signs: Blood pressure 155/78, heart rate 93, respirations 20, afebrile. General: In no acute distress. Skin: Warm and dry. Neck: Neck veins are not distended. Heart: Regular. Lungs: Equal. No crackles. Abdomen: Soft, nontender. Bowel sounds are present. Extremities: 1+ edema. No clubbing or cyanosis. IMPRESSION: Acute kidney injury. He does have a little more urine output. Labs are well managed. We will hold treatment today. cc: Stefano Jones MD
[2019-02-17 17:01] LABS: HEMATOCRIT 26.5 % (42.0-52.0); HEMOGLOBIN 8.4 g/dL (14.0-18.0)
--- NOTE | 2019-02-17 17:20 | OPERATIVE NOTE ---
PROCEDURE DATE: 02/17/2019 PREOPERATIVE DIAGNOSIS: Acute cholecystitis. POSTOPERATIVE DIAGNOSIS: Acute gangrenous cholecystitis. PRINCIPAL PROCEDURE: Laparoscopic cholecystectomy with intraoperative cholangiogram. SURGEON: Shira Messina MD. ANESTHESIA: General in addition to local anesthetic. ESTIMATED BLOOD LOSS: 100 mL. DRAINS: #10 flat Brent-Almanzar drain along the inferior aspect of the right lobe of the liver and the gallbladder fossa. INDICATIONS: Mr. Lars Broussard is a 69-year-old white male with diabetes. He is also requiring hemodialysis. He was admitted several days ago hypotensive in sepsis. Recently underwent an abdominal ultrasound and CT scan of his abdomen and pelvis, which suggested possible acute cholecystitis, and we decided to proceed with cholecystectomy. He got dialyzed yesterday. FINDINGS: The greater omentum had walled off the gallbladder. The gallbladder was acutely inflamed and becoming gangrenous. The duodenum was tightly adhered to the underside of the gallbladder at the triangle of Calot. We were able to dissect out the triangle of Calot, do a cholangiogram and remove the gallbladder laparoscopically. The liver appeared to be healthy. No other intra-abdominal pathology was noted. The cholangiogram showed free flow of the dye into the duodenum without evidence of extrahepatic stones or obstruction. There was no abnormal dilatation of the extrahepatic bile ducts. DESCRIPTION OF PROCEDURE: The patient was brought to the operating room, placed supine, received general anesthesia and was intubated. The abdomen was prepped and draped within the sterile field. We did not use a Alan catheter tube. He was already on IV antibiotics. We made a curvilinear incision below the umbilicus using a 15 blade scalpel. Veress needle was introduced through this incision into the abdomen. Pneumoperitoneum was established. The Veress needle was removed, and we placed an 11 mm trocar through this incision into the abdomen. The camera was placed through this port, and the abdomen was explored for injury, and there was none. Three other trocars were placed along the right costal margin under direct vision of the camera. We placed an 11 mm trocar just to the right of the midline and two 5 mm trocars in our midclavicular and anterior axillary lines. Through our most lateral port, we had to take the omentum that was tightly adhered off the gallbladder with blunt dissection and also spatula cautery. We had to bluntly take down the duodenum off the underside of the gallbladder. We decompressed the gallbladder with a needle and suction. We used a grasper with teeth to grab the fundus of the gallbladder and retracted superiorly along with the right lobe of the liver. The dissection of the triangle of Calot was difficult because of all the inflammation, but we identified the cystic duct along its length. We got enough length of the cystic duct to place the clip distally and make a small incision in it using hook scissors and placed a taut catheter and perform an intraoperative cholangiogram with the findings above. Two clips were placed proximally on the cystic duct, and we divided the cystic duct between clips using hook scissors. The cystic artery was identified. A clip was placed distally, 2 proximally and it was divided using hook scissors. The spatula cautery was used to remove the gallbladder from the liver bed. There was gangrene abscess behind the gallbladder wall between the gallbladder and liver. There was also an abscess on the lateral aspect of the right lobe of the liver, which we unroofed and removed the purulence and necrotic tissue. We removed the gallbladder through our umbilical incision with an Endo bag. We took time to thoroughly irrigate out the area of operation and removed this irrigation with suction. We did not recognize any bile leak. There was no significant bleeding, although the gallbladder fossa was raw. We decided to leave the KHADIJAH drain. I placed a KHADIJAH drain through our 11 mm port site superiorly and brought it out through our most lateral 5 mm port placing the drain along the inferior aspect of the right lobe of the liver and the gallbladder fossa. It was secured to the skin with a 2-0 nylon stitch. It was hooked to bulb suction. All trocars removed under direct vision of the camera. It must be noted we placed an extra 11 mm trocar left side of abdomen so that we could use a rake for retraction during our dissection of the triangle of Calot. All these trocars were removed. The pneumoperitoneum was allowed to dissipate. I used several [id number] 2-0 Vicryl stitches to reapproximate the fascia at the umbilicus. I used figure- of-eight 2-0 Vicryl stitches to reapproximate the fascia at our other 11 mm port sites. All skin was closed with 4-0 Monocryl subcuticular stitches. Dressings were applied. He tolerated the procedure well. Plans are for him to go to the recovery room, but then he will return to the ICU with his KHADIJAH to bulb suction. cc: Shira Messina MD
[2019-02-17 17:21] LABS: PHOSPHORUS 2.4 mg/dL (2.7-4.5)
[2019-02-17 17:23] LABS: CALCIUM 7.8 mg/dL (8.8-10.2); CREATININE 3.3 mg/dL (0.7-1.2); POTASSIUM 4.9 mmol/L (3.5-5.1)
--- NOTE | 2019-02-17 20:21 | PULMONOLOGY PROGRESS NOTE ---
DATE: 02/17/2019 SUBJECTIVE: The patient is arousable but is recently undergoing a cholecystectomy. He appears to be comfortable on nasal cannula without increased work of breathing. OBJECTIVE: Vital Signs: Maximum temperature in the last 24 hours is 100.0 degrees. Current temperature 98.1 degrees, blood pressure 107/50, heart rate 95, oxygen saturation 100%. HEENT: Pupils are equal and reactive. Oropharynx appears clear. Neck: Supple. Chest: Reveals crackles at the right lung base. Cardiac exam: S1, S2. Abdomen: Soft with no bowel sounds present. Postsurgical dressings in place. Extremities: Reveal trace edema. LABORATORY DATA: White blood count 12.53, hemoglobin 7.5, platelet count 211,000. Sodium 136, potassium 4.7, chloride 102, bicarbonate 14, BUN 14, creatinine 2.8. IMAGING: Chest x-ray reveals right basilar infiltrate. IMPRESSION: 1. Acute hypoxemic respiratory failure. 2. Right lower lobe pneumonia. 3. Acute cholecystitis. 4. End-stage renal disease. 5. Diabetes mellitus. PLAN: 1. Continue oxygen for hypoxemic respiratory failure. 2. Continue incentive spirometry and bronchial hygiene. 3. Continue current antibiotic regimen. 4. Continue glucose management. cc: Sldae Egan MD
[2019-02-17 21:41] LABS: MAGNESIUM 1.9 mg/dL (1.5-2.7); PHOSPHORUS 2.5 mg/dL (2.7-4.5)
[2019-02-17 21:43] LABS: CREATININE 3.3 mg/dL (0.7-1.2); POTASSIUM 4.7 mmol/L (3.5-5.1)
[2019-02-18] MEDS: PROTONIX IV SCH ×2 (00:12→13:50)
[2019-02-18] MEDS: MORPHINE IV PRN ×5 (01:21→21:07)
[2019-02-18] MEDS: ZOSYN 2.25 GM in NS 50 ML IV SCH ×3 (01:22→17:37)
[2019-02-18 02:05] LABS: CALCIUM 7.7 mg/dL (8.8-10.2); CREATININE 3.6 mg/dL (0.7-1.2); POTASSIUM 4.6 mmol/L (3.5-5.1)
[2019-02-18 02:15] LABS: PHOSPHORUS 2.6 mg/dL (2.7-4.5)
[2019-02-18 05:06] LABS: ALLEN TEST YES; BE -3.3 mmoll (-3.0-3.0); BLOOD TYPE ARTERIAL; HCO3-(ACT) 22.2 mmoll (20.0-26.0); METHB 0.7 % (0.0-1.5); O2(CT) 15.7 mL/dL (15.0-23.0); O2HB 92.2 % (95.0-99.0); PCO2(98.6) 40 mmHg (35-45); PO2(98.6) 57 mmHg (60-100); SAMPLE BLOOD; SAO2 93.7 % (95.0-100.0); THB 12.1 g/dL (11.5-17.4); pH(98.6) 7.35 (7.35-7.45)
[2019-02-18 05:08] LABS: MODALITY CANNULA
[2019-02-18 05:52] LABS: PHOSPHORUS 2.7 mg/dL (2.7-4.5)
[2019-02-18] MEDS: TRANSDERM-SCOP TD SCH (06:00)
[2019-02-18 06:03] LABS: BASO# 0.02 X1000 (0.0-0.2); BASO% 0.2 % (0.0-0.8); EOS# 0.17 X1000 (0.0-0.7); EOS% 1.9 % (0.0-10.0); HEMOGLOBIN 8.6 g/dL (14.0-18.0); IMM GRAN# 0.02 X1000 (0.0-0.04); IMM GRAN% 0.2 % (0.0-0.5); LYMPH# 1.33 X1000 (1.2-3.4); MCH 27.7 PG (27-31); MCHC 31.9 g/dL (33-37); MCV 86.8 FL (81-99); MONO# 0.94 X1000 (0.11-0.59); MONO% 10.6 % (1.7-9.3); MPV 10.6 FL (7.4-10.4); NEUT% 72.1 % (42.2-75.2); PLT 155 X1000 (130-400); RBC 3.11 XMIL (4.7-6.1); RDW 14.4 % (11.5-14.5); WBC 8.88 X1000 (4.8-10.8)
[2019-02-18 06:29] LABS: ALB/GLOB RATIO 0.9; ALBUMIN 2.4 g/dL (3.5-5.0); CALCIUM 7.8 mg/dL (8.8-10.2); CREATININE 3.7 mg/dL (0.7-1.2); POTASSIUM 4.8 mmol/L (3.5-5.1); TOTAL BILIRUBIN 0.5 mg/dL (0.20-1.00); TOTAL PROTEIN 5.1 g/dL (6.3-8.3)
--- NOTE | 2019-02-18 08:03 | Diag Imaging Result Doc PS360 ---
EXAM: CHEST-PORTABLE INDICATION: abnormal exam TECHNIQUE: One view COMPARISON: 02/17/2019 FINDINGS: Support tubes and lines are in stable positions. The infiltrate in the right mid and lower lung zone most compatible with pulmonary edema +/- pneumonia is unchanged. No new consolidation is identified. Cardiac silhouette is stable. IMPRESSION: Stable chest. Electronically signed by Magen Wolff 02/18/2019 8:01 AM
[2019-02-18] MEDS ORDERED: NS 2,000 ML MISC PRN (08:31)
[2019-02-18] MEDS ORDERED: NOVOLOG MIX 70/30 SUBQ SCH (08:45)
--- NOTE | 2019-02-18 10:35 | PROGRESS NOTE ---
DATE: 02/18/2019 SUBJECTIVE: The patient seems to be much better today. He is complaining of abdominal pain. He is status post laparoscopic cholecystectomy. His x-ray toe though looks a bit worse for me compared with yesterday. He has some more haziness on the right side that could be related to fluid overload. Hopefully he will be dialyzed today. His DKA has resolved but I will continue with the drip because he is not eating. He is NPO. I have requested the nurse to contact the surgeon to see if this patient is going to be started on a diet. If that is the case, I will stop the drip and I will put him on a insulin drip. I will stop the drip and I will put him on a long- acting insulin. PHYSICAL EXAMINATION: Temperature 98 degrees, pulse 92 respiratory rate 14, blood pressure 121/58 oxygen saturation 98 on 2 L of nasal cannula. HEENT: Head normocephalic, no trauma, PERRLA. Neck is supple, no JVD. No masses. Central trachea. Chest: Some crepitus on the right side with coarse breath sounds mostly on the right. His left side sounds good. Abdomen is soft, a little bit distended but positive bowel sounds. A little bit decreased though. He has a drain with a little bit of serosanguineous material, no evidence of acute bleeding. Extremities: 1+ edema. No clubbing. No cyanosis. Neurological: The patient is sleepy but arousable. He is oriented. He seems to be answering all my questions. No focal deficits. LABORATORY: WBC 8.8, hemoglobin 8.6, hematocrit 27, platelets 155,000. Sodium 137, potassium 4.8, chloride 103, bicarbonate 21, BUN 13, creatinine 3.7, glucose 127, calcium 7.8, albumin 2.4. Acetone level is negative. ASSESSMENT AND PLAN: 1. Septic shock due to right lower lobe pneumonia and also this patient had acute gangrenous cholecystitis status post cholecystectomy. The patient seems to be doing better today. He is complaining of abdominal pain. He is not on pressors, seems to be stable. We will continue with same management. 2. Gangrenous cholecystitis, status post laparoscopic cholecystectomy. A drain is coming out from the abdomen with some serosanguineous material, no signs of acute bleeding. He seems to be doing fine. 3. Nausea vomiting and diarrhea, better. 4. Right lower lobe pneumonia, continue with antibiotics. 5. Encephalopathy, resolved. 6. Dehydration, resolved. 7. End-stage renal disease. Continue with dialysis as scheduled. I do believe he will be dialyzed today. 8. Elevated troponin. I do not think it is cardiac related. 9. Diabetic ketoacidosis. His diabetic ketoacidosis resolved. As soon as this patient is able to tolerate p.o. I will change his insulin drip and I will be and he will be on long-acting insulin. 10. Anemia status post 3 packed red blood cells, stable now. 11. Redundant foreskin and paraphimosis, already evaluated by Urology Department. I think this is better. CRITICAL CARE TIME: 35 minutes. cc: Syd Rodriges MD
[2019-02-18] MEDS: HUMULIN R SUBQ SCH ×3 (10:59→21:09)
[2019-02-18] MEDS ORDERED: INSULIN PEN NEEDLES ONE (11:13)
[2019-02-18] MEDS: SODIUM CHLORIDE 0.9% INJ SCH (13:50)
--- NOTE | 2019-02-18 14:15 | GENERAL SURGERY PROGRESS NOTE ---
DATE: 02/18/2019 SUBJECTIVE: The patient seems to be doing okay. Nursing staff reports no major issues. He has been hemodynamically stable. His KHADIJAH drain has had 120 of serosanguineous output. The patient is without complaints. LABORATORY: This morning reviewed. White blood cell count 8, hematocrit 27. Bilirubin, AST, ALT normal. Alkaline phosphatase is still elevated, but trending down. From a surgical point of view, continue current treatment. We will continue to monitor. We will keep Brent-Almanzar drain in place. cc: Juan Medina MD
[2019-02-18] MEDS: NOVOLOG MIX 70/30 SUBQ SCH (16:06)
[2019-02-18] MEDS: D50W SYRINGE IV PRN (16:53)
[2019-02-18] MEDS: D5W 1,000 ML IV SCH (17:32)
[2019-02-18] MEDS: VANCOMYCIN 500 MG/NS 500 MG/100 ML IVPB IV SCH (18:14)
--- NOTE | 2019-02-18 21:51 | NEPHROLOGY PROGRESS NOTE ---
DATE: 02/18/2019 SUBJECTIVE: He is sore following surgery yesterday. OBJECTIVE: Vital Signs: Blood pressure 144/78, heart rate 88, afebrile. Intake 2.7 L. Output 300 mL. General: No acute distress. Skin: Warm and dry. Neck: Neck veins are not examined. Heart: Regular. Lungs: Equal. Coarse, no crackles. Abdomen: Benign, mildly tender. Extremities: 2+ edema. IMPRESSION: Acute kidney injury. Urine output remains low. SLED today using a 4 K bath for 8 hours, 30 bicarbonate, and a goal of 6 L as tolerated. cc: Stefano Jones MD
--- NOTE | 2019-02-18 22:25 | PULMONOLOGY PROGRESS NOTE ---
DATE: 02/18/2019 SUBJECTIVE: The patient is awake, alert, and conversant. He reports he feels better than yesterday. OBJECTIVE: Vital Signs: The patient has been afebrile for the last 24 hours. Blood pressure 107/57, heart rate 82, respiratory rate 14, oxygen saturation 99% on 3 L per nasal cannula. HEENT: Pupils are equal and reactive. Oropharynx appears clear. Neck: Supple. Chest: Reveals crackles in both lung bases. Cardiac: S1-S2. Abdomen: Soft with mild tenderness. Bowel sounds are diminished. Extremities: Reveal trace edema. LABORATORIES: White blood count 8.88, hemoglobin 8.6, platelet count 155,000. Microbiology reveals no new data. Arterial blood gas reveals a pH 7.35, pCO2 of 40, PO2 of 57. Chest x-ray no change in the right basilar infiltrate. IMPRESSION: A 69-year-old with: 1. Right lower lobe pneumonia. 2. Acute hypoxemic respiratory failure. 3. Acute cholecystitis. 4. End-stage renal disease. 5. Diabetes. PLAN: 1. Continue bronchial hygiene. 2. Continue oxygen for hypoxemic respiratory failure. 3. Continue antibiotic regimen. 4. Dialysis management per Nephrology. 5. Recommend mobilizing patient as soon as possible. cc: Slade Egan MD
[2019-02-19] MEDS: ZOSYN 2.25 GM in NS 50 ML IV SCH ×3 (01:46→17:21)
[2019-02-19] MEDS: PROTONIX IV SCH ×2 (01:46→13:19)
[2019-02-19] MEDS: MORPHINE IV PRN ×6 (01:46→23:17)
[2019-02-19 05:38] LABS: BASO# 0.02 X1000 (0.0-0.2); BASO% 0.3 % (0.0-0.8); EOS% 3.8 % (0.0-10.0); HEMATOCRIT 27.3 % (42.0-52.0); HEMOGLOBIN 8.5 g/dL (14.0-18.0); IMM GRAN# 0.02 X1000 (0.0-0.04); IMM GRAN% 0.3 % (0.0-0.5); LYMPH# 1.17 X1000 (1.2-3.4); MCH 27.5 PG (27-31); MCHC 31.1 g/dL (33-37); MCV 88.3 FL (81-99); MONO# 0.73 X1000 (0.11-0.59); MONO% 9.4 % (1.7-9.3); MPV 10.8 FL (7.4-10.4); NEUT# 5.56 X1000 (1.4-6.5); NEUT% 71.2 % (42.2-75.2); PLT 144 X1000 (130-400); RBC 3.09 XMIL (4.7-6.1); RDW 14.2 % (11.5-14.5)
[2019-02-19] MEDS: HUMULIN R SUBQ SCH ×4 (06:02→21:08)
[2019-02-19] MEDS ORDERED: INSULIN PEN NEEDLES ONE (06:07)
[2019-02-19] MEDS: NOVOLOG MIX 70/30 SUBQ SCH ×2 (06:13→17:21)
[2019-02-19 06:15] LABS: ALBUMIN 2.4 g/dL (3.5-5.0); CALCIUM 7.7 mg/dL (8.8-10.2); CREATININE 2.6 mg/dL (0.7-1.2); MAGNESIUM 1.7 mg/dL (1.5-2.7); POTASSIUM 5.3 mmol/L (3.5-5.1); TOTAL BILIRUBIN 0.43 mg/dL (0.20-1.00); TOTAL PROTEIN 4.8 g/dL (6.3-8.3)
--- NOTE | 2019-02-19 07:29 | Diag Imaging Result Doc PS360 ---
EXAM: CHEST-PORTABLE HISTORY: dyspnea TECHNIQUE: Single view COMPARISON: 02/18/2019 FINDINGS: Poor inspiratory effort. No change in the right jugular catheter or in the left subclavian line. Heart is nonenlarged. There is pulmonary edema with pleural effusions. There is basilar atelectasis versus infiltrates. The overall appearance is similar to the prior exam. IMPRESSION: Stable chest Electronically signed by Rosendo Oro 02/19/2019 7:27 AM
--- NOTE | 2019-02-19 08:31 | PROGRESS NOTE ---
DATE: 02/19/2019 SUBJECTIVE: The patient is doing much better today. He is still having some pulmonary edema and fluid overload. His DKA has resolved. He has been having some episodes of hypoglycemia, apparently. He is extremely weak. I have requested physical therapy and occupational therapy to take care of this patient. Vital signs are stable. Continue with oxygen supplementation. OBJECTIVE: Vital Signs: Temperature 98.7 degrees, pulse 86, respiratory rate 15, blood pressure 134/62, oxygen saturation 99 on 2 L of nasal cannula. HEENT: Head normocephalic. No trauma. PERRLA. Neck: Supple. No JVD. No masses. Central trachea. Chest: Crepitus on the right side with coarse breath sounds, mostly on the right. His left side sounds good, some crepitus at the bases. Abdomen: Soft. A little bit distended. Positive bowel sounds. He has a drain with a little bit of serosanguineous material. No evidence of acute bleeding. Extremities: There is 1+ extremity edema. No clubbing. No cyanosis. Neurological Examination: The patient is awake. He is answering my questions. No focal deficits. Laboratory: WBC 7.8, hemoglobin 8.5, hematocrit 27.3, platelets 144,000. Sodium 136, potassium 5.3, chloride 106, bicarbonate 21, BUN 11, creatinine 2.6, glucose 208, calcium 7.7, phosphorus 2, albumin 2.4. ASSESSMENT AND PLAN: 1. Septic shock due to right lower lobe pneumonia and also this patient had an acute gangrenous cholecystitis, status post cholecystectomy. The patient seems to be doing much better. He is still complaining of some abdominal pain. He is not on pressors. He seems to be stable. 2. Gangrenous cholecystitis, status post laparoscopic cholecystectomy. He still has a drain coming out from that area with some serosanguineous material. Probably, it is going to be removed tomorrow. 3. Nausea, vomiting, and diarrhea, better. 4. Right lower lobe pneumonia. Continue with antibiotics. 5. Encephalopathy, resolved. 6. Dehydration, resolved. 7. End-stage renal disease. Continue with dialysis as scheduled. 8. Elevated troponins. I do not think it is cardiac related. 9. Diabetic ketoacidosis, resolved. 10. Anemia, status post 3 units of packed red blood cells, stable. 11. Redundant foreskin and paraphimosis, already evaluated by urology department. I think it is better. cc: Syd Rodriges MD
--- NOTE | 2019-02-19 09:47 | GENERAL SURGERY PROGRESS NOTE ---
DATE: 02/19/2019 SUBJECTIVE: Patient seems to be doing okay. Nursing staff reports no major issues. OBJECTIVE: Vital Signs: The patient is currently afebrile. His vital signs are stable. General: No acute distress. Cardiovascular: Regular rate and rhythm. Lungs: Grossly clear. Abdomen: Soft. Appropriately tender. KHADIJAH drain in place with minimal serosanguineous output. LABORATORY DATA: Reviewed. ASSESSMENT AND PLAN: A 69-year-old gentleman status post laparoscopic cholecystectomy. At this point from a surgical point of view, the patient seems to be doing okay. He has several other comorbidities keeping him in the ICU which I will defer to the other specialists. We will keep the Brent-Almanzar drain in place for right now. cc: Juan Medina MD
[2019-02-19] MEDS: SODIUM CHLORIDE 0.9% INJ SCH ×2 (13:19→23:11)
--- NOTE | 2019-02-19 14:54 | PULMONOLOGY PROGRESS NOTE ---
DATE: 02/19/2019 SUBJECTIVE: The patient is awake, alert, and conversant. He reports some abdominal pain but is otherwise without complaints. OBJECTIVE: Vital Signs: The patient has been afebrile for the last 24 hours. Blood pressure 130/68, heart rate 85, respiratory rate 16, oxygen saturation 98% on 2 L per nasal cannula. HEENT: Pupils are equal and reactive. Oropharynx appears clear. Neck: Supple. Chest: Reveals crackles at the right base. Cardiac exam: S1, S2. Abdomen: Soft with mild tenderness. Good bowel sounds are present. Extremities: Without edema. LABORATORIES: Chest x-ray reveals shallow inspiration with atelectasis predominantly at the right base and small effusions. White blood count 7.8, hemoglobin 8.5, platelet count 144,000. Sodium 136, potassium 5.3, chloride 106, bicarb 21, BUN 11, creatinine 2.5. IMPRESSIONS: A 69-year-old with: 1. Right lower lobe pneumonia. 2. Hypoxemic respiratory failure. 3. Acute cholecystitis status post cholecystectomy. 4. End-stage renal disease. 5. Diabetes mellitus. DISCUSSION: A 69-year-old with problems outlined above. Clinically, he appears to be improving status post cholecystectomy. PLAN: 1. Continue bronchial hygiene. 2. Continue oxygen for hypoxemic respiratory failure. 3. Initiate physical therapy. cc: Slade Egan MD
[2019-02-20] MEDS: SODIUM CHLORIDE 0.9% INJ SCH (02:07)
[2019-02-20] MEDS: PROTONIX IV SCH ×2 (02:07→13:47)
[2019-02-20] MEDS: ZOSYN 2.25 GM in NS 50 ML IV SCH ×3 (02:07→21:57)
[2019-02-20 05:24] LABS: BASO# 0.02 X1000 (0.0-0.2); BASO% 0.2 % (0.0-0.8); EOS# 0.37 X1000 (0.0-0.7); EOS% 4.2 % (0.0-10.0); HEMATOCRIT 28.9 % (42.0-52.0); HEMOGLOBIN 8.8 g/dL (14.0-18.0); IMM GRAN# 0.02 X1000 (0.0-0.04); IMM GRAN% 0.2 % (0.0-0.5); LYMPH# 1.23 X1000 (1.2-3.4); MCH 27.3 PG (27-31); MCHC 30.4 g/dL (33-37); MCV 89.8 FL (81-99); MONO# 0.82 X1000 (0.11-0.59); MONO% 9.3 % (1.7-9.3); MPV 9.9 FL (7.4-10.4); NEUT# 6.32 X1000 (1.4-6.5); NEUT% 72.1 % (42.2-75.2); PLT 163 X1000 (130-400); RBC 3.22 XMIL (4.7-6.1); RDW 14.1 % (11.5-14.5); WBC 8.78 X1000 (4.8-10.8)
[2019-02-20 05:50] LABS: ALB/GLOB RATIO 0.8; ALBUMIN 2.2 g/dL (3.5-5.0); CALCIUM 7.8 mg/dL (8.8-10.2); CREATININE 4.1 mg/dL (0.7-1.2); POTASSIUM 5.3 mmol/L (3.5-5.1); TOTAL BILIRUBIN 0.32 mg/dL (0.20-1.00); TOTAL PROTEIN 4.8 g/dL (6.3-8.3)
[2019-02-20] MEDS: NOVOLOG MIX 70/30 SUBQ SCH ×2 (06:58→16:43)
[2019-02-20] MEDS: HUMULIN R SUBQ SCH ×4 (06:58→21:57)
--- NOTE | 2019-02-20 07:34 | Diag Imaging Result Doc PS360 ---
EXAM: CHEST-PORTABLE 02/20/2019 HISTORY: dyspnea TECHNIQUE: AP portable at 0625 COMMENT: There is a double-lumen catheter in the right internal jugular with its tip in the right atrium and a left subclavian catheter with its tip in the superior vena cava. There is bibasilar atelectasis and/or pneumonia. The hazy opacity which was present on 02/19/2019 and most likely represented pulmonary edema has diminished. IMPRESSION: Improved pulmonary edema. Residual atelectasis. Electronically signed by Kvng Lizama 02/20/2019 7:31 AM
--- NOTE | 2019-02-20 08:08 | PROGRESS NOTE ---
DATE: 02/20/2019 SUBJECTIVE: Mr. Lars Brousasrd is a 69-year-old white male who is now postop day 3 from laparoscopic cholecystectomy with intraoperative cholangiogram for acute gangrenous cholecystitis. His drain is just draining serosanguineous fluid, and I removed it this morning. All his trocar sites are intact. Clinically he is improving, has a regular diet for breakfast. OBJECTIVE: His heart rate is 92, blood pressure 154/57, O2 saturation 96%. He is afebrile. He is receiving IV antibiotics. DIAGNOSTIC DATA: His white blood cell count is now normal. His hematocrit is 29%. His BUN and creatinine are 17 and 4.1. He is beginning make urine again. His liver function tests are within normal limits. Chest x-ray documents improved pulmonary edema. PLAN: The plan is to increase his activity and hopefully his diet improves. Dialysis per Dr. Jones. cc: Shira Messina MD
--- NOTE | 2019-02-20 09:01 | PROGRESS NOTE ---
DATE: 02/20/2019 SUBJECTIVE: This patient is doing much better. The pulmonary edema is better also. He does have weakness. I requested already physical therapy and occupational therapy to evaluate this patient. I talked to them about rehab center placement, and they will think about it. OBJECTIVE: Vital Signs: Temperature 99 degrees, pulse 95, respiratory rate 21, blood pressure 164/69, oxygen saturation 100% on room air. HEENT: Head normocephalic, no trauma, PERRLA. Neck: Supple. No JVD. No masses. Central trachea. Chest: Mild crepitus mostly on the right base. Abdomen: Soft, is slightly distended. Positive bowel sounds. His drain has been removed. He has small surgical scars with no signs of bleeding. Positive bowel sounds. Extremities: There is 1+ to 2+ lower extremity edema. No clubbing. No cyanosis. Neurological: The patient is awake, alert. He is answering my questions. No focal deficits. LABORATORY: WBC 8.7, hemoglobin 8.8, hematocrit 28.9, platelet 163,000. Sodium 138, potassium 5.3, chloride 108, bicarbonate 19, BUN 17, creatinine 4.1, glucose 182, calcium 7.8, albumin 2.2. ASSESSMENT AND PLAN: 1. Septic shock due to right lower lobe pneumonia and acute gangrenous cholecystitis, status post cholecystectomy. This patient seems to be doing much better. He still has some abdominal discomfort. He is not on pressors. He is stable. 2. Right lower lobe pneumonia. Continue with antibiotics. 3. Gangrenous cholecystitis, status post laparoscopic cholecystectomy. The abdominal drain has been removed. He is tolerating by mouth. 4. Nausea, vomiting, and diarrhea, resolved. 5. Encephalopathy, resolved. 6. Dehydration, resolved. 7. End-stage renal disease. Continue with dialysis as scheduled. 8. Elevated troponin, likely due to septic shock. I do not think it is related to any kind of cardiac condition. 9. Diabetic ketoacidosis, resolved. 10. Anemia, status post 3 packed red blood cells stable. 11. Redundant foreskin and paraphimosis. Already evaluated by Urology Department. I think this is better. 12. Generalized weakness and physical deconditioning. I talked to the patient about rehab center placement. I will put in an order for the social worker palliative care to evaluate this patient today. I believe this patient can be discharged in the next 24 to 48 hours. cc: Syd Rodriges MD
[2019-02-20] MEDS: MORPHINE IV PRN ×2 (09:49→21:56)
--- NOTE | 2019-02-20 11:14 | PROVIDER PROGRESS NOTE ---
Progress Note Dr. Berg Progress Note/Pulmonary and or critical care We appreciated progress of care, Complications, change in diagnosis, and instructions to patient under direct supervision of Dr. Berg. Subjective: We note the level of consciousness, bed (chair) position, family presence (if any), level of lethargy, feeling of symptoms, and changes from baseline condition/symptom. The patient is feeling better. He is lying in bed on room air. C/O some tenderness on the surgical area. No episode of N/V this am. Having been urinating by self, but very limited. Pending on dialysis today. Daughter at the bedside. Objective Vital Signs: We reviewed EMR current values for Pulse rate, Blood pressure, Pulse rate, respiratory rate and Pulse oximetry. Also noted other values and trends if present (e.g. I/O, CVP). Vital Signs 02/19/19 18:03 02/19/19 23:37 02/20/19 04:00 Temperature 98.2 F 98.9 F 98.2 F Pulse Rate 95 H 87 92 H Respiratory Rate 18 17 12 Blood Pressure 161/61 159/72 154/57 O2 Sat by Pulse Oximetry 100 98 96 02/20/19 08:00 02/20/19 08:31 02/20/19 11:10 Temperature 99.0 F 98.2 F Pulse Rate 95 H 93 H 95 H Respiratory Rate 21 16 23 Blood Pressure 164/69 160/62 O2 Sat by Pulse Oximetry 100 99 99 Intake & Output 02/19/19 02/20/19 02/20/19 19:59 07:59 19:59 Intake Total 345 / 620 275 / 620 Output Total 15 / 115 100 / 115 Balance 330 / 505 175 / 505 Intake: Intake, IV Amount 50 / 50 0 / 50 Intake, IVPB 55 / 55 0 / 55 Intake, Oral Amount 240 / 515 275 / 515 Output: Output, Urine Void Amount 0 / 100 100 / 100 Output, KHADIJAH Drain #1 Other: Percent of Meal Consumed Bites Only Number of Bowel Movements 0 Physical Examination: General: Chronically ill appearing. Lying in bed with no acute distress noted. Daughter at bedside. HEENT: Trachea midline. Mucus pink and dry. Chest: Remy and unlabored. Shallow breathing. Symmetrical excursion. Diminished breathing sounds bilaterally, otherwise, clear. CVS: Regular rate and rhythm. Abdomen: Soft. RUQ tenderness. Bowel sounds present. Mildly distended with edema. Extremities: BLE pitting edema 1-2+ up to thigh region. No cyanosis. No clubbing. Dorsalis pedis 1+ b/l. Neuro: A/O x3. Speech fluent. Follow commands. Labs and Radiology: Reviewed available labs and radiology values available at time of EMR review. Laboratory Results 02/19/19 02/19/19 02/19/19 17:25 19:44 23:39 WBC RBC Hgb Hct MCV MCH MCHC RDW Std Deviation Plt Count MPV Immature Gran % (Auto) Neut % (Auto) Lymph % (Auto) Weak[place] % (Auto) Eos % (Auto) Baso % (Auto) Immature Gran # (Auto) Neut # (Auto) Lymph # (Auto) Weakley # (Auto) Eos # (Auto) Baso # (Auto) Sodium Potassium Chloride Carbon Dioxide Anion Gap BUN Creatinine Estimated GFR/1.73 m2 BUN/Creatinine Ratio Glucose POC Glucose 281 H D 243 H 179 H Calculated Osmolality Calcium Total Bilirubin AST ALT Alkaline Phosphatase Total Protein Albumin Globulin Albumin/Globulin Ratio 02/20/19 02/20/19 02/20/19 05:05 05:10 05:10 WBC 8.78 RBC 3.22 L Hgb 8.8 L Hct 28.9 L MCV 89.8 MCH 27.3 MCHC 30.4 L RDW Std Deviation 14.1 Plt Count 163 MPV 9.9 Immature Gran % (Auto) 0.2 Neut % (Auto) 72.1 Lymph % (Auto) 14.0 L Weakley % (Auto) 9.3 Eos % (Auto) 4.2 Baso % (Auto) 0.2 Immature Gran # (Auto) 0.02 Neut # (Auto) 6.32 Lymph # (Auto) 1.23 Weakley # (Auto) 0.82 H Eos # (Auto) 0.37 Baso # (Auto) 0.02 Sodium 138 Potassium 5.3 H Chloride 108 H Carbon Dioxide 19 L Anion Gap 11 BUN 17 D Creatinine 4.1 H Estimated GFR/1.73 m2 15 BUN/Creatinine Ratio 4 Glucose 182 H POC Glucose 221 H Calculated Osmolality 282 Calcium 7.8 L Total Bilirubin 0.32 AST 14 ALT 10 Alkaline Phosphatase 235 H Total Protein 4.8 L Albumin 2.2 L Globulin 2.6 Albumin/Globulin Ratio 0.8 02/20/19 10:18 WBC RBC Hgb Hct MCV MCH MCHC RDW Std Deviation Plt Count MPV Immature Gran % (Auto) Neut % (Auto) Lymph % (Auto) Weakley % (Auto) Eos % (Auto) Baso % (Auto) Immature Gran # (Auto) Neut # (Auto) Lymph # (Auto) Weakley # (Auto) Eos # (Auto) Baso # (Auto) Sodium Potassium Chloride Carbon Dioxide Anion Gap BUN Creatinine Estimated GFR/1.73 m2 BUN/Creatinine Ratio Glucose POC Glucose 135 H Calculated Osmolality Calcium Total Bilirubin AST ALT Alkaline Phosphatase Total Protein Albumin Globulin Albumin/Globulin Ratio Dr. Berg evaluated and additional note below. Evaluation time in minutes: 10 minutes. Assessment: Acute hypoxemic respiratory failure. Improved. RLL pneumonia with pulmonary edema and atelectasis. Improved. Acute cholecystitis s/p cholecystectomy on 02/17/19 DM. CKD stage 5D. On hemodialysis. Hyperkalemia. Plan: Continue current treatment and supportive care per admitting and other teams on the case. Antibiotics. Encourage incentive spirometer, deep breathing, and cough. Physical therapy. Input was appreciated from Admitting MD and other teams on the case.
[2019-02-20] MEDS ORDERED: TIGHT: 0.2 ML/HR FOR DIALYSIS MISC PRN (12:01)
[2019-02-20] MEDS ORDERED: HEPARIN IV PRN (12:01)
[2019-02-20] MEDS ORDERED: NS 2,000 ML MISC PRN (12:01)
--- NOTE | 2019-02-20 15:08 | PROVIDER PROGRESS NOTE ---
Progress Note Subjective: Voices no appetite. Denies chest pain, shortness of breath, nausea and vomiting. Objective: temperature 99.0, pulse 95, respirations 21, what pressure 164/69, O2 sat 100% on room air. General: chronically ill white male in no acute distress. HEENT: normocephalic, atraumatic, conjunctiva pale pink, pupils equal and reactive. Neck: supple, JVD with hepatojugular reflux Cardiovascular: S1S2, regular rate and rhythm with no gallop or murmur. Respiratory: clear with equal air entry anteriorly Abdomen: soft, nontender, nondistended. Bowel sounds active. Multiple small incisions on clean and dry. KHADIJAH drain pulled this morning. : non-inspected Extremities: generalized edema to the bilateral upper extremities with trace bilateral lower extremity edema. Neurological: alert and oriented to person, place, and time. Labs: WBC 8.78, hemoglobin 8.8, hematocrit 28.9, platelet count 163, 3138, potassium 5.3, chloride 108, carbon dioxide 19, BUN 17, creatinine 4.1 alkaline phosphatase 235, total protein 4.8, albumin 2.2. Intake 620, output 115. Impression: Acute tubular necrosis without recovery related to septic shock. He will have hemodialysis today with a 2k bath and 4 L ultrafiltration. We will continue to monitor. Blood pressure. In target. Fluid volume. Slightly expanded. Anemia. Stable on last labs. Electrolytes. Stable, correction with hemodialysis Acid base balance. Slightly Acidotic. Correction with hemodialysis. Ambulation. PT/OT consulted Medication review. Morphine
[2019-02-20] MEDS: VANCOMYCIN 500 MG/NS 500 MG/100 ML IVPB IV SCH (21:49)
[2019-02-21] MEDS: PROTONIX IV SCH ×2 (01:04→14:14)
[2019-02-21] MEDS: ZOSYN 2.25 GM in NS 50 ML IV SCH ×3 (01:04→17:24)
[2019-02-21 05:32] LABS: HEMATOCRIT 27.6 % (42.0-52.0); HEMOGLOBIN 8.8 g/dL (14.0-18.0); MCH 28.6 PG (27-31); MCHC 31.9 g/dL (33-37); MCV 89.6 FL (81-99); MPV 10.2 FL (7.4-10.4); RBC 3.08 XMIL (4.7-6.1); WBC 8.89 X1000 (4.8-10.8)
[2019-02-21 05:55] LABS: CALCIUM 7.9 mg/dL (8.8-10.2); CREATININE 3.5 mg/dL (0.7-1.2); POTASSIUM 4.3 mmol/L (3.5-5.1)
[2019-02-21] MEDS: HUMULIN R SUBQ SCH ×5 (06:29→21:16)
[2019-02-21] MEDS: NOVOLOG MIX 70/30 SUBQ SCH ×2 (06:29→17:29)
[2019-02-21] MEDS: TRANSDERM-SCOP TD SCH (06:29)
--- NOTE | 2019-02-21 09:21 | PROGRESS NOTE ---
DATE: 02/21/2019 SUBJECTIVE: Mr. Broussard's trocar site seems to be healing well. OBJECTIVE: His abdomen remains soft. He is tall tolerating a regular diet. He states that he has some trouble swallowing. The etiology of this is unknown. He got dialyzed yesterday. PLAN: We are trying to increase his activity with physical therapy and have his diet improve. I think from a surgical standpoint he is doing well. cc: Shira Messina MD
--- NOTE | 2019-02-21 12:23 | PROVIDER PROGRESS NOTE ---
Progress Note Dr. Berg Progress Note/Pulmonary and or critical care We appreciated progress of care, Complications, change in diagnosis, and instructions to patient under direct supervision of Dr. Berg. Subjective: We note the level of consciousness, bed (chair) position, family presence (if any), level of lethargy, feeling of symptoms, and changes from baseline condition/symptom. The patient is sitting on chair. On room air. C/O some tenderness on the surgical area. No episode of N/V this am. BM this am. Physical therapy this am and feel very weak, but no SOB. Family at the bedside. Objective Vital Signs: We reviewed EMR current values for Pulse rate, Blood pressure, Pulse rate, respiratory rate and Pulse oximetry. Also noted other values and trends if present (e.g. I/O, CVP). Vital Signs 02/20/19 15:40 02/20/19 16:00 02/20/19 20:00 Temperature 97.8 F 99.1 F Pulse Rate 96 H 96 H 95 H Respiratory Rate 16 24 18 Blood Pressure 180/69 121/58 O2 Sat by Pulse Oximetry 97 100 96 02/20/19 20:28 02/21/19 00:00 02/21/19 04:00 Temperature 97.8 F 97.9 F Pulse Rate 95 H 94 H Respiratory Rate 18 18 Blood Pressure 115/51 139/57 O2 Sat by Pulse Oximetry 98 96 93 L 02/21/19 08:00 02/21/19 12:00 Temperature 97.5 F L 98.4 F Pulse Rate 96 H 96 H Respiratory Rate 18 20 Blood Pressure 151/80 148/69 O2 Sat by Pulse Oximetry 100 100 Intake & Output 02/20/19 02/21/19 02/21/19 19:59 07:59 19:59 Intake Total 250 / 700 450 / 700 593 / 593 Output Total 175 / 4075 3900 / 4075 50 / 50 Balance 75 / -3375 -3450 / -3375 543 / 543 Intake: Intake, IVPB 50 / 50 Intake, Oral Amount 250 / 650 400 / 650 593 / 593 Output: Output, Urine Void Amount 175 / 275 100 / 275 50 / 50 Output Dialysis 3800 / 3800 Other: Percent of Meal Consumed 100% 0 25% NG/Feeding Tube Residual Check No No & Amount Number of Bowel Movements 0 1 Physical Examination: General: Chronically ill appearing. Sitting on the chair with no acute distress noted. Family at bedside. HEENT: Trachea midline. Mucus pink and dry. Chest: Remy and unlabored. Symmetrical excursion. Diminished breathing sounds bilaterally, otherwise, clear. CVS: Regular rate and rhythm. Abdomen: Soft. RUQ tenderness. Bowel sounds present. Mildly distended with edema. Extremities: BLE pitting edema 1-2+. No cyanosis. No clubbing. Dorsalis pedis 1+ b/l. Neuro: A/O x3. Speech fluent. Follow commands. Labs and Radiology: Reviewed available labs and radiology values available at time of EMR review. Laboratory Results 02/20/19 02/20/19 02/21/19 16:07 21:51 05:08 WBC RBC Hgb Hct MCV MCH MCHC RDW Std Deviation Plt Count MPV Sodium 136 Potassium 4.3 D Chloride 103 Carbon Dioxide 22 L Anion Gap 11 BUN 13 Creatinine 3.5 H Estimated GFR/1.73 m2 18 BUN/Creatinine Ratio 4 Glucose 123 H POC Glucose 135 H 105 H Calculated Osmolality 273 Calcium 7.9 L 02/21/19 02/21/19 02/21/19 05:08 05:51 11:09 WBC 8.89 RBC 3.08 L Hgb 8.8 L Hct 27.6 L MCV 89.6 MCH 28.6 MCHC 31.9 L RDW Std Deviation 14.0 Plt Count 176 MPV 10.2 Sodium Potassium Chloride Carbon Dioxide Anion Gap BUN Creatinine Estimated GFR/1.73 m2 BUN/Creatinine Ratio Glucose POC Glucose 136 H 169 H Calculated Osmolality Calcium Dr. Berg evaluated and additional note below. Evaluation time in minutes: 10 minutes. Assessment: Acute hypoxemic respiratory failure. Improved. RLL pneumonia with pulmonary edema and atelectasis. Improved. Acute cholecystitis s/p cholecystectomy on 02/17/19 DM. Acute tubular necrosis without recovery. On hemodialysis per Dr. Jones. Hyperkalemia. Plan: Continue current treatment and supportive care per admitting and other teams on the case. Antibiotics. Encourage incentive spirometer, deep breathing, and cough. Physical therapy. Discharge planning per hospitalist. Input was appreciated from Admitting MD and other teams on the case.
--- NOTE | 2019-02-21 15:04 | PROGRESS NOTE ---
DATE: 02/21/2019 SUBJECTIVE: The patient is doing much better, he is extremely weak. We are working on physical therapy, he has been evaluated by Physical Therapy. In the other hand, I have talked to the patient and the at the bedside about sending this patient to a rehab center but they prefer to go home so hopefully tomorrow after dialysis I will discharge this patient if everything is okay. OBJECTIVE: Vital Signs: Temperature 98 degrees, pulse 96, respiratory rate 20, blood pressure 148/69, oxygen saturation 100% on room air. HEENT: Head normocephalic, no trauma. PERRLA. Neck: Supple. No JVD. No masses. Central trachea. Chest: Mild crepitus mostly on the right base. Abdomen: Soft, slightly distended. Positive bowel sounds. No drainage. Extremities: 1+ lower extremity edema. No clubbing, no cyanosis. Neurologic: The patient is awake, alert, he is answering my questions. No focal deficits but generalized weakness. LABORATORY: WBC 8.8, hemoglobin 8.8, hematocrit 27.6, platelet 176,000. Sodium 136, potassium 4.3, chloride 103, bicarbonate 22, BUN 13, creatinine 3.5, glucose 123, calcium 7.9. ASSESSMENT AND PLAN: 1. Septic shock due to right lower lobe pneumonia and acute gangrenous cholecystitis status post cholecystectomy, patient seems to be doing better. Septic shock resolved. No pressors. 2. Right lower lobe pneumonia. Continue antibiotics. 3. Gangrenous cholecystitis status post laparoscopic cholecystectomy. Abdominal drain has been removed. He is tolerating by mouth. 4. Nausea, vomiting, diarrhea, resolved. 5. Encephalopathy, resolved. 6. Dehydration, resolved. 7. End-stage renal disease. Continue with dialysis as scheduled. 8. Elevated troponin likely due to septic shock. I do not think this is related to any cardiac condition. 9. Diabetes ketoacidosis, resolved. 10. Anemia status post 3 packed red blood cells. 11. Redundant foreskin and paraphimosis, already evaluated by Urology Department. This is better. Follow up as an outpatient. 12. Generalized weakness and physical deconditioning. We have been talking about sending this patient to a rehab center but they refused, I will continue working with Physical Therapy during this hospitalization and tomorrow hopefully after dialysis this patient will be discharged. cc: Syd Rodriges MD
[2019-02-21] MEDS: MORPHINE IV PRN (17:18)
--- NOTE | 2019-02-21 19:09 | PROVIDER PROGRESS NOTE ---
Progress Note Subjective: Voices no appetite. Denies chest pain, shortness of breath, nausea and vomiting. Objective: temperature 97.9, pulse 94, blood pressure 139/57, respirations 18, 02 sat 93% on room air. General: chronically ill white male in no acute distress. HEENT: normocephalic, atraumatic, conjunctiva pale pink, pupils equal and reactive. Neck: supple, JVD with hepatojugular reflux Cardiovascular: S1S2, regular rate and rhythm with no gallop or murmur. Respiratory: clear with equal air entry anteriorly Abdomen: soft, nontender, nondistended. Bowel sounds active. Multiple small incisions on clean and dry. : non-inspected Extremities: trace bilateral lower extremity edema. Black Escher noted to tip of 3rd toe on the left foot. Left heel boggy. Neurological: drowsy, oriented to person, place, and time. Labs: WBC 8.89, hemoglobin 8.8, hematocrit 27.6, platelet count 176, sodium 136, potassium 4.3, chloride 103, carbon dioxide 22, BUN 13, creatinine 3.5, intake 700, output 4075. Impression: Acute tubular necrosis without recovery related to septic shock. He had hemodialysis yesterday with a 3.8 L ultrafiltration. Hes getting ready for discharge pending PT/OT. He will be going home with home health. We will have him set up in an outpatient setting. Blood pressure. In target. Fluid volume. Slightly expanded. Anemia. Stable on last labs. Electrolytes. Stable Acid base balance. Stable. Ambulation. PT/OT consulted Medication review. No changes.
[2019-02-22] MEDS: MORPHINE IV PRN ×3 (00:02→15:44)
[2019-02-22] MEDS: PROTONIX IV SCH ×2 (01:24→14:00)
[2019-02-22] MEDS: ZOSYN 2.25 GM in NS 50 ML IV SCH ×2 (01:24→10:22)
[2019-02-22] MEDS ORDERED: TIGHT: 0.2 ML/HR FOR DIALYSIS MISC PRN (06:28)
[2019-02-22] MEDS: HUMULIN R SUBQ SCH ×2 (06:28→10:31)
[2019-02-22] MEDS ORDERED: NS 2,000 ML MISC PRN (06:28)
[2019-02-22] MEDS ORDERED: HEPARIN IV PRN (06:28)
[2019-02-22] MEDS: NOVOLOG MIX 70/30 SUBQ SCH ×2 (06:28→16:29)
[2019-02-22 08:06] LABS: HEMOGLOBIN 8.7 g/dL (14.0-18.0); MCH 27.7 PG (27-31); MCHC 31.1 g/dL (33-37); MCV 89.2 FL (81-99); MPV 10.2 FL (7.4-10.4); RBC 3.14 XMIL (4.7-6.1); RDW 13.9 % (11.5-14.5); WBC 9.66 X1000 (4.8-10.8)
[2019-02-22 09:08] LABS: ALBUMIN 2.2 g/dL (3.5-5.0); CALCIUM 7.9 mg/dL (8.8-10.2); PHOSPHORUS 3.3 mg/dL (2.7-4.5); POTASSIUM 4.6 mmol/L (3.5-5.1)
[2019-02-22 11:42] VITALS: BP 130/58
--- NOTE | 2019-02-22 12:14 | PROVIDER PROGRESS NOTE ---
Progress Note Dr. Berg Progress Note/Pulmonary and or critical care We appreciated progress of care, Complications, change in diagnosis, and instructions to patient under direct supervision of Dr. Berg. Subjective: We note the level of consciousness, bed (chair) position, family presence (if any), level of lethargy, feeling of symptoms, and changes from baseline condition/symptom. The patient is on dialysis at this time. He is lying in bed with eyes closed, but easy to be awaked. He has no complaint at this time. Objective Vital Signs: We reviewed EMR current values for Pulse rate, Blood pressure, Pulse rate, respiratory rate and Pulse oximetry. Also noted other values and trends if present (e.g. I/O, CVP). Vital Signs 02/21/19 16:00 02/21/19 19:13 02/21/19 20:22 Temperature 98.9 F 98.6 F Pulse Rate 96 H 96 H Respiratory Rate 22 18 Blood Pressure 159/65 139/52 O2 Sat by Pulse Oximetry 100 100 99 02/21/19 21:11 02/21/19 23:54 02/22/19 04:00 Temperature 97.7 F 98.2 F 98.5 F Pulse Rate 103 H 94 H 50 L Respiratory Rate 17 18 17 Blood Pressure 141/53 133/53 118/87 O2 Sat by Pulse Oximetry 96 100 92 L 02/22/19 08:00 02/22/19 11:42 Temperature 98.0 F 97.9 F Pulse Rate 92 H 86 Respiratory Rate 18 18 Blood Pressure 144/55 130/58 O2 Sat by Pulse Oximetry 98 98 Intake & Output 02/21/19 02/22/19 02/22/19 19:59 07:59 19:59 Intake Total 763 / 963 200 / 963 240 / 240 Output Total 50 / 150 100 / 150 Balance 713 / 813 100 / 813 240 / 240 Intake: Intake, IV Amount 0 / 0 Intake, IVPB 50 / 50 Intake, Oral Amount 713 / 913 200 / 913 240 / 240 Output: Output, Urine Void Amount 50 / 150 100 / 150 Other: Percent of Meal Consumed 50% Bites Only Number of Bowel Movements 1 1 Physical Examination: General: Chronically ill appearing. Lying in bed on dialysis with no acute distress noted. HEENT: Trachea midline. Mucus pink and moist. Chest: Remy and unlabored. Symmetrical excursion. Diminished breathing sounds bilaterally, otherwise, clear. CVS: Regular rate and rhythm with systolic murmur noted. Abdomen: Soft. RUQ tenderness. Bowel sounds present. Mildly distended with edema. Extremities: BLE pitting edema 1+. No cyanosis. No clubbing. Dorsalis pedis 1+ b/l. Neuro: A/O x3. Speech fluent. Follow commands. Labs and Radiology: Reviewed available labs and radiology values available at time of EMR review. Laboratory Results 02/21/19 02/21/19 02/22/19 16:37 19:46 05:56 WBC RBC Hgb Hct MCV MCH MCHC RDW Std Deviation Plt Count MPV Sodium Potassium Chloride Carbon Dioxide Anion Gap BUN Creatinine Estimated GFR/1.73 m2 BUN/Creatinine Ratio Glucose POC Glucose 275 H D 323 H 288 H Calculated Osmolality Calcium Phosphorus Albumin 02/22/19 02/22/19 02/22/19 07:43 07:43 10:22 WBC 9.66 RBC 3.14 L Hgb 8.7 L Hct 28.0 L MCV 89.2 MCH 27.7 MCHC 31.1 L RDW Std Deviation 13.9 Plt Count 222 MPV 10.2 Sodium 136 Potassium 4.6 Chloride 103 Carbon Dioxide 20 L Anion Gap 13 BUN 24 H D Creatinine 5.0 H Estimated GFR/1.73 m2 12 BUN/Creatinine Ratio 5 Glucose 296 H D POC Glucose 273 H Calculated Osmolality 287 Calcium 7.9 L Phosphorus 3.[address] Berg evaluated and additional note below. Evaluation time in minutes: 10 minutes. Assessment: Acute hypoxemic respiratory failure. Improved. RLL pneumonia with pulmonary edema and atelectasis. Improved. Acute cholecystitis s/p cholecystectomy on 02/17/19 DM. Acute tubular necrosis without recovery. On hemodialysis per Dr. Jones. Hyperkalemia. Plan: Continue current treatment and supportive care per admitting and other teams on the case. Antibiotics. Encourage incentive spirometer, deep breathing, and cough. Physical therapy. Discharge planning per hospitalist. Input was appreciated from Admitting MD and other teams on the case.
[2019-02-22] MEDS: ZOFRAN IV PRN (15:45)
[2019-02-22] MEDS: VANCOMYCIN 500 MG/NS 500 MG/100 ML IVPB IV SCH (15:53)
--- NOTE | 2019-02-22 16:08 | PROVIDER PROGRESS NOTE ---
Progress Note Subjective: voices mild abdominal surgical incision pain and continues to have a low appetite. Denies all other uremic complaints. Objective: temperature 98.5, pulse 50, respirations 17, blood pressure 118/87, 02 sat 92% on room air. General: chronically ill white male in no acute distress. HEENT: normocephalic, atraumatic, conjunctiva pale pink, pupils equal and reactive. Neck: supple, JVD with hepatojugular reflux Cardiovascular: S1S2, regular rate and rhythm with no gallop or murmur. Respiratory: clear with equal air entry anteriorly Abdomen: soft, nontender, nondistended. Bowel sounds active. Multiple small incisions on clean and dry. : non-inspected Extremities: trace bilateral lower extremity edema. Black Escher noted to tip of 3rd toe on the left foot. Left heel boggy. Neurological:alert, oriented to person, place, and time. Labs: WBC 9.66, hemoglobin 8.7, hematocrit 28.0, count 222, sodium 136, potassium 4.6, chloride 103, carbon dioxide 20, anion gap 13, BUN 24, creatinine 5.0, intake 963, output 150. Impression: Acute tubular necrosis without recovery related to septic shock. He will receive a 2k bath/ 2 L ultrafiltration hemodialysis treatment today. His outpatient dialysis is set up for [place] MWF. Blood pressure. In target. Fluid volume. Slightly expanded. Anemia. Stable. Electrolytes. Stable Acid base balance. Stable. Ambulation. PT/OT ok with discharge today. Medication review. No changes.
--- NOTE | 2019-02-23 12:38 | DISCHARGE SUMMARY ---
ADMISSION DATE: 02/11/2019 DISCHARGE DATE: 02/22/2019 DISCHARGE DIAGNOSES: 1. Septic shock due to right lower lobe pneumonia and acute gangrenous cholecystitis, status post cholecystectomy. 2. Right lower lobe pneumonia. 3. Gangrenous cholecystitis, status post laparoscopic cholecystectomy. 4. Nausea, vomiting, diarrhea, resolved. 5. Encephalopathy, resolved. 6. Dehydration, resolved. 7. End-stage renal disease. Continue with dialysis as scheduled. 8. Elevated troponin, likely due to septic shock. 9. Diabetic ketoacidosis, resolved. 10. Anemia, status post 3 packed red blood cells. 11. Redundant foreskin and paraphimosis. 12. Generalized weakness and physical deconditioning. PROCEDURES PERFORMED: 1. Chest x-ray dated 02/11/2019, impression: Right lower lobe pneumonia. 2. Chest x-ray dated 02/11/2019, impression: Worsened right middle lobe and lower lobe atelectasis. 3. Chest x-ray dated 02/14/2019, impression: Suggestion of trace effusion of the right lung base, stable chest otherwise. 4. Chest x-ray dated 02/15/2019, impression: Improved right lower lobe atelectasis and pleural effusion. 5. Chest x-ray dated 02/16/2019, impression: Stable chest. 6. Abdomen ultrasound dated 02/16/2019, impression: The possibility of acute cholecystitis cannot be excluded. 7. Abdomen and pelvis CT scan dated 02/16/2019, impression: Anasarca and pleural effusion, the possibility of cholecystitis cannot be excluded, subcapsular fluid collection in the inferior liver, which may be a hematoma, bilateral nephrolithiasis, without evidence of obstructive uropathy, chronic cystitis. 8. Chest x-ray dated 02/17/2019, impression: Atelectasis versus pneumonia, right lower lobe, mild pulmonary edema. 9. Chest x-ray dated 02/18/2019, impression: Stable chest. 10. Chest x-ray dated 02/19/2019, impression: Stable chest. 11. Chest x-ray dated 02/20/2019, impression: Improved pulmonary edema, residual atelectasis. CONSULTS: Dr. Jones, Nephrology Department; Dr. Berg/Dr. Egan, Pulmonary Department; Urology Department, Dr. Gomez. HOSPITAL COURSE: A 69-year-old, male with a past medical history of type 2 diabetes and end-stage renal disease on hemodialysis, presented to [facility] ER via EMS after he was discharged from [facility] the day before. He was admitted on 02/11/2019. Family member at the bedside, and apparently he has been having some shortness of breath, but she was not sure about the exact diagnosis. Like I mentioned before, he has end-stage renal disease, and he has receives dialysis. In the emergency department, his blood pressure was low, with a temperature of 95 degrees. Central line has been placed. He was placed on Levophed drip. White blood cell count was elevated at 26.5. His creatinine was 3.7, glucose 378. Troponin 0.4. It is felt that it may be elevated due to his end-stage renal disease and current condition with septic shock. Chest x-ray showed right lower lobe pneumonia, so he was transferred to [facility] due to his septic shock. Also, he was in DKA. He was placed also on an insulin drip, and actually he also came in with a possibility of paraphimosis and redundant foreskin that was treated by Urology Department. This patient, after resolving the first time, his DKA got much better, and he was transferred to the medical floor, but immediately, 1 or 2 days later, he started to feel bad again, and he started having nausea, vomiting, and some diarrhea suddenly during the night, so he was back in DKA again, and he was sent back to the ICU. We did an ultrasound of the abdomen and CT scan of the abdomen that showed the possibility of cholecystitis. Surgery Department evaluated this patient, but the whole picture was not clear, and actually the surgeon discussed the case with the radiologist, and at the end, he decided to go ahead and take this patient to the OR, and he did a laparoscopic cholecystectomy with intraoperative cholangiogram, and he found an acute gangrenous cholecystitis. After the surgery, the patient started improving on a daily basis. His blood sugar started to get better, as well as all his numbers. We noticed also that this patient was extremely weak, but he had been refusing to go to a rehab center, so he will be discharged home with home health and physical therapy at home. Today after dialysis, he will be discharged. He seems to be doing good. At some point during this hospitalization also, he was confused, but now is completely resolved. He will need to follow up with Urology Department as an outpatient, as well as Nephrology Department to continue his dialysis. I believe his next dialysis would be in 2 days. Hopefully, he will get completely better since we did the surgery. The patient seems to be in a stable medical condition. He was tolerating p.o. He was ambulating with Physical Therapy, and I think he is ready to be discharged. PHYSICAL EXAMINATION: Vital Signs: Temperature 97.9 degrees, pulse 86, respiratory rate 18, blood pressure 130/58, oxygen saturation 98 on room air. HEENT: Head normocephalic. No trauma. PERRLA. Neck: Supple. No JVD. No masses. Central trachea. Chest: Mild crepitus, mostly on the right base. Abdomen: Soft, slightly distended, but positive bowel sounds. No drainage. Extremities: There is 1+ lower extremity edema. No clubbing. No cyanosis. He does have an amputation of one of the toes. Neurological: The patient was completely awake, alert. He was oriented x3. No focal deficits. LABORATORY DATA: WBC 9.6, hemoglobin 8.7, hematocrit 28, platelets 222,000. Sodium 136, potassium 4.6, chloride 103, bicarbonate 20, BUN 24, creatinine 5, glucose 296, calcium 7.9. Phosphorus 3.3. DISCHARGE MEDICATIONS: Pantoprazole 40 mg p.o. daily, Augmentin 500/125 mg tablet p.o. daily for 4 days I believe, and insulin NovoLog 70/30, 10 units subcutaneously b.i.d. Normally, he was using 32 units of insulin NovoLog 70/30 twice a day. I instructed the to increase the dose slowly if the blood sugar is high. He was not eating too much here, and the blood sugar has been stable. TIME SPENT: Time discharging this patient was 45 minutes. cc: Syd Rodriges MD
== END 2019-02-22 17:34 | disposition home health service (06) | DRG 853 ==
LOC: P.ED 04:31 → SUATTDRO 04:32 → P.EDIPHOLD 04:32 → 1N 02-15 01:16 → ICU 02-15 12:08 → 1N 02-19 14:36
PROVIDERS: ATTEND Internal Medicine

== ENCOUNTER 2019-02-27 01:56 | Inpatient (IN) ==
[2019-02-27] MEDS ORDERED: NS 500 ML IV ONE (02:39)
[2019-02-27] MEDS ORDERED: ZOFRAN IV ONE (02:39)
[2019-02-27 02:53] LABS: ALLEN TEST YES; BE -15.4 mmoll (-3.0-3.0); BLOOD TYPE ARTERIAL; HCO3-(ACT) 12.8 mmoll (20.0-26.0); METHB 0.8 % (0.0-1.5); O2(CT) 11.3 mL/dL (15.0-23.0); PO2(98.6) 54 mmHg (60-100); SAMPLE BLOOD; SAO2 92.2 % (95.0-100.0); THB 8.9 g/dL (11.5-17.4); pH(98.6) 7.32 (7.35-7.45)
[2019-02-27 02:54] LABS: MODALITY ROOM AIR
[2019-02-27 02:56] LABS: O2HB 89.8 % (95.0-99.0); PCO2(98.6) 17 mmHg (35-45)
--- NOTE | 2019-02-27 05:02 | EKG Report ---
Test Performed on : 02/27/2019 02:53:10 AM Test Reason : dka Blood Pressure : / mmHG Vent. Rate : 100 BPM Atrial Rate : 100 BPM P-R Int : 138 ms QRS Dur : 082 ms QT Int : 354 ms P-R-T Axes : 044 057 037 degrees QTc Int : 456 ms Normal sinus rhythm. Cannot rule out Anterior infarct , age undetermined Abnormal ECG When compared with ECG of 16-FEB-2019 12:43, Nonspecific T wave abnormality has replaced inverted T waves in Inferior leads Unconfirmed Result
[2019-02-27 05:08] LABS: BASO# 0.03 X1000 (0.0-0.2); BASO% 0.3 % (0.0-0.8); EOS# 0.03 X1000 (0.0-0.7); EOS% 0.3 % (0.0-10.0); HEMATOCRIT 33.7 % (42.0-52.0); HEMOGLOBIN 10.8 g/dL (14.0-18.0); IMM GRAN# 0.14 X1000 (0.0-0.04); IMM GRAN% 1.6 % (0.0-0.5); LYMPH# 1.33 X1000 (1.2-3.4); LYMPH% 15.1 % (20.5-51.1); MCH 27.9 PG (27-31); MCV 87.1 FL (81-99); MONO# 0.51 X1000 (0.11-0.59); MONO% 5.8 % (1.7-9.3); MPV 10.3 FL (7.4-10.4); NEUT# 6.74 X1000 (1.4-6.5); NEUT% 76.9 % (42.2-75.2); PLT 337 X1000 (130-400); RBC 3.87 XMIL (4.7-6.1); RDW 14.1 % (11.5-14.5); WBC 8.78 X1000 (4.8-10.8)
[2019-02-27 06:08] LABS: ESTIMATED GFR 9
--- NOTE | 2019-02-27 06:10 | PROVIDER DOCUMENTATION ---
HPI-Abdominal Pain/GI Problem - General Chief Complaint: Altered Mental Status Stated Complaint: high blood sugar Time Seen by Provider: 02/27/19 02:29 Source: patient Allergies/Adverse Reactions: Patient Allergies Allergy/AdvReac Type Severity Reaction Status Date / Time No Known Allergies Allergy Verified 01/11/19 20:52 Home Medications: Home Medication List Medication Instructions Recorded Confirmed Last Taken Type Insulin Novolog 70/30 [Novolog Mix 10 unit SUBQ BID AC #1 insuln.pen 02/21/19 02/27/19 Unknown Rx 70/30] Pantoprazole [Protonix] 40 mg PO DAILY@0700 #90 tab 02/21/19 02/27/19 Unknown Rx - History of Present Illness-ABD Nature of Presenting Problems: 69 y/o WM c/o nausea and vomiting for the past 3 days to the point where he cannot keep anything down including his medications. Pt has recent surgery for GB removal and was just released from hospital Wednesday with po abx. Abdominal Pain Onset Location: reports: generalized abdomen Pain Radiation: reports: no radiation Quality of Pain: reports: aching Severity in ED: reports: mild Onset/Duration: reports: 3 days ago Timing: reports: still present, getting worse Activities at Onset: reports: rest Exposure to sick contacts?: No Modifying Factors: improves with: vomiting Associated Symptoms: reports: nausea, vomiting Last BM: 24 hours ago Dark Stools Present?: reports: none noticed Rectal Bleeding: reports: none # of Diarrhea Episodes: 0 Rectal Pain: reports: none # of Vomiting Episodes: 4 Emesis Description: reports: clear Bruising or Bleeding Gums?: No Similar Symptoms Previously?: No Recently seen or treated by another doctor?: Yes (recent GB surgery here) Review of Systems - Adult - REVIEW OF SYSTEMS - ADULT Constitutional: reports: no symptoms reported, see HPI Eyes: reports: no symptoms reported, see HPI Ears, Nose, Mouth & Throat: reports: no symptoms reported, see HPI Cardiovascular: reports: no symptoms reported, see HPI Respiratory: reports: no symptoms reported, see HPI Gastrointestinal: reports: see HPI, abdominal pain, nausea, vomiting Genitourinary: reports: no symptoms reported, see HPI Musculoskeletal: reports: no symptoms reported, see HPI Integumentary: reports: no symptoms reported, see HPI Neurological: reports: no symptoms reported, see HPI Psychiatric: reports: no symptoms reported, see HPI Endocrine: reports: no symptoms reported, see HPI Hematologic/Lymphatic: reports: no symptoms reported, see HPI Allergic/Immunologic: reports: no symptoms reported, see HPI All Other Systems: Reviewed and Negative Past History - Adult - PAST MEDICAL HISTORY-ADULT Review of Records: reports: Nursing Assessment Review, Medications Reviewed, Social history reviewed & non-contributory. Cardiovascular: reports: denies history Respiratory: reports: denies history Gastrointestinal: reports: other (gallbladder disease) Genitourinary: reports: dialysis, ESRD, kidney stones Endocrine/Immune: reports: Diabetes - IMMUNIZATION STATUS Childhood Immunizations: See Nurse Assessment Flu Vaccine: See Nurse Assessment - FAMILY HISTORY Family History: reviewed, not pertinent Physical Exam-General - PHYSICAL EXAM-ADULT Initial Vital Signs Reviewed: Yes - CONSTITUTIONAL General Appearance: alert, mild distress - EYES Eyes: PERRL/EOMI - HEAD, EARS, NOSE, MOUTH & THROAT HENMT: normocephalic/atraumatic, moist mucous membranes - NECK Neck: non-tender, full range of motion, supple, normal inspection - RESPIRATORY Respiratory: chest non-tender, lungs clear, normal breath sounds, no pleuratic chest pain, no respiratory distress, no accessory muscle use - CARDIOVASCULAR Cardiovascular: normal peripheral pulses, regular rate, rhythm, no edema, no gallop, no JVD, no murmur - GASTROINTESTINAL (ABDOMEN) Abdominal Exam: normal bowel sounds, soft, no organomegaly, no pulsatile mass, tenderness (mild generalized abdo tenderness.) - LYMPHATIC Lymphatic: no adenopathy - MUSCULOSKELETAL Back Exam: normal inspection, no CVA tenderness, no vertebral tenderness Extremity: normal range of motion, non-tender, normal gait, normal inspection, no pedal edema, no calf tenderness, normal capillary refill - SKIN Integumentary: normal color, normal turgor - NEUROLOGIC Neurologic: 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 radiation 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 II-XII nml as tested, grossly normal, no motor/sensory deficits - PSYCHIATRIC Psych/Mental Status: normal mood/affect, normal thought content, normal thought process, oriented x 3 Progress - PLAN OF CARE/RESULTS Progress/Plan/Lab Results: Vital Signs - 8 hr 02/27/19 02:09 02/27/19 02:17 02/27/19 02:32 Temperature Pulse Rate 99 H 99 H Respiratory Rate 20 16 Blood Pressure 105/75 93/54 91/60 O2 Sat by Pulse Oximetry 100 96 100 02/27/19 02:35 02/27/19 02:47 02/27/19 03:02 Temperature 97.9 F Pulse Rate 100 H 99 H 98 H Respiratory Rate 18 14 14 Blood Pressure 105/75 94/40 109/72 O2 Sat by Pulse Oximetry 97 100 99 02/27/19 03:17 02/27/19 05:07 02/27/19 05:08 Temperature 97.7 F Pulse Rate 100 H 94 H 96 H Respiratory Rate 18 13 20 Blood Pressure 102/77 111/58 111/58 O2 Sat by Pulse Oximetry 100 100 99 02/27/19 05:17 02/27/19 05:32 02/27/19 05:35 Temperature 97.7 F Pulse Rate 94 H 93 H 93 H Respiratory Rate 20 19 17 Blood Pressure 121/54 119/55 119/55 O2 Sat by Pulse Oximetry 100 100 96 Laboratory Results - last 24 hr 02/27/19 02/27/19 02/27/19 02:32 03:08 04:45 WBC 8.78 RBC 3.87 L Hgb 10.8 L Hct 33.7 L MCV 87.1 MCH 27.9 MCHC 32.0 L RDW Std Deviation 14.1 Plt Count 337 MPV 10.3 Immature Gran % (Auto) 1.6 H Neut % (Auto) 76.9 H Lymph % (Auto) 15.1 L Solano % (Auto) 5.8 Eos % (Auto) 0.3 Baso % (Auto) 0.3 Immature Gran # (Auto) 0.14 H Neut # (Auto) 6.74 H Lymph # (Auto) 1.33 Solano # (Auto) 0.51 Eos # (Auto) 0.03 Baso # (Auto) 0.03 Specimen Type ARTERIAL Sample Site R BRACHIAL pH 7.32 L pCO2 17 L* pO2 54 L HCO3 12.8 L Base Excess -15.4 L Oxyhemoglobin 89.8 L* ABG O2 Sat (Calculated) 11.3 L ABG O2 Saturation 92.2 L ABG Carboxyhemoglobin 1.80 ABG Methemoglobin 0.8 Jaya Test YES A-a O2 Difference 74.0 Total Hemoglobin 8.9 L Lactate 1.70 Blood Gas Modality ROOM AIR FiO2 % 21.0 POC Glucose 325 H Orders Category Date Time Status Finger Stick Blood Sugar (ED) DIRECTED Care 02/27/19 02:32 Active CHEST-1 VIEW [RAD] Stat Exams 02/27/19 02:40 Taken ABG [RESP] Routine Lab 02/27/19 02:32 Completed ACETONE SERUM [CHEM] Stat Lab 02/27/19 04:45 Received CBC WITH ELECTRONIC DIFF [HEME] Stat Lab 02/27/19 04:45 Completed COMPREHENSIVE METABOLIC PANEL [CHEM] Stat Lab 02/27/19 04:45 Received TROPONIN T HIGH SENSITIVITY Stat Lab 02/27/19 04:45 Received URINALYSIS [URINALYSIS] Stat Lab 02/27/19 02:32 Uncollected 0.9% Sodium Chloride Inj [Ns] 500 ml Med 02/27/19 02:39 Discontinued IV 999 mls/hr Ondansetron [Zofran] Med 02/27/19 02:39 Discontinued 4 mg IV NOW ONE EKG [EKG] Stat Ther 02/27/19 02:40 Draft Result Diagrams: 02/28/19 05:13 02/28/19 05:13 - CHANGE OF SHIFT REPORT (ED Provider) 1 Report Given and Care Transferred to:: Dr Worley Time of Transfer: 07:04 Items Pending: Labs, Physician Consult/Arrival Departure - Departure Date of Disposition Decision: 02/27/19 Time of Disposition Decision: 07:00 DIAGNOSIS: UTI (urinary tract infection), Nausea & vomiting, Uncontrolled diabetes mellitus, Anemia, ARF (acute renal failure) Disposition: ADMITTED INPATIENT 09 Certified Medical Emergency: Emergent Condition: Fair - Critical Care Note This patient required my direct & personal management of CC.: No Attestation - Physician/ LOPEZ Attestation Patient care was provided by Advanced Practice Provider:: No The physician spent face to face time with patient:: Yes Advanced Practice Provider documentation review:: Supervising physician onsite and consulted in the evaluation and care of this patient. The physician did have a face to face encounter with the patient.
--- NOTE | 2019-02-27 06:21 | Diag Imaging Result Doc PS360 ---
CHEST-1 VIEW - 02/27/2019 INDICATION: dka COMPARISON: 02/20/2019 FINDINGS: Stable right-sided dialysis catheter in good position. The lungs are clear. Heart size is normal. No pneumothorax or pleural effusion. IMPRESSION: Negative exam. Electronically signed by Bakari Orellana 02/27/2019 6:18 AM
[2019-02-27 06:28] LABS: AGAP 33; ALB/GLOB RATIO 0.9; ALBUMIN 2.9 g/dL (3.5-5.0); ALKALINE PHOSPHATASE 230 U/L (32-122); BUN 29 mg/dL (8-22); CALCIUM 9.1 mg/dL (8.8-10.2); CHLORIDE 96 mmol/L (98-107); COSMO 298; CREATININE 6.2 mg/dL (0.7-1.2); GLUCOSE 300 mg/dL (70-104); GOT 26 U/L (10-34); GPT 14 U/L (10-44); SODIUM 141 mmol/L (136-145); TCO2 12 mmol/L (25-35); TOTAL BILIRUBIN 0.25 mg/dL (0.20-1.00)
[2019-02-27] MEDS ORDERED: HUMULIN R IV ONE ×2 (06:42→08:45)
[2019-02-27] MEDS ORDERED: NS 2,000 ML MISC PRN (06:45)
[2019-02-27] MEDS ORDERED: TIGHT: 0.2 ML/HR FOR DIALYSIS MISC PRN (06:45)
[2019-02-27] MEDS ORDERED: HEPARIN IV PRN (06:45)
[2019-02-27 07:40] LABS: ACETONE SERUM MODERATE (NEGATIVE)
[2019-02-27] MEDS ORDERED: HUMULIN R 100 UNIT in NS 100 ML IV SCH (08:45)
[2019-02-27] MEDS ORDERED: D50W SYRINGE IV PRN (08:45)
[2019-02-27] MEDS ORDERED: MBX SOLUTION MT PRN (08:48)
[2019-02-27] MEDS ORDERED: SODIUM CHLORIDE 0.9% INJ SCH (09:00)
[2019-02-27 11:31] LABS: CALCIUM 8.2 mg/dL (8.8-10.2); CREATININE 6.4 mg/dL (0.7-1.2); PHOSPHORUS 3.7 mg/dL (2.7-4.5); POTASSIUM 3.5 mmol/L (3.5-5.1)
[2019-02-27] MEDS: PROTONIX IV SCH ×2 (11:41→21:14)
[2019-02-27] MEDS ORDERED: NS 2,000 ML IV ONE (12:11)
[2019-02-27] MEDS ORDERED: ASPIRIN PO STA (13:48)
[2019-02-27 14:00] LABS: CALCIUM 8.1 mg/dL (8.8-10.2); PHOSPHORUS 3.5 mg/dL (2.7-4.5); POTASSIUM 3.3 mmol/L (3.5-5.1)
[2019-02-27 14:02] LABS: CREATININE 6.5 mg/dL (0.7-1.2)
--- NOTE | 2019-02-27 14:15 | HISTORY AND PHYSICAL ---
ADDENDUM: I agree with most components of history, physical, assessment, and plan dictated in nurse practitioner's note. In brief, Mr. Broussard is a 69-year-old, man with past medical history of insulin-dependent diabetes mellitus, end-stage renal disease on Wednesday, Wednesday, Wednesday hemodialysis since 01/2019, no history of coronary artery disease, recent admission for acute cholecystitis status post laparoscopic cholecystectomy and DKA, who comes in with chief complaints of persistent nausea and vomiting since 2 to 3 days' duration. The patient was recently discharged on 02/22/2019 after about a 10-day course inside the hospital, where he was treated for DKA, acute cholecystitis requiring cholecystectomy, and pneumonia. According to the patient's , he was doing okay on the first day after discharge, but he was not able to eat anything or keep anything down, and he kept on having recurrent nausea and vomiting. She used to check his blood glucose, and had kept giving him insulin as needed. However, his condition did not improve to an extent that yesterday, he had about 10 to 15 episodes of vomiting, and he was not able to keep anything down, so she decided to bring him back to the emergency room. In the emergency room, his temperature was 97.9 degrees, pulse of 99, respiratory rate of 14, blood pressure of 105/75, and he was saturating 100% on room air. On the lab evaluation, he was found to have elevated anion gap metabolic acidosis with hyperglycemia, so the Hospitalist team was consulted for further management. At the time of my evaluation, the patient appears lethargic, but he is arousable. He does not appear in any distress. Most of the components of history were obtained from his at bedside as he has hearing impairment. The patient denies any chest pain or shortness of breath, any cough. PHYSICAL EXAMINATION: VITAL SIGNS: Temperature of 98.1 degrees, pulse 95, respiratory rate 20, blood pressure 123/55, saturating 100% on room air. HEENT: Oral cavity is dry. LUNGS: Air entry bilaterally equal. No wheeze, rhonchi, or crackles. CARDIOVASCULAR: S1, S2 normal. He does have a mild systolic murmur affecting the right second intercostal space. ABDOMEN: Soft. There are scars of recent laparoscopy with some tenderness in the hypogastric periumbilical region. Active bowel sounds. He has a right-sided chest dialysis catheter. EXTREMITIES: He has left great toe amputation. NEUROLOGIC: He is alert. He has hearing impairment. He was able to answer some of the questions. LABORATORY DATA: Hemoglobin of 10.8, platelets 337,000. PH of 7.32, pCO2 of 17, PO2 of 54. He also has carbon dioxide of 13, anion gap of 30, elevated BUN and creatinine of 6.4. His initial troponin was 241, which improved to 199. His acetone level was positive. MICROBIOLOGY: No microbiological data. IMAGING: His chest x-ray imaging did not have any acute cardiopulmonary process. ASSESSMENT AND PLAN: 1. Elevated anion gap metabolic acidosis with a component of respiratory alkalosis as well. This is likely in the setting of diabetic ketoacidosis. His recent surgery could have been the trigger, and his inability to take adequate food by mouth could have contributed to it. I will start him on intravenous fluids for 2 liters, and insulin drip according to diabetic ketoacidosis protocol, and will keep a close eye over electrolytes, and will replete according to protocol. As far as a trigger of this diabetic ketoacidosis is concerned, it could be poor oral intake from a recent surgery. I will get CT scan of the abdomen and pelvis to rule out any intra-abdominal infection, the suspicion of which is less at the moment. Based on it, I will consider starting him on antibiotics. His recurrent nausea and vomiting are likely the results or causes of his DKA. 2. Chronic kidney disease stage 5, on Wednesday, Wednesday, Wednesday hemodialysis through right-sided chest dialysis catheter. Nephrology team has been consulted. 3. Elevated troponins. He does not have a known history of coronary artery disease. He denies any chest pain. He does have normal sinus rhythm on electrocardiogram. His troponins could be in the setting of end-stage renal disease. I will monitor and trend troponins, and I will give him a 1-time dose of aspirin. 4. Others. Continue pantoprazole for his vomiting, along with Zofran, and heparin for deep venous thrombosis prophylaxis. 5. Disposition. I will continue to monitor the patient inside PVC unit. Plan of care discussed with the patient and his at bedside. All of their questions have been answered. cc: MD JULIA Leal
[2019-02-27] MEDS: HEPARIN SUBQ SCH ×2 (15:15→21:14)
[2019-02-27] MEDS ORDERED: POTASSIUM CHLORIDE 20% LIQUID PO PRN (16:54)
[2019-02-27] MEDS ORDERED: POTASSIUM CHLORIDE 40 MEQ/SWI 40 MEQ/100 ML IVPB IV PRN (16:54)
[2019-02-27] MEDS ORDERED: SODIUM PHOSPHATE 30 MMOL in D5W 250 ML IV PRN (16:54)
[2019-02-27] MEDS ORDERED: POTASSIUM CHLORIDE 20 MEQ/SWI 20 MEQ/100 ML IVPB IV PRN (16:54)
[2019-02-27] MEDS ORDERED: MAGNESIUM SULFATE 2 GM/S.W.I. 2 GM/50 ML IVPB IV PRN (16:54)
[2019-02-27] MEDS ORDERED: SODIUM BICARBONATE 8.4% 100 MEQ in STERILE WATER INJ. 500 ML IV PRN (16:54)
[2019-02-27 17:34] LABS: CALCIUM 7.9 mg/dL (8.8-10.2); CREATININE 4.4 mg/dL (0.7-1.2); PHOSPHORUS 2.6 mg/dL (2.7-4.5); POTASSIUM 3.4 mmol/L (3.5-5.1)
--- NOTE | 2019-02-27 18:15 | HISTORY AND PHYSICAL ---
CHIEF COMPLAINT: Altered mental status, high blood sugar. HPI: This is a 69-year-old gentleman with a prior history of insulin-dependent diabetes mellitus, end-stage renal disease on Wednesday, Wednesday, Wednesday hemodialysis since January 2019 who was recently admitted to [facility] for acute cholecystitis. He is status post laparoscopic cholecystectomy for acute gangrenous cholecystitis being discharged on 02/22/2019. At that time he was treated for DKA, gangrenous cholecystitis and pneumonia. According to the patient and his , he did well on the 1st day after discharge but during the night and into the next morning he began to develop nausea and vomiting which has progressed. He states that during the 2nd day after discharge his tongue became felt real big in his mouth and it started to sting and burn, any oral intake increases stinging and burning, made him gag and vomit, therefore he quit eating and drinking. The stated that she checked his blood sugars at home and was giving him insulin as needed during this time. Vomiting became persistent, prompting her to bring him back to the emergency room. On evaluation in the emergency room he was found to have an elevated anion gap metabolic acidosis with hyperglycemia. He was started on DKA protocol and hospitalists were consulted for further management. PAST MEDICAL HISTORY: 1. Diabetes mellitus. 2. End-stage renal disease with hemodialysis. PAST SURGICAL HISTORY: Cholecystectomy, left ureteroscopy. FAMILY HISTORY: Positive for diabetes mellitus, hypertension. SOCIAL HISTORY: Lives his . He denies alcohol, tobacco, or illicit drug use. ALLERGIES: No known drug allergies. HOME MEDICATIONS: A list will be obtained by the nursing staff and once verified will review and restart as appropriate. REVIEW OF SYSTEMS: Discussed with the patient with pertinent positives stated in the HPI. He denied any syncope, dizziness, chest pain or palpitations, any bloody vomitus, any black or bloody stools, any hematuria, dysuria, frequency, urgency. PHYSICAL EXAMINATION: GENERAL: This is a 69-year-old gentleman who is sitting up on the stretcher in the emergency room, drowsy but in no distress. VITAL SIGNS: Blood pressure is 100/53 with a heart rate of 90, respirations are 16, temperature is 98.1 oral with O2 saturations 100%. HEENT: Head is normocephalic, atraumatic. Mucous membranes are dry. NECK: Supple with trachea midline. CARDIOVASCULAR: Regular rate and rhythm. S1 and S2 are appreciated. He has mild systolic murmur. PULMONARY: Breath sounds are clear with no increased work of breathing noted. Chest rises and falls symmetric with respiration. GASTROINTESTINAL: Abdomen soft, nontender, he does have some periumbilical tenderness. Laparoscopic sites are clear. Bowel sounds are in all 4 quadrants. EXTREMITIES: No clubbing, cyanosis, or edema. Calves are nontender bilateral. NEUROLOGIC: He is alert, he is oriented, he is hard of hearing. LABS: WBC is 8.7 with hemoglobin 10.8, hematocrit 33.7 and platelets 337,000. Sodium is 141, potassium 5, BUN 29, creatinine 6.2 with a glucose of 300. Troponin is 241. Acetone is moderate. Chest x-ray reveals negative exam. ASSESSMENT AND PLAN: 1. Diabetic ketoacidosis. He will be admitted to ICU. We will place him on DKA protocol. 2. Chronic kidney disease stage 5 on Wednesday, Wednesday, Wednesday hemodialysis. Nephrology has been consulted. The patient will have dialysis today. 3. Elevated troponins. We will continue to trend troponins. Repeat EKG. He will be placed on telemetry. 4. Vomiting. We will continue pantoprazole. Give Zofran as needed. 5. Glossitis. Check a B12 and folate. We will give Miracle mouthwash. 6. Labs will be per DKA protocol. We will repeat CBC, CMP, mag and phos in the morning. Plan was discussed with Dr. Culp. Further treatments pending hospital course. Dictated by BRANDON Sampson for Lincoln Culp MD cc: BRANDON Sampson MD I agree with most components of history, physical, assessment and plan. A separate addendum has been dictated. [facility]
--- NOTE | 2019-02-27 21:02 | NEPHROLOGY CONSULTATION ---
DATE: 02/27/2019 REASON FOR CONSULTATION: CKD, assistance with medical management. CONSULTING PHYSICIAN: Dr. Culp. I was contacted directly by Zainab Pryor. HISTORY OF PRESENT ILLNESS: Mr. Broussard is a 69-year-old white male who is known to us from recent admissions. He has been in the hospital on 2 occasions, one in [place] where he had pneumonia and developed ischemic ATN requiring dialysis. After discharge from that facility he presented to [facility] with DKA and ultimately had diagnosis of cholecystitis and underwent laparoscopic cholecystectomy by Dr. Messina. He was discharged last week and returns to the hospital now with nausea and vomiting. His last hospitalization was complicated by DKA as listed. His evaluation on this occasion once again found him to be in DKA. No improvement in his kidney function. PAST MEDICAL HISTORY: As above. He also has a history of hypertension. HOME MEDICATIONS: Include pantoprazole and insulin. ALLERGIES: None. SOCIAL HISTORY: , lives with his . FAMILY HISTORY: Otherwise noncontributory. REVIEW OF SYSTEMS: Otherwise noncontributory. PHYSICAL EXAMINATION: Vital Signs: Blood pressure time of my exam at 0730 was 108/43, heart rate 93, respirations 14, afebrile. General: Ill-appearing man, no acute distress. Skin is warm and dry. Conjunctivae are pink. Pupils are equal. Oropharynx is dry. Neck: Neck veins are distended. Trachea is midline. Heart: Regular. No rubs. Lungs: Equal. No crackles. Abdomen: Soft, minimally tender. Bowel sounds are present. No organomegaly. Extremities: With minimal edema. No clubbing or cyanosis. Neurologic: Nonfocal. IMPRESSION: 1. Acute kidney injury without recovery. He will receive his routine dialysis. 2. Acidosis. Likely diabetic ketoacidosis overlying renal failure. 3. I have reviewed your care including your medications. No changes are required at this time. I would refrain from p.r.n. treatment of hypokalemia. cc: Stefano Jones MD
[2019-02-27 21:05] LABS: CALCIUM 8.3 mg/dL (8.8-10.2); CREATININE 3.6 mg/dL (0.7-1.2); POTASSIUM 3.4 mmol/L (3.5-5.1)
--- NOTE | 2019-02-27 21:14 | Diag Imaging Result Doc PS360 ---
EXAM: CT ABDOMEN/PELVIS W/O CONTRAST INDICATION: Recent lap choley. R/o intra-abdominal infection TECHNIQUE: This exam was performed using automated exposure control, adjustment of mA or kV according to patient size, and/or use of iterative reconstruction technique. COMPARISON: 02/16/2019 FINDINGS: There is a small right pleural effusion and a trace left effusion. There is bibasilar atelectasis, more prominent on the right. There has been a recent cholecystectomy. There is high attenuating fluid in the gallbladder fossa, likely residual postsurgical blood and Gelfoam. There is trace fluid tracking around the lower edge of the liver. No large fluid collection is identified to indicate a biliary leak. There are a couple of stable hypodense foci associated with the right hepatic lobe and left hepatic lobe that are nonspecific, possibly small cysts. There is no evidence of enhancement. There is pancreatic atrophy. The liver and adrenal glands are unremarkable. There are multiple nonobstructing intrarenal stones bilaterally that were also seen on the previous study. There are now several tiny stones in the urinary bladder lumen layering posteriorly that were not clear on the recent prior study suggesting that they have recently passed. However, there is no evidence of hydronephrosis. Urinary bladder is unremarkable, otherwise. The appendix is normal. No focal bowel wall thickening or bowel obstruction is identified. The remainder of the GI tract is essentially unremarkable. No abscess is appreciated. There is no free abdominal gas. Soft tissue anasarca is again identified similar to the previous study. IMPRESSION: 1.Recent cholecystectomy with a small amount of hyperdense fluid in the gallbladder fossa suggesting residual blood products and possibly Gelfoam. 2.Bilateral nephrolithiasis with several new small stones in the lumen of the urinary bladder that were not present on the previous study indicating interval passage. However, there is no hydronephrosis appreciated on the current study. 3.Small right effusion and trace left effusion. 4.Soft tissue anasarca. Electronically signed by Magen Wolff 02/27/2019 9:12 PM
[2019-02-27] MEDS: POTASSIUM CHLORIDE 10% LIQUID PO PRN (22:48)
[2019-02-28 01:30] LABS: POTASSIUM 3.8 mmol/L (3.5-5.1)
[2019-02-28] MEDS: POTASSIUM CHLORIDE 10% LIQUID PO PRN ×3 (01:41→09:46)
[2019-02-28 01:48] LABS: CALCIUM 7.7 mg/dL (8.8-10.2); CREATININE 3.9 mg/dL (0.7-1.2); PHOSPHORUS 2.3 mg/dL (2.7-4.5); POTASSIUM 3.8 mmol/L (3.5-5.1)
[2019-02-28 03:29] LABS: URINE SOURCE CLEAN CATCH
[2019-02-28 03:40] LABS: UR EPITHELIAL CELLS >10 /HPF (<10); URINE BACTERIA NEGATIVE /HPF; URINE RBC 20-40 /HPF (<10)
[2019-02-28 03:46] LABS: BILIRUBIN URINE NEGATIVE (NEGATIVE); BLOOD URINE LARGE (NEGATIVE); COLOR RED; GLUCOSE URINE NEGATIVE (NEGATIVE); KETONE URINE TRACE mg/dL (NEGATIVE); LEUKOCYTES URINE MODERATE (NEGATIVE); NITRITE URINE NEGATIVE (NEGATIVE); PROTEIN URINE 100 mg/dL (NEGATIVE); SP GRAVITY URINE 1.016; TURBIDITY URINE TURBID (CLEAR); UROBILINOGEN URINE NORMAL (NORMAL)
[2019-02-28] MEDS: HEPARIN SUBQ SCH ×3 (05:13→20:47)
[2019-02-28 05:28] LABS: CREATININE 4.2 mg/dL (0.7-1.2); PHOSPHORUS 2.4 mg/dL (2.7-4.5); POTASSIUM 4.3 mmol/L (3.5-5.1)
[2019-02-28 06:32] LABS: BASO# 0.01 X1000 (0.0-0.2); BASO% 0.1 % (0.0-0.8); EOS# 0.31 X1000 (0.0-0.7); HEMATOCRIT 25.3 % (42.0-52.0); HEMOGLOBIN 7.9 g/dL (14.0-18.0); IMM GRAN# 0.07 X1000 (0.0-0.04); IMM GRAN% 0.9 % (0.0-0.5); LYMPH# 1.24 X1000 (1.2-3.4); LYMPH% 15.9 % (20.5-51.1); MCH 27.1 PG (27-31); MCHC 31.2 g/dL (33-37); MCV 86.9 FL (81-99); MONO# 0.68 X1000 (0.11-0.59); MONO% 8.7 % (1.7-9.3); MPV 9.9 FL (7.4-10.4); NEUT# 5.47 X1000 (1.4-6.5); NEUT% 70.4 % (42.2-75.2); PLT 288 X1000 (130-400); RBC 2.91 XMIL (4.7-6.1); RDW 14.2 % (11.5-14.5); WBC 7.78 X1000 (4.8-10.8)
[2019-02-28 06:44] LABS: ALB/GLOB RATIO 0.8; ALBUMIN 2.1 g/dL (3.5-5.0); CALCIUM 7.8 mg/dL (8.8-10.2); CREATININE 4.2 mg/dL (0.7-1.2); MAGNESIUM 1.9 mg/dL (1.5-2.7); PHOSPHORUS 2.4 mg/dL (2.7-4.5); POTASSIUM 4.3 mmol/L (3.5-5.1); TOTAL BILIRUBIN 0.18 mg/dL (0.20-1.00); TOTAL PROTEIN 4.7 g/dL (6.3-8.3)
--- NOTE | 2019-02-28 07:49 | EKG Report ---
Test Performed on : 02/28/2019 07:06:50 AM Test Reason : Follow up ST T changes Blood Pressure : / mmHG Vent. Rate : 087 BPM Atrial Rate : 087 BPM P-R Int : 128 ms QRS Dur : 094 ms QT Int : 352 ms P-R-T Axes : 037 043 038 degrees QTc Int : 423 ms Normal sinus rhythm. Normal ECG When compared with ECG of 27-FEB-2019 02:53, (Unconfirmed) Nonspecific T wave abnormality no longer evident in Lateral leads Confirmed by Brent IPZARRO, Shabbir Patel ([id number]) on 03/02/2019 2:32:34 PM
[2019-02-28] MEDS: PROTONIX IV SCH ×2 (08:10→20:47)
[2019-02-28] MEDS: FOLIC ACID PO SCH (08:10)
[2019-02-28 09:22] LABS: CALCIUM 7.9 mg/dL (8.8-10.2); CREATININE 4.2 mg/dL (0.7-1.2); PHOSPHORUS 2.3 mg/dL (2.7-4.5); POTASSIUM 4.1 mmol/L (3.5-5.1)
--- NOTE | 2019-02-28 10:01 | NEPHROLOGY PROGRESS NOTE ---
DATE: 02/28/2019 SUBJECTIVE: Mr. Broussard is resting quietly in bed. States that he is feeling just a little bit better, though very weak. He tolerated dialysis well yesterday. OBJECTIVE: Vital Signs: Temperature 98.1 degrees, blood pressure 113/47, heart rate respirations 16. He is on 2 L nasal cannula. Last recorded saturation 100%. He has had 2050 in, 1096 out with 821 mL on dialysis. LABS: Sodium is 140, potassium 4.3, chloride 104, CO2 20, BUN 17, creatinine 4.2, glucose 141. His anion gap is 16. Calcium is 8, phosphorus 2.4, magnesium 1.9. White count 7.78, hemoglobin 7.9, hematocrit 25.3 with a platelet count of 288,000. Urinalysis yesterday indicated large blood, some protein, no leukocytes, turbid red in color. PHYSICAL EXAMINATION: General: This is a 69-year-old white male resting quietly in bed. He appears chronically ill, no acute distress. Skin: Warm and dry. HEENT: Normocephalic, atraumatic. Conjunctivae pale. Neck: Supple. Trachea midline. Chest: Tunneled catheter to the right chest wall dry and intact. Cardiovascular: Regular rate and rhythm on his monitor. Soft systolic murmur present. Lungs: Clear to auscultation bilaterally. Equal excursion on O2. Abdomen: Large, round, soft, nontender. Positive bowel sounds. Genitourinary: Not inspected. Patient has been voiding small amount with dialysis assist. Extremities: Have no edema. No clubbing or cyanosis. Neurological: He is alert and oriented to person, place and most recent events. ASSESSMENT AND PLAN: 1. BRADNI without recovery. The patient tolerated his routine dialysis treatment well yesterday and had 821 mL off. No indications for intervention today. 2. Electrolytes and acid-base balance with correction on dialysis. 3. Acidosis. This has improved. Now off IV insulin. 4. Anemia. Hemoglobin of 7.9, with no indications for intervention or transfusion. We will continue to monitor and watch. 5. Hematuria. Agree with urology consult. I would like to thank you for allowing us to follow with this patient. Dictated by BRANDON Tejada for Stefano Jones MD Face to face encounter, data reviewed, discussed with Chase Skinner on 02/28/19. I agree with the above assessment and plan of care. cc: BRANDON Tejada MD MTDD
[2019-02-28 10:14] LABS: ALLEN TEST YES; BE 0.7 mmoll (-3.0-3.0); BLOOD TYPE ARTERIAL; HCO3-(ACT) 25.5 mmoll (20.0-26.0); METHB 1.1 % (0.0-1.5); O2(CT) 12.8 mL/dL (15.0-23.0); O2HB 95.8 % (95.0-99.0); PCO2(98.6) 40 mmHg (35-45); PO2(98.6) 124 mmHg (60-100); SAMPLE BLOOD; SAO2 98.8 % (95.0-100.0); THB 9.3 g/dL (11.5-17.4); pH(98.6) 7.41 (7.35-7.45)
[2019-02-28 10:16] LABS: MODALITY CANNULA
[2019-02-28] MEDS ORDERED: NOVOLOG MIX 70/30 SUBQ ONE ×2 (10:42→10:57)
[2019-02-28] MEDS: HUMULIN R SUBQ SCH ×3 (11:07→20:47)
--- NOTE | 2019-02-28 13:55 | GASTROENTEROLOGY CONSULTATION ---
DATE: 02/28/2019 IDENTIFYING DATA: A 69-year-old male. REASON FOR CONSULT: Persistent nausea and vomiting. HISTORY OF PRESENT ILLNESS: Mr. Broussard is a 69-year-old male with a history of type 2 diabetes and end-stage renal disease on dialysis. The patient was recently admitted to the hospital on 02/15/2019, and he had a procedure done by Dr. Messina on 02/17/2019. The patient had a laparoscopic cholecystectomy with intraoperative cholangiogram. The reason for his surgery was gangrenous cholecystitis. The patient was also treated for DKA at that time. The patient was then discharged on 02/22/2019. He presented to the hospital on 02/27/2019 with complaints of altered mental status, high blood sugar, and nausea and vomiting. History was gathered from his , patient was sleeping. The patient has been having nausea and vomiting for the last 5 weeks onwards. His mentioned that she has not noticed any blood in his emesis, but once or twice noticed coffee-grounds emesis, and she has not noticed any blood in his stools, but has noticed a lot of blood in his urine. She also complained that he was having shortness of breath, but denied any chills, fever, or chest pain. PAST MEDICAL HISTORY: End-stage renal disease, insulin dependent diabetes. PAST SURGICAL HISTORY: Cholecystectomy and left ureteroscopy. FAMILY HISTORY: Mom had COPD and heart disease. Sister had lung cancer. Dad had diabetes and colon cancer. ALLERGIES: No known drug allergies. SOCIAL HISTORY: The patient is , has 2 kids. He has denied any alcohol, tobacco, or illicit drug use. HOME MEDICATIONS: The patient's home medications are Protonix 40 mg daily and NovoLog mix 70/30 at 10 units subcutaneously b.i.d. REVIEW OF SYSTEM: As per HPI. Otherwise, 12-point review of systems is negative. PHYSICAL EXAMINATION: Vital Signs: Temperature 98.2, pulse 92, respirations 16, blood pressure 141/52, oxygen saturation 100% on 2 liters nasal cannula. Patient's weight is 186 pounds. BMI is 25.3 kg/m sq. General: He is alert and oriented x3 and in no acute distress. HEENT: Pale conjunctivae. No icterus. PERRL. Neck: Supple. Lungs: Clear to auscultation. Cardiovascular: Regular rate and rhythm. Abdomen: Soft, tender, mild distention. Active bowel sounds heard in all 4 quadrants. He has got small Steri-Strips in all 4 quadrants. Extremities: No clubbing, no cyanosis. Th+1 pitting edema. 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 Neurologic: Alert oriented x3. Nonfocal. Cranial nerves 2 through 12 grossly intact. LABORATORY DATA: WBCs of 7.78, RBC 2.91, hemoglobin 7.9, hematocrit 25.3, platelet count 288,000. Sodium 141, potassium 4.1, chloride 105, carbon dioxide 24, anion gap 12, BUN 18, creatinine 4.2, glucose 133, calcium 7.9, phosphorus 2.3. Urinalysis showed protein of 100, trace of ketones, large amount of blood, moderate leukocytes. Toxicology report has shown moderate amount of acetone level. IMAGING: Abdomen and pelvis CT has shown recent cholecystectomy with small amount of hyperdense fluid in the gallbladder fossa suggesting residual blood products and possible Gelfoam. Bilateral nephrolithiasis with several new small stones in the lumen of the urinary bladder that were not present on the previous study indicating interval passage. However, there is no hydronephrosis appreciated on the current study. Small right effusion and trace left effusion. Small tissue and eschar. The patient's chest x-ray on 02/27/2019 showed negative exam. IMPRESSION AND PLAN: Nausea and vomiting Acute blood loss anemia Hematuria Nephrolithiasis ESRD IDDM2 PLAN: Mr. Broussard is a 69-year-old male who recently had a cholecystectomy, history of type 2 diabetes and end-stage renal disease. GI has been consulted for his nausea and vomiting. The patient is currently on Protonix 40 mg IV twice a day. For his nausea and vomiting, he is on Zofran. His nausea is under control. Urology has been consulted, there is blood in his urine, and his abdomen and pelvis CT has shown that he has got bilateral nephrolithiasis and several new small stones in the lumen of the urinary bladder that were not present on the previous study indicating interval passage. We will continue to monitor the patient and follow the plan of care per PCP. This plan was discussed with Dr. Smith. Thank you for your consult. Please call us for any further questions or concerns. Dictated by BRANDON Martinez for Patricio Smith MD Physician Attestation I have seen and examined the patient. I have discussed and reviewed the note by Lacey TAYLOR and agree with findings and plan as documented. If brief, Mr. Broussard is a 69 year old man with IDDM2, ESRD on HD who was admitted with DKA now resolved. GI consulted for intractable N/V. The patient has been having gross hematuria and worsening blood loss anemia. Imaging showed bilateral kidney stones and stones in the bladder. He does not complain of epigastric pain but does note lower abdominal pain. He is on PPI. I suspect his symptoms are related to his urinary issues. Will continue to treat supportively with PPI and antiemetics. Advance diet as tolerated. Will follow with you. JULIA
--- NOTE | 2019-02-28 15:27 | PROGRESS NOTE ---
DATE: 02/28/2019 SUBJECTIVE: The patient is resting comfortably in bed. No acute events noted overnight. The patient has been having gross hematuria. OBJECTIVE: Vital Signs: Temperature 98.2 degrees, blood pressure 141/52, heart rate 92, respirations 16, O2 saturation 100% on 2 L nasal cannula. Urine output 821. General: This is a chronically ill-appearing, elderly male lying in bed in no acute distress. Heart: S1, S2 normal. Regular rate and rhythm. Lungs: Clear to auscultation bilaterally. No wheezing. No rales. No rhonchi. Abdomen: Positive bowel sounds. Soft, nontender, nondistended. Extremities: No edema. No cyanosis. Neurologic: The patient is alert and oriented x3. LABORATORY DATA: White blood cell count 7.7, hemoglobin 7.9, hematocrit 25, platelets 288,000. Sodium 141, potassium 4.1, chloride 105, CO2 24, BUN 18, creatinine 4.2, glucose 139, albumin 2.1. ASSESSMENT AND PLAN: 1. Diabetic ketoacidosis. Resolved. The anion gap has closed. The patient will be transitioned to subcutaneous insulin. We will start the patient on a clear liquid diet. 2. Gross hematuria with bilateral nephrolithiasis. We will consult with the urologist for further recommendations. 3. Chronic kidney disease stage 5 D. Continue with dialysis as directed by Dr. Jones. 4. Anemia. The patient's hemoglobin and hematocrit are a little lower today. We will continue to monitor closely and transfuse p.r.n. 5. Nausea with vomiting. Continue with scheduled laxative therapy. Gastroenterology has been consulted for further recommendations. Continue on IV Protonix. 6. Hypertension. Stable. 7. Deep vein thrombosis prophylaxis. Continue on heparin. 8. We will consult physical therapy. cc: Fartun Li MD
[2019-02-28] MEDS: MYCOSTATIN POWDER TOP SCH ×2 (15:49→20:47)
[2019-02-28] MEDS ORDERED: B & O 15A SUPP PR PRN (17:00)
--- NOTE | 2019-02-28 23:43 | CONSULTATION ---
DATE OF CONSULTATION: 02/28/2019 REQUESTING PHYSICIAN: Fartun Li MD REASON FOR CONSULTATION: Kidney stones, bladder stones and gross hematuria. HISTORY OF PRESENT ILLNESS: A 69-year-old male, known to me secondary to a history of urolithiasis. He was also seen recently by me on 02/12/2019 secondary to paraphimosis. He is readmitted to the hospital with nausea and vomiting. He was admitted with hyperglycemia. In the process, he had a CT scan of the abdomen and pelvis on 02/27/2019 which revealed bilateral renal stones as well as several small stones in the bladder lumen. The patient reports that he developed mild dysuria and gross hematuria. His had a photograph on her phone of the a fairly bloody urine in the urinal. He has endstage renal disease and is on hemodialysis, He reportedly makes around 300 mL a day. He reports his urine output has not changed significantly. He specifically denies flank pain, fevers or chills. PAST MEDICAL HISTORY: Diabetes mellitus, endstage renal disease, urolithiasis known. PAST SURGICAL HISTORY: Ureteroscopy with laser lithotripsy. Cholecystectomy. ALLERGIES: No known drug allergies. FAMILY HISTORY: Positive for hypertension and diabetes. SOCIAL HISTORY: He denies tobacco, alcohol or illicit drug use. HOME MEDICATIONS: Insulin. REVIEW OF SYSTEMS: Review of 12 systems negative except as in the HPI. PHYSICAL EXAMINATION: T 97.9 degrees, P 94, BP 161/61. His urine output was recorded in an amount of 525 mL over the last day.General: Chronically ill-appearing male in no acute distress. HEENT: Normocephalic, atraumatic. Trachea is midline. No deformity is noted. Pulmonary: Bilateral breath sounds. Cardiovascular: Regular rate and rhythm. Abdomen protuberant, nontender to palpation. Nondistended. Back: No CVA tenderness. Genitourinary: Bladder is nontender to palpation. Phimotic phallus, much better than when I saw him 2 weeks ago. There is no more evidence of gangrenous tissue. I was able to see the meatus and it appeared to be patent. No discharge noted. His testes are descended bilaterally, atrophic but appropriate for age. Scrotal skin is without significant lesions. No concern of edema noted. Perineum is intact with good structural integrity. No rashes or lesions noted. Rectal: Digital rectal examination deferred at this time. Neurologic: Alert and oriented x3. Psychiatric: Appropriate mood and affect. LABORATORY DATA: His white cell count is 8000. Creatinine is 4.2. His urinalysis has moderate leukocytes and red cells, but is negative for bacteria. DIAGNOSTIC DATA: Pertinent images, CT abdomen and pelvis without contrast on 02/27/2019 revealing bilateral renal stones. By my review, there are approximately 7 stones in each kidney with somewhat greater burden on the left side size-knox, with stones ranging from 3 to 7 mm on either side. There are also several small stones in the bladder lumen that are layered in dependent position. There is no evidence of hydronephrosis. ASSESSMENT: A 69-year-old male with poorly controlled diabetes, bilateral renal stones, endstage renal disease, gross hematuria, phimosis and dysuria. I have discussed with the patient that his hematuria would warrant evaluation that we can do on an outpatient basis. We discussed that he very well may have passed some of the smaller renal stones and they could have contributed to hematuria. We discussed other differential diagnosis including malignancy. We also discussed that he would benefit from his stones being treated with extracorporeal shockwave lithotripsy, on an outpatient basis again. I have discussed with the patient and his that at that time we can perform extracorporeal shockwave lithotripsy on the left side and I would be happy to do cystoscopy with bilateral retrograde pyelograms at the same time. It does not appear that he has a urinary tract infection. PLAN: 1. As long as his hematuria does not worsen, no emergent intervention from a urologic standpoint needed. 2. Okay to use p.r.n. antispasmodics for dysuria. 3. Recommend sending urine for culture. 4. Once he is discharged he will make an appointment with me in clinic, at which point we will set him up for extracorporeal shockwave lithotripsy for his left kidney stones as well as cystoscopy and bilateral retrograde pyelograms to complete hematuria evaluation. 5. Please call with questions. cc: Miguel Ángel Gomez MD
[2019-03-01] MEDS: ZOFRAN IV PRN (00:20)
[2019-03-01] MEDS: TYLENOL PO PRN ×2 (00:20→21:17)
[2019-03-01] MEDS ORDERED: SODIUM CHLORIDE 0.9% 10 ML ONE ×2 (06:04→09:36)
[2019-03-01] MEDS ORDERED: HEPARIN IV PRN (06:21)
[2019-03-01] MEDS ORDERED: NS 2,000 ML MISC PRN (06:21)
[2019-03-01] MEDS ORDERED: TIGHT: 0.2 ML/HR FOR DIALYSIS MISC PRN (06:21)
[2019-03-01 06:23] LABS: BASO# 0.02 X1000 (0.0-0.2); BASO% 0.3 % (0.0-0.8); EOS# 0.39 X1000 (0.0-0.7); EOS% 6.8 % (0.0-10.0); HEMATOCRIT 26.2 % (42.0-52.0); HEMOGLOBIN 8.1 g/dL (14.0-18.0); IMM GRAN# 0.05 X1000 (0.0-0.04); IMM GRAN% 0.9 % (0.0-0.5); LYMPH# 1.19 X1000 (1.2-3.4); LYMPH% 20.8 % (20.5-51.1); MCH 27.3 PG (27-31); MCHC 30.9 g/dL (33-37); MCV 88.2 FL (81-99); MONO# 0.69 X1000 (0.11-0.59); MONO% 12.1 % (1.7-9.3); NEUT# 3.38 X1000 (1.4-6.5); NEUT% 59.1 % (42.2-75.2); PLT 270 X1000 (130-400); RBC 2.97 XMIL (4.7-6.1); RDW 14.4 % (11.5-14.5); WBC 5.72 X1000 (4.8-10.8)
[2019-03-01] MEDS: HUMULIN R SUBQ SCH ×4 (06:38→21:15)
[2019-03-01 06:50] LABS: ALBUMIN 2.1 g/dL (3.5-5.0); CALCIUM 8.3 mg/dL (8.8-10.2); CREATININE 4.9 mg/dL (0.7-1.2); PHOSPHORUS 2.8 mg/dL (2.7-4.5); POTASSIUM 4.5 mmol/L (3.5-5.1)
[2019-03-01] MEDS: FOLIC ACID PO SCH (08:30)
[2019-03-01] MEDS: PROTONIX IV SCH ×2 (08:30→21:17)
[2019-03-01] MEDS: MYCOSTATIN POWDER TOP SCH ×2 (08:31→21:16)
[2019-03-01] MEDS ORDERED: HUMULIN 70/30 SUBQ SCH (09:00)
[2019-03-01] MEDS ORDERED: NOVOLOG MIX 70/30 SUBQ SCH (09:00)
[2019-03-01] MEDS: HEPARIN SUBQ SCH (09:08)
--- NOTE | 2019-03-01 11:16 | NEPHROLOGY PROGRESS NOTE ---
DATE: 03/01/2019 Date Seen: 03/01/2019 Time Seen: 0640 SUBJECTIVE: Mr. Broussard states that he is just not feeling well today. His states that he has been lethargic, seen by Dr. Gomez yesterday evening for hematuria. OBJECTIVE: Vital Signs: Temperature 97.9 degrees, blood pressure 130/51, heart rate 88, respirations 20. He is on 2 L nasal cannula, last recorded saturation 100%. He has had 340 in. He has had 100 out to void. LABORATORY DATA: Sodium 138, potassium 4.5 chloride 105, CO2 21, BUN 22, creatinine 4.9, glucose is 212. His anion gap is 12, calcium 8.3, phosphorus 2.8, albumin is 2.1. White count 5.72, hemoglobin 8.1, hematocrit 26.2 with a platelet count of 270,000. PHYSICAL EXAMINATION: General: This is a 69-year-old white male. He is resting quietly in bed. He appears chronically ill, in no acute distress. Skin: Warm and dry. HEENT: Normocephalic, atraumatic. Conjunctiva is pale pink. He has EASTON. Mucous membranes are dry. Neck: Supple, trachea midline. No evidence of JVD. Cardiovascular: Regular rate and rhythm. He has a soft systolic murmur with an isolated PAC on his monitor. Lungs: Clear to auscultation anterior, equal excursion on O2. Abdomen: Large, round, soft, nontender. Positive bowel sounds. Genitourinary: Not inspected. Patient has been voiding small amounts with dialysis assist. It appears hematuric in the urinal. Integumentary: Patient has a tunneled dialysis catheter to the right chest wall. This is dry and intact. Extremities: Have 1+ edema. No clubbing or cyanosis. Neurological: He is alert to person and to place. ASSESSMENT AND PLAN: 1. Acute kidney injury with chronic kidney disease. We will place him on a 2 K bath. He is to dialyze for 3.5 hours on. We will attempt to pull patient to his last inpatient dry weight. 2. Electrolytes and acid-base balance with correction on dialysis. 3. Anemia. Hemoglobin has improved slightly from 7.9 to 8.1. 4. Malnutrition. Patient has an albumin of 2.1. We will start diabetic IDPN while on dialysis treatments to assist with his nutritional status. 5. Could he have abdominal angina? I would like to thank you for allowing us to follow with this patient. Dictated by BRANDON Tejada for Stefano Jones MD Face to face encounter, data reviewed, discussed with Chase Skinner on 03/01/19. I agree with the above assessment and plan of care. cc: BRANDON Tejada MD [facility]
[2019-03-01 12:11] LABS: URINE SOURCE CLEAN CATCH
[2019-03-01 12:48] LABS: GLUCOSE URINE NEGATIVE (NEGATIVE)
[2019-03-01 12:49] LABS: BILIRUBIN URINE LARGE (NEGATIVE); BLOOD URINE LARGE (NEGATIVE); COLOR RED; KETONE URINE 20 mg/dL (NEGATIVE); LEUKOCYTES URINE LARGE (NEGATIVE); NITRITE URINE POSITIVE (NEGATIVE); PROTEIN URINE 300 mg/dL (NEGATIVE); UROBILINOGEN URINE 2 mg/dL (NORMAL)
[2019-03-01 12:50] LABS: TURBIDITY URINE TURBID (CLEAR); UR EPITHELIAL CELLS <10 /HPF (<10); URINE BACTERIA 1+ /HPF; URINE RBC TNTC /HPF (<10); URINE WBC 20-40 /HPF (<10)
--- NOTE | 2019-03-01 14:50 | GASTROENTEROLOGY PROGRESS NOTE ---
DATE: 03/01/2019 SUBJECTIVE: Mr. Broussard is a 69-year-old male resting in bed. The patient mentioned not feeling well. He has been complaining that he has pain when he is urinating and noticing blood in his urine. The patient is still c/o nausea, vomiting and abdominal pain in the lower quadrant. He rated his pain as 8/10 and described it as sharp pain. OBJECTIVE: Vital signs: Temperature 97.6, pulse of 86, respirations 18, blood pressure 121/57, oxygen saturation 97% on room air. His weight is 187 pounds. BMI is 25.4 kg/m2. General: He is alert, oriented x2, lethargic and in no acute distress. HEENT: Pale conjunctiva, no icterus. EASTON. Neck: Supple. Lungs: Clear to auscultation. Cardiovascular: Regular rate and rhythm. Abdomen: Soft, tender in the lower quadrant, mildly distention. Active bowel sounds in all 4 quadrants. The patient has got small Steri-Strips in all 4 quadrants. Extremities: No clubbing, no cyanosis, 1+ pitting edema bilaterally. The patient has a left big toe amputed and the tip of the 3rd toe is necrotic. Neurological: He is alert, oriented x2. LABORATORY DATA: WBCs 5.72, RBC 0.97, hemoglobin 8.1, hematocrit 26.2 platelet count is 270. Sodium 138, potassium 4.5, chloride 105, carbon dioxide 21, anion gap 12. BUN 22, creatinine 4.9, glucose 212, calcium 8.3, phosphorus 2.8, albumin 2.1. The patient's urinalysis today showed 300 of protein, 20 of ketones, large amount of blood, positive nitrates, large amount of bilirubin and large amount of leukocytes. The patient's urine culture is pending. IMAGING: Abdominal U/s on 02/27/2019 showed recent cholecystectomy with small amount of hyperdense fluid in the gallbladder fossa suggesting residual blood products and possibly gelfoam. Bilateral nephrolithiasis with several new small stones in the lumen of the urinary bladder, but no hydronephrosis. Small right effusion and trace left effusion. Soft tissue anasarca. Chest X-ray showed negative exam. IMPRESSION AND PLAN: 1. Nausea and vomiting. 2. Anemia. 3. Gross hematuria with bilateral nephrolithiasis. 4. Cholecystitis status post laparoscopic cholecystectomy. 5. End-stage renal disease - on dialysis 6. Diabetes type 2. PLAN: Mr. Broussard is a 69-year-old male, who recently had a cholecystectomy. GI is following him for his nausea and vomiting. The patient is on antiemetic Zofran 4 mg IV for his nausea and vomiting. He is on Protonix 40 mg IV twice a day. Dr. Sullivan has been consulted and he will be doing the cystoscopy and bilateral retrogrades with biopsies if needed to remove the bladder stones tomorrow. The patient's hemoglobin and hematocrit today is 8.1 and 26.2. It has slightly trended upwards. We will continue to monitor the patient and if his N/V worsens, will plan to do an EGD. This plan was discussed with Dr. Smith. Please call us for any further questions or concerns. Dictated by BRANDON Martinez for Patricio Smith MD Physician Attestation I have seen and examined the patient. I have discussed and reviewed the note by Lacey TAYLOR and agree with findings and plan as documented. If brief, Mr. Broussard is a 69 year old man with IDDM2, ESRD on HD who was admitted with DKA now resolved. GI consulted for intractable N/V. The patient has been having gross hematuria and worsening blood loss anemia. Imaging showed bilateral kidney stones and stones in the bladder. He does not complain of epigastric pain but does note lower abdominal pain. He is on PPI. I suspect his symptoms are related to his urinary issues. Urology is planning cystoscopy tomorrow. Will continue to treat supportively with PPI and antiemetics. Advance diet as tolerated. Will follow with you. MTDD
[2019-03-01] MEDS: D50W 250 ML, AMINOSYN 15% 500 ML, LIPOSYN 20% 250 ML MISC SCH ×3 (16:00)
[2019-03-01] MEDS ORDERED: MAXIPIME 1 GM in NS 50 ML IV ONE (17:00)
[2019-03-01] MEDS ORDERED: MAXIPIME 1 GM in NS 50 ML IV SCH (17:00)
[2019-03-01] MEDS: HUMULIN 70/30 SUBQ SCH (21:14)
--- NOTE | 2019-03-01 21:41 | PROGRESS NOTE ---
DATE: 03/01/2019 SUBJECTIVE: The patient states that he does not feel good today. He continues to have gross hematuria and lower abdominal pain. OBJECTIVE: Vital Signs: Temperature 97.9 degrees, blood pressure 163/72, heart rate 97, respirations 19, O2 saturations 98% on room air. General: This is a chronically ill-appearing elderly male lying in bed in no acute distress. Heart: S1, S2 normal. Regular rate and rhythm. Lungs: Clear to auscultation bilaterally. Abdomen: Positive bowel sounds. Soft. Extremities: No edema. No cyanosis. Neurologic: The patient is alert and oriented x3. LABS: White blood cell count 5.7, hemoglobin 8.1, hematocrit 26, platelets 270,000. Sodium 138, potassium 4.5, chloride 105, CO2 21, BUN 22, creatinine 4.9, glucose 212, albumin 2.1. ASSESSMENT AND PLAN: 1. Gross hematuria with bilateral nephrolithiasis. The patient is scheduled to undergo a cystoscopy tomorrow with Dr. Sullivan. 2. Diabetic ketoacidosis. Resolved. 3. Insulin-dependent diabetes mellitus. We will adjust the patient's Humulin 70/30 dosage. 4. Chronic kidney disease stage 5D. 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 5. Urinary tract infection. The patient is on cefepime after each dialysis session. We will follow up on the urine culture results. 6. Severe protein-calorie malnutrition. The patient is receiving intradialytic parenteral nutrition during dialysis. 7. Hypertension. Continue on the current antihypertensive regimen. 8. Anemia. This is likely secondary to the patient's underlying hematuria. We will continue to monitor the hemoglobin and hematocrit closely and transfuse p.r.n. 9. Nausea with poor appetite. The patient is currently on a clear liquid diet. Gastroenterology is following. 10. Deep vein thrombosis prophylaxis. We will hold the heparin at this time. cc: MD JULIA Cardoso
[2019-03-02] MEDS: HUMULIN R SUBQ SCH ×4 (06:00→21:05)
[2019-03-02] MEDS: SODIUM CHLORIDE 0.9% 10 ML ONE (06:00)
[2019-03-02 06:36] LABS: HEMATOCRIT 26.4 % (42.0-52.0); HEMOGLOBIN 8.4 g/dL (14.0-18.0); MCH 28.2 PG (27-31); MCHC 31.8 g/dL (33-37); MCV 88.6 FL (81-99); MPV 9.7 FL (7.4-10.4); RBC 2.98 XMIL (4.7-6.1); RDW 14.4 % (11.5-14.5); WBC 6.2 X1000 (4.8-10.8)
[2019-03-02 06:49] LABS: IRON SATURATION 22 %; TIBC 118 ug/dL; TOTAL IRON 26 ug/dL (53-167); UNBOUND IRON 92 ug/dL (112-346)
[2019-03-02 07:10] LABS: CALCIUM 8.4 mg/dL (8.8-10.2); CREATININE 3.4 mg/dL (0.7-1.2); PHOSPHORUS 2.2 mg/dL (2.7-4.5); POTASSIUM 3.6 mmol/L (3.5-5.1)
[2019-03-02 07:43] LABS: FERRITIN 517 ng/mL (30-400)
[2019-03-02] MEDS: FOLIC ACID PO SCH (09:39)
[2019-03-02] MEDS: HUMULIN 70/30 SUBQ SCH ×3 (09:39→21:16)
[2019-03-02] MEDS: MYCOSTATIN POWDER TOP SCH ×2 (09:41→21:00)
[2019-03-02] MEDS: PROTONIX IV SCH ×2 (09:41→20:59)
--- NOTE | 2019-03-02 12:27 | GASTROENTEROLOGY PROGRESS NOTE ---
DATE: 03/02/2019 SUBJECTIVE: Mr. Broussard is a 69-year-old, male resting in bed. The patient has denied any nausea or vomiting today, but he is still complaining of abdominal pain in the lower quadrant. The patient is waiting to go for his cystoscopy. He is currently n.p.o. OBJECTIVE: Vital Signs: Temperature 97.9 degrees, pulse 94, respirations 12, blood pressure 161/71, oxygen saturation is 98% on room air. The patient's weight is 191 pounds, BMI is 26.0 kg/m2. General: He is alert and oriented x2, and in no acute distress. HEENT: Pale conjunctivae. No icterus. PERRL. Neck: Supple. Lungs: Clear to auscultation. Cardiovascular: The patient is tachycardic. Abdomen: Mildly distended, soft, tender in the lower quadrant. Active bowel sounds heard in all 4 quadrants. Has steri strips in all four quadrants. Extremities: No clubbing, no cyanosis. 1+ pitting edema bilaterally. The patient has a left big toe amputated, and his tip of the third toe is necrotic. Neurologic: Alert and oriented x2. LABORATORY DATA: WBC is 6.20, RBC is 2.98, hemoglobin 8.4, hematocrit 26.4, platelet count 257,000. Sodium 141, potassium 3.6, chloride 109, carbon dioxide 25, anion gap 7, BUN 14, creatinine 3.4, glucose 84, calcium 8.4. Phosphorus 2.2. Albumin 2.0. The patient's urinalysis yesterday showed he had protein of 300, ketones of 20, large amount of blood, positive for nitrate, large amount of bilirubin, and large amount of leukocytes. IMPRESSION AND PLAN: Nausea and vomiting ESRD on dialysis Diabetes type II Hematuria Anemia PLAN: Mr. Broussard is a 69-year-old, male, who recently had a cholecystectomy. GI is following him for his nausea and vomiting. The patient is currently n.p.o. He is on antiemetic, Zofran, for his nausea and vomiting. The patient is receiving Protonix 40 mg IV twice a day. He is on antibiotic, Maxipime. The patient's hemoglobin today was 8.4 and hematocrit is 26.4. It has been slightly trending upwards. The patient is still having blood in his urine. Urology is going to perform a cystoscopy today. We will continue to monitor the patient and follow the plan of care per PCP and urology. This plan was discussed with Dr. Berkowitz. Please call us for any further questions or concerns. Dictated by BRANDON Martinez for Doug Berkowitz MD cc: Doug Berkowitz MD I have seen and examined the patient myself and I agree with the above plan of care. Please call us with any further questions or concerns. JULIA
--- NOTE | 2019-03-02 13:54 | NEPHROLOGY PROGRESS NOTE ---
DATE: 03/02/2019 DATE AND TIME OF EXAM: 03/02/2019 at 0645 hours. SUBJECTIVE: Mr. Broussard is resting quietly in bed. He has just been cleaned up and had his bath performed this morning. He is scheduled for a cystogram with Dr. Sullivan. He remains n.p.o. OBJECTIVE: Vital Signs: Temperature 97.7 degrees, blood pressure 141/68, heart rate 87, respirations 18. He is on room air; last recorded saturation 96%. He has had 300 in, 2176 out with 350 mL of that to void, the rest per dialysis. LABS: Sodium is 141, potassium 3.6, chloride 109, CO2 25. BUN 14, creatinine 3.4, glucose is 84. His anion gap is 7. His calcium is 8.4, phosphorus is 2.2. His albumin is 2. White count 6.2, hemoglobin 8.4, hematocrit 26.4 with a platelet count of 257. The patient has a total iron binding capacity of 118, total saturation of 22, with a ferritin of 517, a folate of 2.3, B 12 636. PHYSICAL EXAM: General: This is a 69-year-old white male resting quietly in bed. He is more awake and alert today. states that he has been feeling just a little bit better, having a conversation with her yesterday evening. HEENT: Normocephalic, atraumatic. Conjunctiva is pale pink. He has EASTON. Mucous membranes are dry. Neck: Supple. Trachea midline. No evidence of JVD. Cardiovascular: Regular rate and rhythm. Soft systolic murmur. Isolated PACs on the monitor. Lungs: Clear to auscultation anterior, equal excursion on O2. Abdomen: Large, round, soft, nontender. Positive bowel sounds. Genitourinary: Not inspected. Patient continues with hematuria to his urinal. Dr. Sullivan is to take patient for cystoscope today. He remains n.p.o. Integumentary: Tunnel dialysis catheter to the right chest wall, dry and intact. Extremities: Have 1+ lower extremity edema. No clubbing or cyanosis. Neurological: Alert and oriented x3. ASSESSMENT AND PLAN: 1. Acute kidney injury with chronic kidney disease. The patient dialyzed yesterday per his dialysis tunnel catheter. No indications for intervention today. We will plan for dialysis again in the morning. 2. Electrolytes and acid-base balance. These are acceptable with correction on dialysis. 3. Anemia. This remains low, but stable. 4. Malnutrition. Patient had been started on intradialytic parenteral nutrition on dialysis treatments while he is in the hospital. Encouraged to take supplements as possible. I would like to thank you for allowing us to follow with this patient. Dictated by BRANDON Tejada for Stefano Jones MD Face to face encounter, data reviewed, discussed with Chase Skinner on 03/02/19. I agree with the above assessment and plan of care. cc: BRANDON Tejada MD [facility]
[2019-03-02] MEDS ORDERED: XYLOCAINE-MPF 2% ONE ×2 (14:59→17:20)
[2019-03-02] MEDS ORDERED: DIPRIVAN 1% ONE ×2 (14:59→17:19)
[2019-03-02] MEDS ORDERED: FENTANYL ONE ×2 (15:02→17:19)
--- NOTE | 2019-03-02 15:17 | PROGRESS NOTE ---
DATE: 03/02/2019 SUBJECTIVE: The patient is resting comfortably in bed. He continues to have hematuria. OBJECTIVE: Vital Signs: Temperature 97.9 degrees, blood pressure 161/71, heart rate 94, respirations 12, O2 saturation 98% on room air. General: A chronically ill- appearing elderly male lying in bed in no acute distress. Heart: S1, S2 normal. Regular rate and rhythm. Lungs: Equal air entry bilaterally. No wheezing. No rales. No rhonchi. Abdomen: Positive bowel sounds. Soft, nontender, nondistended. Extremities: No edema. No cyanosis. Neurologic: The patient is alert and oriented x3. LABORATORY DATA: White blood cell count 6.2, hemoglobin 8.4, hematocrit 26, platelets 257,000. Sodium 141, potassium 3.6, chloride 109, CO2 25, BUN 14, creatinine 3.4, glucose 130, folate 2.3. ASSESSMENT AND PLAN: 1. Gross hematuria with bilateral nephrolithiasis. The patient is scheduled for cystoscopy today. We will await the results of the scheduled procedure. 2. Diabetic ketoacidosis. Resolved. 3. Insulin-dependent diabetes mellitus. Continue on current insulin regimen. 4. Chronic kidney disease stage 5D. 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 5. Hypertension. Continue on the current antihypertensive regimen. 6. Severe protein calorie malnutrition. Continue with IDPN during dialysis. 7. Folate deficiency. Continue on folic acid replacement. 8. Anemia. Stable. 9. Nausea with poor appetite. Continue to monitor closely for improvement. Gastroenterology is following. 10. Deep vein thrombosis prophylaxis. Continue with sequential compression devices. Heparin is on hold. cc: MD JULIA Cardoso
[2019-03-02] MEDS ORDERED: NEOSPORIN G.U. IRRIGANT ONE (17:42)
[2019-03-02] MEDS ORDERED: ZOFRAN ONE (17:54)
[2019-03-02] MEDS ORDERED: NEO-SYNEPHRINE ONE (18:11)
[2019-03-02] MEDS ORDERED: SODIUM CHLORIDE 0.9% 10 ML ONE (18:11)
[2019-03-03] MEDS ORDERED: SODIUM CHLORIDE 0.9% 10 ML ONE ×2 (06:12→10:10)
--- NOTE | 2019-03-03 06:29 | OPERATIVE NOTE ---
PROCEDURE DATE: 03/02/2019 SURGEON: Lars Sullivan MD PREOPERATIVE DIAGNOSIS: End-stage renal disease on hemodialysis and hematuria, bilateral renal stones and bladder stones. POSTOPERATIVE DIAGNOSIS: End-stage renal disease on hemodialysis and hematuria, bilateral renal stones and bladder stones. PROCEDURES PERFORMED: 1. Cystoscopic exam with bilateral retrograde ureteral pyelograms. 2. Cystolitholapaxy. 3. Cold cup bladder biopsies with fulguration. ANESTHESIA: General endotracheal. FINDINGS: Cystoscopic exam: Urethra greater than 22-1/2 [place] without stricture. Prostate - coapting lateral lobes, elevated bladder neck, length approximately 4 cm. Bladder-normal ureteral orifices bilaterally. The efflux was not seen coming from the left ureteral orifice. A small amount from the right that was clear. There were bladder stones, grade 1 trabeculations. No papillary lesions. The mucosa appeared thickened and red when the cystoscope was first put in. There was bloody efflux, some of this was obtained and sent to Pathology for culture. Left retrograde ureteral pyelogram normal without filling defect. Right retrograde ureteral pyelogram normal without filling defect. Rectal exam revealed a prostate of about 50 g, smooth, and symmetric. INDICATIONS FOR PROCEDURE: This 69-year-old male with end-stage renal disease on hemodialysis. He has a several week history of hematuria. His CT stone search revealed small bilateral renal stones and several stones in his bladder. DESCRIPTION OF PROCEDURE: After informed consent was obtained from the patient and family and him receiving IV antibiotics, (routine after dialysis) he was taken to the main OR cystoscopy room, and placed in the supine position. General endotracheal anesthesia was achieved. He was then placed in the low lithotomy position, and prepped and draped in the usual sterile fashion for cystoscopic exam. A 21-[place] sheath cystoscope was passed through the patient's urethra, prostate, and bladder with findings as noted above. Some of the initial efflux from the bladder was sent to Pathology for culture. The efflux was bloody. This was irrigated out until the bladder was clear. An 8-[place] cone-tipped catheter was passed through the cystoscope, engaged in the left ureteral orifice but contrast would not inject into the ureter. The 8-[place] cone-tipped catheter was removed. A 0.035 ZIPwire was passed through the cystoscope, engaged in the left ureteral orifice, and advanced up into the ureter. A 5-[place] open ended ureteral catheter was advanced over the ZIPwire and up into the distal ureter. The wire was removed. Contrast was injected. Again, no filling defects were seen in the left collecting system. The open-ended ureteral catheter was removed. An 8-[place] cone-tipped catheter was returned to the bladder, and engaged in the right ureteral orifice without difficulty. Contrast was injected. Right side was normal as well. The 8-[place] cone-tipped catheter was removed. The cold cup biopsy forceps were placed and cold cup biopsies of the bladder were taken. Three biopsies were taken from the posterior wall of this thickened red mucosa that was diffuse throughout the bladder, and sent to Pathology in 1 container. The Bugbee electrode was placed and hemostasis was achieved. The stones were able to be broken by just pushing the cystoscope against the stones, and the larger ones fractured. The Kusum syringe was then used to irrigate the stone fragments from the bladder. A portion was sent to Pathology. The 30 degree lens was returned to the bladder, and no further stones were visualized. There were no bleeding areas from the biopsy sites. The bladder was drained. Cystoscope was removed. Rectal exam performed. He tolerated the procedure well. Estimated blood loss 1 mL. He was taken to the recovery room, and extubated in good condition. cc: Lars Sullivan MD
[2019-03-03 06:30] LABS: HEMATOCRIT 25.7 % (42.0-52.0); HEMOGLOBIN 7.9 g/dL (14.0-18.0); MCH 27.2 PG (27-31); MCHC 30.7 g/dL (33-37); MCV 88.6 FL (81-99); MPV 10.2 FL (7.4-10.4); RBC 2.9 XMIL (4.7-6.1); RDW 14.3 % (11.5-14.5); WBC 6.5 X1000 (4.8-10.8)
[2019-03-03] MEDS: HUMULIN R SUBQ SCH ×4 (06:37→21:07)
[2019-03-03 06:52] LABS: ALBUMIN 2.2 g/dL (3.5-5.0); CALCIUM 8.4 mg/dL (8.8-10.2); CREATININE 4.4 mg/dL (0.7-1.2); PHOSPHORUS 3.3 mg/dL (2.7-4.5); POTASSIUM 4.4 mmol/L (3.5-5.1)
[2019-03-03] MEDS ORDERED: NS 2,000 ML MISC PRN (07:28)
[2019-03-03] MEDS ORDERED: TIGHT: 0.2 ML/HR FOR DIALYSIS MISC PRN (07:28)
[2019-03-03] MEDS ORDERED: HEPARIN IV PRN (07:28)
[2019-03-03] MEDS: PROTONIX IV SCH ×2 (09:46→21:06)
[2019-03-03] MEDS: HUMULIN 70/30 SUBQ SCH (09:48)
[2019-03-03] MEDS: FOLIC ACID PO SCH (09:48)
[2019-03-03] MEDS: MYCOSTATIN POWDER TOP SCH ×2 (09:49→21:13)
--- NOTE | 2019-03-03 10:30 | Diag Imaging Result Doc PS360 ---
EXAM: RETROGRADES 2 OR 3 FILMS HISTORY: HEMATURIA, BLADDER STONES TECHNIQUE: 43 films COMPARISON: None. FINDINGS: Early film show an attempt at a left retrograde. A wire was then placed in the left ureter and then removed. There are several filling defects in the lower left ureter. Right retrograde flow. No obstruction to retrograde flow. No filling defects or strictures. IMPRESSION: Lower left ureteral filling defects representing small stones or air bubbles Electronically signed by Rosendo Oro 03/03/2019 10:28 AM
[2019-03-03] MEDS: ZOFRAN IV PRN ×2 (11:05→16:49)
--- NOTE | 2019-03-03 11:11 | Diag Imaging Result Doc PS360 ---
EXAM: ABDOMEN FLAT/UPRIGHT HISTORY: pain/constipation TECHNIQUE: Two views COMPARISON: None. FINDINGS: No free air beneath the diaphragm. There are surgical clips in the right upper quadrant. No bowel obstruction. No organomegaly. There are multiple calcifications overlying each kidney. Prominent atherosclerosis. There are pelvic phleboliths. IMPRESSION: No significant constipation. There are bilateral renal stones. Electronically signed by Rosendo Oro 03/03/2019 11:08 AM
[2019-03-03] MEDS: D50W 250 ML, AMINOSYN 15% 500 ML, LIPOSYN 20% 250 ML MISC SCH ×3 (12:00)
--- NOTE | 2019-03-03 14:44 | GASTROENTEROLOGY PROGRESS NOTE ---
DATE: 03/03/2019 SUBJECTIVE: Mr. Broussard is a 69-year-old male resting in bed. The patient denies any vomiting today but he still feels nauseated. He has been started on a diabetic diet, but was not able to tolerate his diet well. The patient is also complaining of abdominal pain in the lower quadrant and mentioned that it was sore. OBJECTIVE: Vital Signs: Temperature 98 degrees, pulse 90, respirations 18, blood pressure 122/59, and oxygen saturation 98% on 2 L nasal cannula. The patient's weight is 187 pounds. BMI is 25.5 kg/m2. General: He is alert and oriented x2, and in no acute distress. HEENT: Pale conjunctivae. No icterus. PERRL. Neck: Supple. Lungs: Clear to auscultation. Cardiovascular: Regular rate and rhythm. Abdomen: Mildly distended. Soft. Tender in the lower quadrant. Active bowel sounds heard in all 4 quadrants. The patient does have Steri-Strips in all 4 quadrants. Extremities: No clubbing, no cyanosis. 1+ pitting edema in the lower extremities bilaterally. His left big toe amputated, and the tip of his 3rd toe is necrotic. Neurological: Alert and oriented x2. LABORATORY DATA: WBCs 6.50, RBCs 2.90, hemoglobin 7.9, hematocrit is 25.7, and platelet count is 260,000. Sodium 140, potassium 4.4, chloride 105, carbon dioxide 21, anion gap 14, BUN 26, creatinine 4.4, glucose 227, calcium 8.4, phosphorus 3.3, and albumin is 2.2. IMAGING: The patient's abdominal x-ray today showed no significant constipation. There are bilateral renal stone. IMPRESSION AND PLAN: Nausea and vomiting ESRD - on dialysis Hematuria Anemia Nausea and vomiting Abdominal pain PLAN: Mr. Broussard is a 69-year-old male who recently had a cholecystectomy. GI is following him for his nausea and vomiting. The patient's vomiting has been under control, but he is still nauseated. He is on antiemetics Zofran every 4 hours. The patient has been complaining of having urine in his blood. His hemoglobin today is 7.9 and 25.7. The patient had a cystoscopy exam with bilateral retrograde ureteral pyelogram with cystolitholapaxy, and cold cup bladder biopsy with fulguration done yesterday. We plan to do an EGD on Wednesday to find out the cause of his nausea and vomiting if no improvement over weekend. We have discussed the risks, benefits, and alternatives of the procedure to the patient. The patient is currently on Protonix 40 mg IV q.12 hours. He is on Clinimix at 333 mL for his nutrition. We will continue to monitor the patient. Further plan of care will be based on the EGD findings. This plan was discussed with Dr. Smith. Please call us for any further questions or concerns. Dictated by BRANDON Martinez for Patricio Smith MD Physician Attestation I have seen and examined the patient. I have discussed and reviewed the note by Lacey TAYLOR and agree with findings and plan as documented. If brief, Mr. Broussard is a 69 year old man with IDDM2, ESRD on HD who was admitted with DKA now resolved. GI consulted for intractable N/V. The patient has been having gross hematuria and worsening blood loss anemia. Imaging showed bilateral kidney stones and stones in the bladder. He is s/p cystoscopy with retrograde pyelogram and cystolitholapaxy, and biopsy with fulguration. He continues to have lower abdominal pain, nausea, and difficulty tolerating PO. Recommend switching antiemetics, continue PPI BID, and diet as tolerated. If no improvement over weekend, then will plan diagnostic EGD Wednesday. Will follow with you. MTDD
[2019-03-03] MEDS ORDERED: CATHFLO IV ONE (14:45)
[2019-03-03] MEDS ORDERED: STERILE WATER INJ. INJ ONE (14:45)
[2019-03-03] MEDS ORDERED: MAXIPIME 1 GM in NS 50 ML IV ONE (17:00)
--- NOTE | 2019-03-03 17:27 | NEPHROLOGY PROGRESS NOTE ---
DATE: 03/03/2019 SUBJECTIVE: He is sleeping but arousable. No shortness of breath. He remains anorexic with nausea. PHYSICAL EXAMINATION: Vital Signs: Blood pressure 122/59, heart rate 90 respiration 18, afebrile. General: As above. Skin: Warm and dry. Somewhat pale. Conjunctivae are pink. Neck: Neck veins are not distended. Heart: Regular. No gallops. Lungs: Equal. No crackles. Abdomen: Soft, nontender. Bowel sounds present. Extremities: No edema clubbing or cyanosis. IMPRESSION: 1. Acute kidney injury. No recovery. He will have his routine dialysis today. Electrolytes/acid base in target. 2. Anemia. Hemoglobin is stable over the last 4 days. 3. Hematuria. Cystoscopy without other new findings. Biopsies were performed. 4. Nausea, vomiting, anorexia. His was opposed to a feeding tube. We discussed this and she is more open to the idea. She would like to give him 1 more day to try to eat and we will place a NG feeding tube. 5. Nausea and vomiting. Urologic evaluation was negative so okay to proceed with gastrointestinal evaluation from my perspective. CT was negative. We will order a gastric emptying study as we anticipate Dr. Smith's recommendations. cc: Stefano Jones MD
--- NOTE | 2019-03-03 20:37 | PROGRESS NOTE ---
DATE: 03/03/2019 SUBJECTIVE: The patient is resting comfortably in bed. He has not been eating well. He still continues to complain of nausea. His reports that he is still having hematuria. OBJECTIVE: Vital Signs: Temperature 98.6 degrees, blood pressure 148/60, heart rate 92, respirations 18, O2 saturations 100% on 2 L nasal cannula. General: This is a chronically ill- appearing elderly male lying in bed in no acute distress. Heart: S1, S2 normal. Regular rate and rhythm. Lungs: Equal air entry bilaterally. No wheezing. No rales. No rhonchi. Abdomen: Positive bowel sounds. Soft, nontender, nondistended. Extremities: No edema. No cyanosis. Neurologic: The patient is alert and oriented x3. LABORATORIES: White blood cell count 6.5, hemoglobin 7.9, hematocrit 25, platelets 265,000, sodium 140, potassium 4.4, chloride 105, CO2 21, BUN 26, creatinine 4.4, glucose 227, calcium 8.4. Abdominal x-ray shows bilateral renal stones. ASSESSMENT AND PLAN: 1. Status post cystoscopy with bilateral retrograde ureteral pyelogram with a bladder biopsy. We will await the pathology results. Continue to monitor closely. 2. Nausea with poor appetite. The patient is scheduled to undergo an endoscopy on Wednesday. Continue on Protonix. 3. Urinary tract infection secondary to yeast. Since both cultures continuously coming back with yeast, we will start the patient on Diflucan. 4. Chronic kidney disease stage 5D. Management as per Dr. Jones. 5. Diabetic ketoacidosis. Resolved. 6. Insulin-dependent diabetes mellitus. We will adjust the 70-30 dosage. 7. Anemia. The hemoglobin and hematocrit is a little bit lower today. Continue to monitor closely, transfuse p.r.n. 8. Severe protein calorie malnutrition. Continue with IDPN during dialysis. The possibility of placing an NG tube was discussed with the patient's and the patient. They would like to wait until after the endoscopy on Wednesday depending on what the results show. 9. Hypertension. Continue on the current antihypertensive regimen. 10. Folate deficiency. Continue with folic acid replacement. 11. Deep vein thrombosis prophylaxis. Continue with SCDs. 12. Disposition. The patient and his were updated on the current treatment plan. cc: Fartun Li MD [facility]
[2019-03-03] MEDS: DIFLUCAN 100 MG/NS 100 MG/50 ML IVPB IV SCH (21:06)
[2019-03-03] MEDS: SODIUM CHLORIDE 0.9% 10 ML ONE (21:06)
[2019-03-04] MEDS: HUMULIN R SUBQ SCH ×4 (06:22→20:32)
[2019-03-04 07:02] LABS: BASO# 0.02 X1000 (0.0-0.2); BASO% 0.3 % (0.0-0.8); EOS# 0.22 X1000 (0.0-0.7); EOS% 3.8 % (0.0-10.0); HEMATOCRIT 24.5 % (42.0-52.0); HEMOGLOBIN 7.5 g/dL (14.0-18.0); IMM GRAN# 0.07 X1000 (0.0-0.04); IMM GRAN% 1.2 % (0.0-0.5); LYMPH# 1.62 X1000 (1.2-3.4); LYMPH% 27.6 % (20.5-51.1); MCH 27.2 PG (27-31); MCHC 30.6 g/dL (33-37); MCV 88.8 FL (81-99); MONO# 0.67 X1000 (0.11-0.59); MONO% 11.4 % (1.7-9.3); NEUT# 3.26 X1000 (1.4-6.5); NEUT% 55.7 % (42.2-75.2); PLT 232 X1000 (130-400); RBC 2.76 XMIL (4.7-6.1); RDW 14.3 % (11.5-14.5); WBC 5.86 X1000 (4.8-10.8)
[2019-03-04 08:06] LABS: ALBUMIN 2.1 g/dL (3.5-5.0); CALCIUM 8.2 mg/dL (8.8-10.2); CREATININE 3.6 mg/dL (0.7-1.2); PHOSPHORUS 2.5 mg/dL (2.7-4.5); POTASSIUM 3.9 mmol/L (3.5-5.1)
[2019-03-04] MEDS: FOLIC ACID PO SCH (08:40)
[2019-03-04] MEDS: HUMULIN 70/30 SUBQ SCH ×2 (08:40→17:04)
[2019-03-04] MEDS: PROTONIX IV SCH ×2 (08:40→21:09)
[2019-03-04] MEDS: MYCOSTATIN POWDER TOP SCH ×2 (08:45→21:13)
--- NOTE | 2019-03-04 18:24 | PROGRESS NOTE ---
DATE: 03/04/2019 SUBJECTIVE: The patient is sitting up in bed. He states that he feels a little bit better today. He managed to eat some fruit yesterday evening, and states that he did not vomit after eating it. He also had a good night. OBJECTIVE: Vital Signs: Temperature 98 degrees, blood pressure 104/56, heart rate 94, respirations 18, O2 saturation is 100% on room air. General: This is a chronically ill- appearing, elderly male, lying in bed in no acute distress. Heart: S1, S2 normal. Regular rate and rhythm. Lungs: Equal air entry bilaterally. No wheezing. No rales. No rhonchi. Abdomen: Positive bowel sounds. Soft, nontender, nondistended. Extremities: Edema 1+. Neurologic: Alert and oriented x4. LABORATORY DATA: White blood cell count 5.8, hemoglobin 7.5, hematocrit 24, platelets 232,000. Sodium 136, potassium 3.9, chloride 100, CO2 of 19, BUN 22, creatinine 3.6, glucose 337. ASSESSMENT AND PLAN: 1. Status post cystoscopy with bilateral retrograde ureteropyelogram with a bladder biopsy. The pathology results are currently pending. Continue to monitor closely. 2. Nausea with a poor appetite. Continue to monitor over the weekend. The patient is scheduled to undergo endoscopy on Wednesday. Continue on Protonix. 3. Urinary tract infection secondary to yeast. The patient is on Diflucan. 4. Chronic kidney disease stage 5D. Management as per Dr. Jones. 5. Poorly controlled insulin-dependent diabetes mellitus. Continue on Humulin 70/30 twice a day plus sliding scale insulin. 6. Diabetic ketoacidosis. Resolved. 7. Anemia. The patient's hemoglobin and hematocrit are trending downward. We will continue to monitor closely. 8. Severe protein-calorie malnutrition. Continue with IDPN during dialysis. The patient has been encouraged to eat whatever he feels like eating at this point. 9. Hypertension. Stable. 10. Deep vein thrombosis prophylaxis. Continue with SCDs. 11. Disposition. The patient and his were updated on the current treatment plan. cc: Fartun Li MD
--- NOTE | 2019-03-04 19:45 | NEPHROLOGY PROGRESS NOTE ---
DATE: 03/04/2019 SUBJECTIVE: He is alert this morning. Remains anorexic, though he has not vomited. The plan is for EGD on Wednesday. OBJECTIVE: Vital Signs: Blood pressure 148/58, heart rate 87, respiration 18, afebrile. Urine output 150 mL. General: No acute distress. Skin: Warm and dry. Conjunctivae are pink. Neck veins are not visible. Heart: Regular. Lungs: Equal. No crackles. Abdomen: Benign. Extremities: No edema, clubbing, or cyanosis. IMPRESSION/PLAN: 1. Acute kidney injury without recovery. Planned dialysis treatment is Wednesday. Electrolytes/acid base/volume status all in target. 2. Anemia. Hemoglobin is stable at 7.5. Does not yet meet criteria for transfusion. 3. Blood pressure in target. 4. Nausea and vomiting. I appreciate the assistance of the consultants. cc: Stefano Jones MD
[2019-03-04] MEDS: DIFLUCAN 100 MG/NS 100 MG/50 ML IVPB IV SCH (21:08)
[2019-03-04] MEDS: COMPAZINE IV PRN (22:37)
--- NOTE | 2019-03-04 22:39 | PROVIDER PROGRESS NOTE ---
Progress Note S: No acute overnight events. He denies N/V. He reports primarily lower abdominal pain that is improving. He has mild epigastric pain. No rectal b leeding or melena. He is tolerating minimal diet. O: Last Vital Signs Temp 97.8 F 03/04/19 20:00 Pulse 93 H 03/04/19 20:00 Resp 20 03/04/19 20:00 BP 128/53 03/04/19 20:00 Pulse Ox 100 03/04/19 20:00 Height 6 ft Weight 187 lb GEN: awake, alert, NAD HEENT: anicteric, MMM NECK: supple, no JVD PULM: CTAB, no wheezing CV: RRR, no murmurs ABD: ND, minimal suprapubic and epigastric TTP, BS present EXT: no cce NEURO: nonfocal LABS: 03/04/19 03/04/19 05:45 05:45 WBC 5.86 Hgb 7.5 L Plt Count 232 Sodium 136 Potassium 3.9 Chloride 100 Carbon Dioxide 19 L Anion Gap 17 BUN 22 Creatinine 3.6 H Glucose 337 H Albumin 2.1 L A/P: Mr. Broussard is a 69 year old man with IDDM2, ESRD on HD who was admitted with DKA now resolved. GI consulted for intractable N/V. The patient has been having gross hematuria and worsening blood loss anemia. Imaging showed bilateral kidney stones and stones in the bladder. He is s/p cystoscopy with retrograde pyelogram and cystolitholapaxy, and biopsy with fulguration. His lower abdominal pain, nausea, and difficulty tolerating PO is improving. Continue antiemetics, PPI BID, and diet as tolerated. Will plan diagnostic EGD Wednesday. Of note, he has rising AG and glucose # Nausea/vomiting # Abdominal pain # DKA # Hematuria # Kidney/bladder stones # ESRD # Acute blood loss anemia Will follow with you. Please call with questions.
[2019-03-05 06:14] LABS: BASO# 0.02 X1000 (0.0-0.2); BASO% 0.4 % (0.0-0.8); EOS# 0.22 X1000 (0.0-0.7); EOS% 4.1 % (0.0-10.0); HEMATOCRIT 24.9 % (42.0-52.0); HEMOGLOBIN 7.8 g/dL (14.0-18.0); IMM GRAN# 0.07 X1000 (0.0-0.04); IMM GRAN% 1.3 % (0.0-0.5); LYMPH% 26.1 % (20.5-51.1); MCH 27.3 PG (27-31); MCHC 31.3 g/dL (33-37); MCV 87.1 FL (81-99); MONO# 0.67 X1000 (0.11-0.59); MONO% 12.5 % (1.7-9.3); NEUT# 2.99 X1000 (1.4-6.5); NEUT% 55.6 % (42.2-75.2); PLT 244 X1000 (130-400); RBC 2.86 XMIL (4.7-6.1); RDW 14.3 % (11.5-14.5); WBC 5.37 X1000 (4.8-10.8)
[2019-03-05] MEDS: HUMULIN R SUBQ SCH ×4 (06:16→20:17)
[2019-03-05 06:43] LABS: CREATININE 4.2 mg/dL (0.7-1.2); PHOSPHORUS 2.6 mg/dL (2.7-4.5); POTASSIUM 3.9 mmol/L (3.5-5.1)
[2019-03-05] MEDS: PROTONIX IV SCH ×2 (08:55→20:11)
[2019-03-05] MEDS: HUMULIN 70/30 SUBQ SCH ×2 (08:55→17:38)
[2019-03-05] MEDS: MYCOSTATIN POWDER TOP SCH ×2 (08:55→20:20)
[2019-03-05] MEDS: FOLIC ACID PO SCH (08:55)
--- NOTE | 2019-03-05 19:08 | PROGRESS NOTE ---
DATE: 03/05/2019 SUBJECTIVE: The patient is resting comfortably. He states that he is feeling a lot better today. He ate shrimp last night and even this morning. He denies any nausea. OBJECTIVE: Vital Signs: Temperature 98 degrees, blood pressure 153/65, heart rate 89, respirations 17, O2 saturations 100% on room air. General: This is a chronically ill-appearing elderly male lying in bed in no acute distress. Heart: S1, S2 normal. Regular rate and rhythm. Lungs: Equal air entry bilaterally. No wheezing. No rales. No rhonchi. Abdomen: Positive bowel sounds. Soft, nontender, nondistended. Extremities: Trace pedal edema. Neurologic: The patient is alert and oriented x4. LABS: White blood cell count 5.3, hemoglobin 7.8, hematocrit 24, platelets 244,000. Sodium 138, potassium 3.9, chloride 103, CO2 22, BUN 25, creatinine 4.2, glucose 287, phosphorus 2.6. ASSESSMENT AND PLAN: 1. Status post cystoscopy with bilateral retrograde ureteral pyelogram with a bladder biopsy. The pathology report is currently pending. 2. Nausea. The patient is scheduled for to undergo an EGD tomorrow. Continue on Protonix. 3. Urinary tract infection secondary to yeast. Continue on Diflucan. 4. Chronic kidney disease stage 5D. Management as per Dr. Jones. 5. Poorly controlled insulin-dependent diabetes mellitus. Continue on Humulin 70/30 daily, plus sliding scale insulin. 6. Diabetic ketoacidosis. Resolved. 7. Severe protein calorie malnutrition. Continue with intradialytic parenteral nutrition during dialysis. 8. Anemia. Stable. 9. Hypertension. Stable. 10. Deep vein thrombosis prophylaxis. Continue with sequential compression devices. 11. Disposition. Continue with physical therapy. cc: Fartun Li MD [facility]
[2019-03-05] MEDS: DIFLUCAN 100 MG/NS 100 MG/50 ML IVPB IV SCH (20:11)
[2019-03-05] MEDS: COMPAZINE IV PRN (21:03)
--- NOTE | 2019-03-05 23:23 | PROVIDER PROGRESS NOTE ---
Progress Note S: No overnight events. No N/V, epigastric pain. +Non-bloody BMs. He reports some lower abdominal pain. No diarrhea or constipation. O: Last Vital Signs Temp 98 F 03/05/19 22:54 Pulse 91 H 03/05/19 22:54 Resp 18 03/05/19 22:54 BP 154/64 03/05/19 22:54 Pulse Ox 100 03/05/19 22:54 Height 6 ft Weight 188 lb GEN: awake, alert, NAD HEENT: anicteric, MMM NECK: supple, no JVD PULM: CTAB, no wheezing CV: RRR, no murmurs ABD: ND, minimal suprapubic and epigastric TTP, BS present EXT: no cce NEURO: nonfocal LABS: 03/05/19 03/05/19 05:11 05:11 WBC 5.37 Hgb 7.8 L Plt Count 244 Sodium 138 Potassium 3.9 Chloride 103 Carbon Dioxide 22 L BUN 25 H Creatinine 4.2 H A/P: Mr. Broussard is a 69 year old man with IDDM2, ESRD on HD who was admitted with DKA now resolved. GI consulted for intractable N/V. The patient has been having gross hematuria causing worsening blood loss anemia. Imaging showed bilateral kidney stones and stones in the bladder. He is s/p cystoscopy with retrograde pyelogram and cystolitholapaxy, and biopsy with fulguration. He has mild abdominal pain likely urologic. N/V resolved. Continue antiemetics prn, PPI BID, and diet as tolerated. Will plan diagnostic EGD Wednesday. Transfuse prn for goal hgb 7-8. NPO after MN. # Nausea/vomiting - resolved # Abdominal pain - improving # DKA - improved # Hematuria # Kidney/bladder stones # ESRD # Acute blood loss anemia Will follow with you. Please call with questions.
[2019-03-06] MEDS ORDERED: SODIUM CHLORIDE 0.9% 10 ML ONE ×2 (06:05→09:24)
[2019-03-06] MEDS: HUMULIN R SUBQ SCH ×4 (06:08→21:56)
[2019-03-06] MEDS ORDERED: HEPARIN IV PRN (06:17)
[2019-03-06] MEDS ORDERED: NS 2,000 ML MISC PRN (06:17)
[2019-03-06] MEDS ORDERED: TIGHT: 0.2 ML/HR FOR DIALYSIS MISC PRN (06:17)
[2019-03-06 06:40] LABS: BASO# 0.02 X1000 (0.0-0.2); BASO% 0.4 % (0.0-0.8); EOS# 0.19 X1000 (0.0-0.7); EOS% 4.1 % (0.0-10.0); HEMATOCRIT 24.3 % (42.0-52.0); HEMOGLOBIN 7.5 g/dL (14.0-18.0); IMM GRAN# 0.03 X1000 (0.0-0.04); IMM GRAN% 0.6 % (0.0-0.5); LYMPH# 1.36 X1000 (1.2-3.4); LYMPH% 29.3 % (20.5-51.1); MCH 26.9 PG (27-31); MCHC 30.9 g/dL (33-37); MCV 87.1 FL (81-99); MONO# 0.61 X1000 (0.11-0.59); MONO% 13.1 % (1.7-9.3); MPV 9.8 FL (7.4-10.4); NEUT# 2.43 X1000 (1.4-6.5); NEUT% 52.5 % (42.2-75.2); PLT 248 X1000 (130-400); RBC 2.79 XMIL (4.7-6.1); RDW 14.5 % (11.5-14.5); WBC 4.64 X1000 (4.8-10.8)
[2019-03-06 06:43] LABS: ALBUMIN 2.1 g/dL (3.5-5.0); CALCIUM 7.9 mg/dL (8.8-10.2); CREATININE 4.4 mg/dL (0.7-1.2); PHOSPHORUS 2.7 mg/dL (2.7-4.5); POTASSIUM 3.5 mmol/L (3.5-5.1)
[2019-03-06] MEDS ORDERED: HUMULIN 70/30 SUBQ SCH ×2 (07:00→21:00)
[2019-03-06] MEDS ORDERED: DIPRIVAN 1% ONE (11:27)
--- NOTE | 2019-03-06 11:36 | ENDOSCOPY OPERATIVE NOTE ---
[facility] ENDOSCOPY OPERATIVE NOTE , EGD PROCEDURE REPORT EXAM DATE: 03/06/2019 PATIENT NAME: Lars Broussard MR#: [id number] BIRTHDATE: 1950 ATTENDING: Doug Berkowitz MD STATUS: inpatient DRILL RUNNER: Frederick Del Rio and Annabella Contreras INDICATIONS: The patient is a 69 yr old male here for an EGD due to Nausea Vomiting, Anemia, ESRD on HD M/W/Fr, DKA, Abdominal pain, Hematuria. PROCEDURE PERFORMED: EGD w/ biopsy MEDICATIONS: Per Anesthesia ESTIMATED BLOOD LOSS: None CONSENT: The patient understands the risks and benefits of the procedure and understands that these r isks include, but are not limited to: sedation, allergic reaction, infection, perforation and/or bleeding. Alternative means of evaluation and treatment include, among others: physical exam, x-rays, and/or surgical intervention. The patient elects to proceed with this endoscopic procedure. DESCRIPTION OF PROCEDURE: During pre-op preparation period all mechanical and medical equipment was c hecked for proper function. Hand hygiene and appropriate measures for infection prevention was taken. After the risks, benefits and alternatives of the procedure were thoroughly explained, Informed consent was verified, confirmed and timeout was successfully executed by the treatment team. The patient was anesthetized with topical anesthesia and the AC92-k37 ([id number]) endoscope was introduced through the mouth and advanced to the second portion of the duoden um. Retroflexion was performed in the stomach and revealed Gastritis; Possible gastric Varix. The gastroscope was the n slowly withdrawn and removed. The patient's toleration of the procedure was good. ESOPHAGUS: Reflux esophagitis was found in the lower third of the esophagus and at the gastroesophage al junction. Esophagitis was LA Class B: One or more mucosal breaks > 5mm, but without continuity across mucosal f olds. Z line was noted at 42 cms from the incisors. STOMACH: Mild bile gastritis (inflammation) was found in the entire examined stomach. Multiple biops ies were performed using cold forceps. Sample sent for histology. Chronic gastritis vs Portal Hypertensive Gastropath y was noted in the stomach body; Biopsied as above. CT scan showed liver cysts and Pancreatic atrophy. Bile was noted at the stomach. DUODENUM: The duodenal mucosa showed no abnormalities in the duodenal bulb, 1st part duodenum, and 2n d part duodenum. ADVERSE EVENTS: There were no complications. IMPRESSIONS: 1. Reflux esophagitis in the lower third of the esophagus and at the gastroesophage al junction 2. Z line was noted at 42 cms from the incisors 3. Bile gastritis (inflammation) was found in the entire examined stomach; multiple biopsies were pe rformed 4. Chronic gastritis vs Portal Hypertensive Gastropathy was noted in the stomach body; Biopsied as a saray. CT scan showed liver cysts and Pancreatic atrophy 5. The duodenal mucosa showed no abnormalities in the duodenal bulb, 1st part duodenum, and 2nd part duodenum RECOMMENDATIONS: 1. Await biopsy results 2. Start anti-reflux diet. 3. Start Proton pump inhibitor daily - 30 minutes before a meal 4. USG abdomen to evaluate for Portal Hypertension/Cirrhosis REPEAT EXAM: Doug Berkowitz MD eSigned: Doug Berkowitz MD 03/06/2019 11:35 AM CC: CPT CODES: 37859 Upper gastrointestinal endoscopy including esophagus, stomach, and either the du odenum and/or jejunum as appropriate; with biopsy, single or multiple ICD CODES: The ICD and CPT codes recommended by this software are interpretations from the data that the [facility] staff has captured with the software. The verification of the translation of this report to the ICD and CPT co sesar and modifiers is the sole responsibility of the health care institution and practicing physician where this report was generated. [employer] will not be held responsible for the validity of the ICD and CPT codes i ncluded on this report. [facility] assumes no liability for data contained or not contained herein. CPT is a registered tra [employer]ark of the [employer]. PATIENT NAME: Lars Broussard MR#: [id number]
[2019-03-06] MEDS: NEPHRO-VITE PO SCH (13:54)
[2019-03-06] MEDS: MYCOSTATIN POWDER TOP SCH ×2 (13:55→21:56)
[2019-03-06] MEDS: FOLIC ACID PO SCH (13:55)
[2019-03-06] MEDS: PROTONIX IV SCH ×2 (13:55→21:55)
--- NOTE | 2019-03-06 14:41 | PROVIDER PROGRESS NOTE ---
Progress Note Subjective: he complains of abdominal discomfort that waxes and wanes. Objective: 98.5, pulse 93, respirations 15, blood pressure 139/61, 02 sat 92% on room air. General: chronically ill white male in no acute distress. HEENT: normocephalic, atraumatic, conjunctiva pale pink, pupils equal and reactive. Skin: right tunnel catheter Neck: supple, no evidence of JVD. Cardiovascular: S1S2, regular rate and rhythm, soft systolic murmur. No gallop. Respiratory: clear anteriorly with equal air entry Abdomen: generalized tenderness, soft, nondistended. Bowel sounds active : non-inspected Extremities: generalized edema to the bilateral upper extremities with trace bilateral lower extremity edema. Neurological: alert and oriented to person, place, and time. Labs: Wbc 4.64, hemoglobin 7.5, hematocrit 24.3, platelet count to 48, sodium 140, potassium 3.5, chloride 106, carbon dioxide 25, BUN 26, creatinine 4.4, albumin 2.1. Intake 500, output 625. Impression: Acute tubular necrosis without recovery related to septic shock. He will have hemodialysis today with a 2K bath and attempt a 2 to 3 L ultrafiltration as tolerated. Blood pressure. In target. Fluid volume. Euvolemic on exam. Anemia. Low. Electrolytes and acid base balance. Stable. Nutrition. Parenteral nutrition during dialysis. Medication review. No changes.
--- NOTE | 2019-03-06 16:07 | Diag Imaging Result Doc PS360 ---
EXAM: US ABDOMEN-COMPLETE 03/06/2019 HISTORY: Eval for portal hypertension/cirrhosis TECHNIQUE: Abdominal ultrasound COMMENT: The study is suboptimal technically due to the patient's body habitus. There is antegrade flow in the portal vein. There is an ill-defined and heterogeneous fluid collection the gallbladder fossa. This may represent residual seroma or hematoma from the cholecystectomy on 02/17/2019. There is no evidence of hydronephrosis. There is a 8 mm stone in the right renal collecting system lower pole. There is also a 9 mm calculus in the left kidney without evidence of hydronephrosis. The common bile duct measures 5 mm. There are no abnormal fluid collections. The aorta and pancreas are not well demonstrated. The spleen is not enlarged. IMPRESSION: No evidence of portal vein thrombosis. Postsurgical changes. Bilateral nephrolithiasis. Electronically signed by Kvng Lizama 03/06/2019 4:05 PM
--- NOTE | 2019-03-06 17:25 | PROGRESS NOTE ---
DATE: 03/06/2019 SUBJECTIVE: The patient is resting comfortably in bed. He is scheduled for endoscopy today. OBJECTIVE: Vital Signs: Temperature 98.3 degrees, blood pressure 111/66, heart rate 98, respirations 13, O2 saturation 99% on room air. General: This is a chronically ill-appearing elderly male lying in bed in no acute distress. Heart: S1, S2 normal. Regular rate and rhythm. Lungs: Equal air entry bilaterally. No wheezing. No rales. No rhonchi. Abdomen: Positive bowel sounds. Soft, nontender, nondistended. Extremities: No edema. No cyanosis. No calf tenderness. Neurologic: The patient is alert and oriented x4. LABS: White blood cell count 4.6, hemoglobin 7.5, hematocrit 24, platelets 248,000. Sodium 140, potassium 3.5, chloride 106, CO2 25, BUN 26, creatinine 4.4, glucose 397. ASSESSMENT AND PLAN: 1. Status post cystoscopy with bilateral retrograde ureteral pyelogram with bladder biopsy secondary to gross hematuria. The hematuria appears to have resolved. The pathology is currently pending. 2. Nausea. Improved. The patient has been eating more according to his . The patient also reports that his appetite is slowly returning. He is scheduled to undergo an EGD today. We will await the results. 3. Urinary tract infection secondary to yeast. The patient is on Diflucan. 4. Chronic kidney disease stage 5D. The patient is due for dialysis today. 5. Poorly controlled insulin-dependent diabetes mellitus. The patient's blood sugars today have been running in the upper 200s to 300s. Will adjust the insulin regimen. 6. Severe protein calorie malnutrition. The patient is receiving intradialytic parenteral nutrition during dialysis. 7. Diabetic ketoacidosis. Resolved. 8. Hypertension. Stable. 9. Anemia. The patient's hemoglobin and hematocrit are low but stable. 10. Continue with physical therapy. 11. Disposition. Once the patient is medically stable, he will be discharged home with home health services. cc: Fartun Li MD [facility]
[2019-03-06] MEDS ORDERED: MELATONIN PO ONE (21:44)
[2019-03-06] MEDS: DIFLUCAN 100 MG/NS 100 MG/50 ML IVPB IV SCH (21:55)
[2019-03-07] MEDS ORDERED: SODIUM CHLORIDE 0.9% 10 ML ONE ×2 (05:52→08:38)
[2019-03-07 06:15] LABS: BASO# 0.02 X1000 (0.0-0.2); BASO% 0.4 % (0.0-0.8); EOS# 0.18 X1000 (0.0-0.7); EOS% 3.2 % (0.0-10.0); HEMOGLOBIN 7.9 g/dL (14.0-18.0); IMM GRAN# 0.05 X1000 (0.0-0.04); IMM GRAN% 0.9 % (0.0-0.5); LYMPH# 2.16 X1000 (1.2-3.4); LYMPH% 38.8 % (20.5-51.1); MCH 27.4 PG (27-31); MCHC 31.6 g/dL (33-37); MCV 86.8 FL (81-99); MONO# 0.71 X1000 (0.11-0.59); MONO% 12.8 % (1.7-9.3); MPV 9.9 FL (7.4-10.4); NEUT# 2.44 X1000 (1.4-6.5); NEUT% 43.9 % (42.2-75.2); PLT 253 X1000 (130-400); RBC 2.88 XMIL (4.7-6.1); RDW 14.3 % (11.5-14.5); WBC 5.56 X1000 (4.8-10.8)
[2019-03-07] MEDS: HUMULIN R SUBQ SCH ×3 (06:23→16:33)
[2019-03-07 06:35] LABS: ALBUMIN 2.2 g/dL (3.5-5.0); CALCIUM 7.8 mg/dL (8.8-10.2); CREATININE 3.5 mg/dL (0.7-1.2); POTASSIUM 3.2 mmol/L (3.5-5.1)
[2019-03-07] MEDS: FOLIC ACID PO SCH (08:31)
[2019-03-07] MEDS: PROTONIX IV SCH (08:31)
[2019-03-07] MEDS: MYCOSTATIN POWDER TOP SCH ×2 (08:31→20:48)
[2019-03-07] MEDS: NEPHRO-VITE PO SCH (08:31)
[2019-03-07] MEDS ORDERED: HUMULIN 70/30 SUBQ SCH ×2 (09:00)
[2019-03-07] MEDS: DIFLUCAN PO SCH (10:36)
--- NOTE | 2019-03-07 11:10 | GASTROENTEROLOGY PROGRESS NOTE ---
DATE: 03/07/2019 SUBJECTIVE: Mr. Broussard is a 69-year-old male, resting in bed. Family is at the bedside. The patient has denied any nausea, vomiting, or abdominal pain. He is on a renal diet, and he was able to tolerate his diet fairly well. His did mention noticing scant amount of blood in the urine. OBJECTIVE: Vital Signs: Temperature 98 degrees, pulse 86, respirations 17, blood pressure 123/68, oxygen saturation 100% on room air. The patient's weight is 188 pounds, BMI is 25.5 kg/m2. General: He is alert and oriented x3, and in no acute distress. HEENT: Pale conjunctivae. No icterus. PERRL. Neck: Supple. Lungs: Clear to auscultation. Cardiovascular: Regular rate and rhythm. Abdomen: Soft, nondistended. Tender in the lower quadrants. Active bowel sounds present. Extremities: No clubbing, no cyanosis, no edema. Pedal pulses 2+ present bilaterally. The patient has the left big toe amputated, and the tip of the third toe is necrotic. Neurologic: Alert and oriented x3. IMAGING AND LABORATORY DATA: WBC is 5.56, RBC 2.88, hemoglobin 7.9, hematocrit is 25.0, platelet count is 253,000. Sodium 140, potassium 3.2, chloride 104, carbon dioxide 26, anion gap 10, BUN 23, creatinine 3.5, glucose 99, calcium 7.8, phosphorus 2.0, albumin is 2.2. IMAGING: The patient's abdominal ultrasound yesterday showed no evidence of portal vein thrombosis, postsurgical changes, bilateral nephrolithiasis. EGD FINDINGS: The patient had an EGD done yesterday. He had reflux esophagitis in the lower third of the esophagus and in the gastroesophageal junction. Bile gastritis found in the entire stomach. Multiple biopsies were performed. Chronic gastritis versus portal hypertensive gastropathy was noted in the stomach body. Biopsies were taken. His CT scan has shown liver cyst and pancreatic atrophy. Duodenal mucosa showed no abnormalities in the duodenal bulb, first part, and the second part. Biopsies are pending. IMPRESSION AND PLAN: Nausea and vomiting GERD with esophagitis Gastritis ESRD Hematuria Acute blood loss anemia Abdominal pain UTI with yeast infection PLAN: Mr. Broussard is a 69-year-old, male, who recently had a cholecystectomy. GI is following him for his nausea and vomiting. The patient's nausea and vomiting has been under control. He is receiving antiemetic, Zofran 4 mg IV as needed. His abdominal pain is under control. He had an EGD done yesterday, he had reflux esophagitis and bile gastritis. We will continue the patient with the PPIs. The patient is currently receiving TPN at 333 mL/h for his nutrition. He is on Diflucan for his UTI with yeast infection per PCP. Patient's H & H today is 7.9 and 25.0, it has slightly trended upwards. mentioned noticing scant amount of blood in the urine. We will continue to monitor the patient, and follow the plan of care per PCP. This plan was discussed with Dr. Smith. Please call us for any further questions or concerns. Dictated by BRANDON Martinez for Patricio Smith MD Physician Attestation I have seen and examined the patient. I have discussed and reviewed the note by Lacey TAYLOR and agree with findings and plan as documented. Mr. Broussard is a 69 year old man with IDDM2, ESRD on HD who was admitted with DKA now resolved. GI consulted for intractable N/V. The patient has been having gross hematuria causing worsening blood loss anemia. Imaging showed bilateral kidney stones and stones in the bladder. He is s/p cystoscopy with retrograde pyelogram and cystolitholapaxy, and biopsy with fulguration. EGD Wednesday shows reflux esophagitis and gastritis. Continue PPI. Will sign off. Follow-up with GI in 4-6 weeks. MTDD
--- NOTE | 2019-03-07 11:37 | PROGRESS NOTE ---
DATE: 03/07/2019 INTERVAL HISTORY: The patient underwent EGD yesterday, which had suggested bile gastritis, and biopsies were taken. He did not have any other acute overnight events. SUBJECTIVE: Mr. Broussard was sitting in the chair by the bed. His is around. He still feels significantly weak. His appetite and oral intake have been improving. He denies chest pain, shortness of breath, cough. He denies any more nausea, vomiting, or abdominal pain. His hematuria is improving, though notices there is still a little bit of blood coming out. He has had bowel movements in the last 48 hours. We discussed about multiple medical conditions, need for close physician followup, and looking at his weakness during my encounter, I also recommended that he should go to rehab. However, he is a little reluctant, but wants to think about it. OBJECTIVE: Vital Signs: Temperature of 98 degrees, pulse 86, respiratory rate 17, blood pressure 123/68, saturating 100% on room air. General: Not in acute distress. HEENT: Oral cavity is moist. Lungs: Air entry bilaterally equal. No wheeze, rhonchi, or crackles. Cardiovascular: S1, S2 normal. No murmur or gallop. Abdomen: Soft, nontender. Active bowel sounds. Chest: He has a right chest hemodialysis catheter. Extremities: No lower extremity edema. Neurologic: He is alert and oriented x3. He does have some hearing impairment. LABORATORY DATA: Hemoglobin of 7.9, platelets of 253,000. Potassium of 3.2, he does have BUN of 23, creatinine of 3.5, blood glucose of 353. MICROBIOLOGY/IMAGING: No new microbiological or imaging data. Yesterday, abdominal ultrasound did not have any evidence of portal vein thrombosis, though it was a suboptimal study. ASSESSMENT AND PLAN: 1. Uncontrolled insulin-dependent diabetes mellitus type 2 with hyperglycemia leading to diabetic ketoacidosis on presentation, now resolved. Continue current dose of NPH 70/30 insulin with sliding scale insulin. Follow up blood sugar closely. 2. Intractable nausea and vomiting on presentation, now seems to be improving. Esophagogastroduodenoscopy had detected bilateral gastritis. I will change his pantoprazole to oral once a day for at least 30 days, and he would need outpatient Gastroenterology followup, which I informed him about. 3. Urinary tract infection due to yeast. The patient has been on intravenous Diflucan. I will change it to oral fluconazole, and will complete the quick course. 4. Chronic kidney disease stage 5D. The patient has been on intermittent hemodialysis since 01/2019. He has right-sided chest dialysis catheter. Nephrology team on board. 5. Others. Continue folic acid for folic acid deficiency anemia. 6. Disposition. The patient appears to be hemodynamically getting better. He would benefit from going to rehab, which I strongly recommended them. They are yet to decide. Based on that, I will consider discharging them in the next 24 hours. Plan of care discussed with the patient and his at bedside. All of their questions have been satisfactorily answered. cc: Lincoln Culp MD
--- NOTE | 2019-03-07 13:20 | PROVIDER PROGRESS NOTE ---
Progress Note Subjective: He voices nausea has slightly improved. He denies any other uremic complaints. Objective: temperature 98.0, pulse 86, respirations 17, blood pressure 123/68, O2 sat 100% on room air. General: chronically ill white male in no acute distress. HEENT: normocephalic, atraumatic, conjunctiva pale pink, pupils equal and reactive. Skin: right tunnel catheter. Pale, warm, and dry. Neck: supple, no evidence of JVD. Cardiovascular: S1S2, regular rate and rhythm, soft systolic murmur. No gallop. Respiratory: clear anteriorly with equal air entry Abdomen: generalized tenderness, soft, nondistended. Bowel sounds active : non-inspected Extremities: generalized edema to the bilateral upper extremities with trace bilateral lower extremity edema. Neurological: alert and oriented to person, place, and time. Labs: WBC 5.56, hemoglobin 7.9, hematocrit 25.0, platelet count 253, sodium 140, potassium 3.2, chloride 104, carbon dioxide 26, BUN 23, creatinine 3.5, albumin 2.2, intake 1060, output 2084. Impression: Acute tubular necrosis without recovery related to septic shock. He had his routine hemodialysis treatment without complications. Blood pressure. In target. Fluid volume. Euvolemic on exam. Anemia. Low, but stable. Does not meet transfusion criteria. Electrolytes and acid base balance. Stable. Nutrition. Parenteral nutrition during dialysis. Medication review. Nephrovite added.
[2019-03-07] MEDS: HUMALOG SUBQ SCH (20:51)
[2019-03-08 05:53] LABS: CALCIUM 7.8 mg/dL (8.8-10.2); CREATININE 3.6 mg/dL (0.7-1.2); POTASSIUM 3.1 mmol/L (3.5-5.1)
[2019-03-08] MEDS: HUMALOG SUBQ SCH ×4 (06:00→20:37)
[2019-03-08] MEDS: PRILOSEC PO SCH (06:05)
[2019-03-08] MEDS ORDERED: HEPARIN IV PRN (08:13)
[2019-03-08] MEDS ORDERED: NS 2,000 ML MISC PRN (08:13)
[2019-03-08] MEDS: D50W 250 ML, AMINOSYN 15% 500 ML, LIPOSYN 20% 250 ML MISC SCH ×3 (08:20)
[2019-03-08] MEDS: NEPHRO-VITE PO SCH (12:16)
[2019-03-08] MEDS: DIFLUCAN PO SCH (12:16)
[2019-03-08] MEDS: FOLIC ACID PO SCH (12:16)
[2019-03-08] MEDS: MYCOSTATIN POWDER TOP SCH ×2 (12:17→20:41)
[2019-03-08] MEDS: HUMULIN 70/30 SUBQ SCH ×2 (12:28→16:51)
--- NOTE | 2019-03-08 13:28 | PROGRESS NOTE ---
DATE: 03/08/2019 INTERVAL HISTORY: No overnight events. SUBJECTIVE: Mr. Broussard just went for dialysis, came back feeling better. We discussed about the brittle diabetes. His is at bedside. We discussed about adjusting his insulin dose. VITALS: Temperature of 97.6 degrees, pulse 89, respiratory rate 16, blood pressure 113/65, saturating 98% on room air. PHYSICAL EXAMINATION: Not in acute distress. Oral cavity is moist. Lungs: Air entry bilaterally equal. No wheeze, rhonchi, or crackles. He has a right-sided chest dialysis catheter. Abdomen is soft, nontender. No lower extremity edema. He is alert and oriented x3. He has hearing impairment. LABS: No CBC today. BMP suggestive of potassium of 3.5, elevated BUN and creatinine, blood glucoses have been fluctuating. No new microbiological or imaging data. ASSESSMENT AND PLAN: 1. Uncontrolled insulin-dependent diabetes mellitus type 2 with hyperglycemia and hypoglycemia leading to diabetic ketoacidosis on presentation. Decrease insulin NPH 70/30 dose to 20 units twice a day with meals and continue sliding scale insulin. 2. Intractable nausea and vomiting on presentation. Esophagogastroduodenoscopy had gastritis. Continue oral proton pump inhibitors with outpatient gastroenterology followup. 3. Urinary tract infection due to yeast. Complete the course of oral fluconazole which was already started. 4. Chronic kidney disease stage 5D, on intermittent hemodialysis on Mondays, Wednesdays, Fridays, now through a right-sided chest dialysis catheter. Nephrology team on board. 5. Chronic anemia. Continue folic acid for folic acid deficiency. 6. Disposition. The patient wants to go home. I will monitor him for 24 hours. Anticipate discharge in 24 hours if his blood glucose is in acceptable range. Plan of care discussed with the patient and his at bedside. Their questions have been answered. cc: Lincoln Culp MD
[2019-03-08 13:49] LABS: HEPATITIS PROFILE ACUTE SEE COMMENTS
--- NOTE | 2019-03-08 14:55 | PROVIDER PROGRESS NOTE ---
Progress Note Subjective: He is currently receiving his routine hemodialysis without complications. He voices feeling better and has not had any recent nausea and vomiting. states a little more urine. Objective: temperature 97.6, pulse 89, respirations 18, blood pressure 129/60, 02 sat 98% on room air. General: chronically ill white male in no acute distress. HEENT: normocephalic, atraumatic, conjunctiva pale pink, pupils equal and reactive. Skin: right tunnel catheter. warm, and dry. Neck: supple, no evidence of JVD. Cardiovascular: S1S2, regular rate and rhythm, soft systolic murmur. No gallop. Respiratory: clear anteriorly with equal air entry Abdomen: soft, nondistended, nontender, Bowel sounds active : non-inspected Extremities: generalized edema to the bilateral upper extremities with trace bilateral lower extremity edema. Neurological: alert and oriented to person, place, and time. Labs: sodium 139, potassium 3.1, chloride 102, carbon dioxide 27, BUN 23, creatinine 3.6. Intake 50, output 150. Impression: Chronic kidney disease stage 5D. He is having his routine hemodialysis treatment now with a 2 k bath and attempting ultrafiltration to last post dialysis weight. Blood pressure. In target. Fluid volume. Euvolemic on exam. Anemia. Stable. Electrolytes and acid base balance. Stable. Potassium 3.1. Observe. Nutrition. Parenteral nutrition during dialysis. Medication review. Nephrovite added.
[2019-03-09] MEDS: HUMALOG SUBQ SCH ×2 (06:19→11:53)
[2019-03-09] MEDS: PRILOSEC PO SCH (06:19)
[2019-03-09 07:56] VITALS: BP 96/49
[2019-03-09] MEDS: FOLIC ACID PO SCH (08:08)
[2019-03-09] MEDS: DIFLUCAN PO SCH (08:08)
[2019-03-09] MEDS: NEPHRO-VITE PO SCH (08:08)
[2019-03-09] MEDS: HUMULIN 70/30 SUBQ SCH (08:09)
--- NOTE | 2019-03-09 10:51 | DISCHARGE SUMMARY ---
ADMISSION DATE: 02/27/2019 DISCHARGE DATE: 03/09/2019 DISCHARGE DISPOSITION: Home with home physical therapy and home occupational therapy. The patient was advised to go to rehab; however, he had decided, along with his and other family members, to go home with home physical therapy despite understanding the benefits of going to the inpatient rehab. DISCHARGE CONDITION: Hemodynamically stable. His blood glucose reasonably well controlled. He has not had any hypoglycemic episode in the last almost 36 hours. He is on a stable dose of insulin. He was advised to maintain blood glucose log. Follow up with his regular physician within 1 week's time. He understood the instructions. DISCHARGE DIAGNOSES: 1. Uncontrolled insulin-dependent diabetes mellitus type 2 with hyperglycemia and hypoglycemia. 2. Diabetic ketoacidosis on presentation. 3. Intractable nausea and vomiting due to diabetic ketoacidosis, as well as acute bile gastritis. 4. Urinary tract infection due to yeast cystitis. 5. Hematuria due to stones in urinary bladder. 6. Folic acid deficiency. OTHER DIAGNOSES: 1. Recently developing kidney dysfunction since January 2019 requiring intermittent hemodialysis through right-sided chest tunneled dialysis catheter. 2. Recently diagnosed insulin-dependent diabetes mellitus. 3. Chronic anemia. 4. Recent laparoscopic cholecystectomy in February 2019. DISCHARGE MEDICATIONS: 1. Nephro-[place] 1 tablet daily. 2. Insulin NovoLog 70/30 at 20 units with meals b.i.d., a 30-day supply with 2 refills have been prescribed. 3. Pantoprazole 40 mg daily. PHYSICAL EXAMINATION: Vital Signs: At the time of discharge, temperature 98.1 degrees, pulse 87, respiratory rate 19, blood pressure 96/50, saturating 98% room air. General: On physical examination, Mr. Broussard was not in acute distress. HEENT: Oral cavity is moist. Lungs: Air entry bilaterally equal. No wheeze, rhonchi, crackles. Cardiovascular: S1, S2 normal. He had mild systolic murmur affecting 2nd intercostal space. He has a right-sided chest hemodialysis tunnel catheter. Abdomen: Soft, nontender. Extremities: No lower extremity edema. Neurologic: He was alert and oriented x3. He was able to perform flexion and extension at hip, knee, ankle, shoulder, and elbow joints bilaterally. Pupils are equal, reacting to light. SIGNIFICANT LABS: At the time of discharge, WBC 5.5, hemoglobin 7.9, platelet 253,000. Sodium 139, potassium 3.1, BUN 23, creatinine 3.6, blood glucose 364. SIGNIFICANT MICROBIOLOGY: Three of the urine cultures grew yeast, and he received a 10-day course of fluconazole. SIGNIFICANT IMAGING DURING HOSPITAL ADMISSION: 1. Chest x-ray on 02/27/2019 did not have any acute cardiopulmonary process. 2. Abdomen and pelvis CT on 02/27/2019 had a recent cholecystectomy with small amount of hyperdense fluid in the gallbladder fossa suggestive off residual blood products and possibly Gel-Foam, bilateral nephrolithiasis with several new small stones in the lumen of the urinary bladder that were not present on previous examination. Small right effusion and trace left effusion and soft tissue anasarca. 3. Retrograde pyelogram on 03/02/2019 had lower left ureteral filling defects representing small stones or air bubbles. 4. Abdomen ultrasound on 03/06/2019 had no evidence of portal vein thrombosis. There were postsurgical changes and bilateral nephrolithiasis. SIGNIFICANT PATHOLOGY DURING HOSPITAL ADMISSION: 1. Bladder biopsy had reactive urothelium with erosion, chronic active inflammation including numerous eosinophils, granulation tissue formation and edema. 2. Gastric biopsy had Helicobacter pylori negative chronic active gastritis. 3. Electrocardiogram on 02/27/2019 had normal sinus rhythm, cannot rule out anterior infarct. PROCEDURES DURING HOSPITAL ADMISSION: 1. Endoscopy on 03/06/2019 performed by GI physician had reflux esophagitis in the lower third of esophagus and at the GE junction, bile gastritis in the entire stomach, chronic gastritis versus portal hypertensive gastropathy in the stomach body. However, the ultrasound did not suggested portal hypertension, normal duodenal mucosa. 2. On 02/27/2019, he underwent cystoscopic exam with bilateral retrograde ureteral pyelograms, cystolitholapaxy and cold cup bladder biopsies with fulguration which he tolerated well. HOSPITAL COURSE SUMMARY: Mr. Broussard is a 69-year-old man who presented on 02/27/2019 with a past medical history of insulin-dependent diabetes mellitus, end-stage renal disease on Wednesday, Wednesday, Wednesday hemodialysis since February 2018, and a recent admission for acute cholecystitis requiring cholecystectomy, and DKA, who came in with chief complaints of persistent nausea and vomiting of about 3 days' duration. Apparently, the patient was discharged on 02/22/2019 after cholecystectomy and treatment of diabetic ketoacidosis. However, at that time, he was recommended to go to rehab, but he had decided to go home, and since going home, he had progressive functional decline with recurrence of nausea and vomiting with erratic blood glucose level, so he was brought back to the emergency room. In the emergency room, he was hemodynamically stable with blood pressure of 105/75, but he was complaining of abdominal pain. He had elevated anion gap, metabolic acidosis with hyperglycemia, so he was diagnosed with diabetic ketoacidosis and was admitted for further management. During hospital admission, he initially required insulin drip after intravenous fluid resuscitation, and later on it was transitioned to subcutaneous insulin with NPH 70/30, which he was tolerating well throughout the later part of the hospital admission. He did have challenges with hyperglycemia and hypoglycemia, and his insulin dose needed to be adjusted. At the time of discharge, he has adequate level of blood glucose control on current regimen. He was advised to have outpatient followup with regular physician. He also had elevated troponins without any history of coronary artery disease or chest pain symptoms. It was thought to be related to end-stage renal disease, and he was advised to have outpatient Cardiology followup. While inside the hospital, he did develop episodes of hematuria, and CT scan of the abdomen and pelvis had detected bilateral nephrolithiasis, as well as stones in the urinary bladder, so he underwent cystoscopy examination by Dr. Sullivan, and his bladder stones were extracted and fragmented out, which he tolerated well. Later on, he did not have any more hematuria, though he is on dialysis he was making a little bit of urine. Nephrology team gave him routine dialysis. His urine culture was growing yeast multiple times. He was treated with 7 to 10 days of fluconazole. At the time of discharge, he was recommended to go to rehab; however, he had requested to go home on home physical therapy, which has been arranged. TIME SPENT: More than 30 minutes of time was spent discharging this patient. Plan of care was extensively discussed with the patient and his at bedside. All of their questions satisfactorily answered. They were provided instructions about following up with kidney doctor for dialysis, regular physician for diabetes control, and urologist. cc: Lincoln Culp MD [id number]
[2019-03-09] MEDS: MYCOSTATIN POWDER TOP SCH (11:54)
[2019-03-09] MEDS ORDERED: FLU VACCINE IM ONE (12:03)
--- NOTE | 2019-03-09 12:45 | PROVIDER PROGRESS NOTE ---
Progress Note Subjective: He voices having his days and nights mixed up. He is drowsy. Objective: temperature 98.1, pulse 87, respirations 19, blood pressure 96/49, 02 sat 98% on room air. General: chronically ill white male in no acute distress. HEENT: normocephalic, atraumatic, conjunctiva pale pink, pupils equal and reactive. Skin: right tunnel catheter. warm, and dry. Neck: supple, no evidence of JVD. Cardiovascular: S1S2, regular rate and rhythm, soft systolic murmur. No gallop. Respiratory: clear anteriorly with equal air entry Abdomen: soft, nondistended, nontender, Bowel sounds active : non-inspected Extremities: trace bilateral lower extremity edema Neurological: alert and oriented to person, place, and time. Labs: [id number], output [id number]. Impression: Chronic kidney disease stage 5D. He had his routine hemodialysis yesterday without complications. He is discharging today and we will follow up with him in the [facility]. Blood pressure. In target. Fluid volume. Euvolemic on exam. Anemia. Stable. Electrolytes and acid base balance. Stable. Nutrition. Parenteral nutrition during dialysis. Medication review.
== END 2019-03-09 12:45 | disposition home health service (06) | DRG 987 ==
LOC: ED 01:56 → EDIPHOLD 09:29 → SUATTDRO 09:29 → 2N 11:42 → 1N 03-07 18:57
PROVIDERS: ATTEND Internal Medicine